=== PATIENT | male | born 1945 | race Caucasian/White ===

== ENCOUNTER → 2016-09-30 | Outpatient (CLI) | payer OTHER ==
[~2016-09-30] MED LIST: ANSHCCR TOP; ANT25 PO; ASPI81TA28 PO; AZEL0.056 NAE; CLOP1TAB15 PO; CRS/10 PO; DIME50TA49 PO; DUTA0.5C PO; LISI-729 PO; METO25TA3 PO; NITR0.4S UT; PRLSR20 PO
--- NOTE | 2016-09-30 11:15 | DIAGNOSTIC IMAGING REPORT ---
L-SPINE MIN 4 VIEWS ROUTINE CLINICAL HISTORY: M54.30 [id number] COMPARISON STUDY: No previous studies for comparison. FINDINGS: There are multilevel degenerative changes. No fractures subluxations or destructive lesions are visualized on conventional radiographic evaluation. There is moderate facet joint arthropathy at the L4-5 and L5-S1 levels. IMPRESSION: Mild multilevel degenerative change. No fractures subluxations or destructive lesions are visualized on conventional radiographic evaluation Electronically signed by: Cas Arcos M.D. 09/30/2016 11:14 AM Dictated Date/Time: 09/30/2016 11:13 AM
--- NOTE | 2016-09-30 11:17 | DIAGNOSTIC IMAGING REPORT ---
THORACIC SPINE 3 VIEWS HISTORY: Pain. Neuropathy. M54.30 [id number] COMPARISON: None. FINDINGS: There is no fracture. No subluxation. Considerable degenerative disc changes throughout. Anterior osteophytic changes throughout the mid to lower thoracic region. No acute process. Postoperative changes over the pulmonary apices bilaterally. IMPRESSION: Moderate to rather significant degenerative change primarily of the mid to lower thoracic region. No acute process. Electronically signed by: Lazaro Garcia M.D. 09/30/2016 11:15 AM Dictated Date/Time: 09/30/2016 11:15 AM
== END | disposition home or self-care (01) ==
LOC: C.RAD 10:26
PROVIDERS: ATTEND Physician Assistant Medical
DX: M54.30 Sciatica, unspecified side (principal)

== ENCOUNTER → 2016-10-28 | Outpatient (CLI) | payer OTHER ==
[2016-10-28 12:35] LABS: BASO % 0.7 %; BASO ABS # 0.04 K/uL (0-0.2); COMPLETE YES; EOS % 2.7 %; HEMATOCRIT 44.5 % (42-52); IG% 0.5 %; LYMPH % 24.9 %; LYMPH ABS # 1.37 K/uL (1.2-3.4); MEAN CELL VOLUME 90.3 fL (80-100); MEAN CORPUSCULAR HEMOGLOBIN 30.6 pg (25-34); MEAN CORPUSCULAR HGB CONC 33.9 g/dl (32-36); NEUT % 61.2 %; PLATELET COUNT 189 K/uL (130-400); RED BLOOD COUNT 4.93 M/uL (4.7-6.1)
[2016-10-28 14:12] LABS: ESTIMATED AVERAGE GLUCOSE 117 mg/dl; HA1C FLAG Normal (Normal)
== END | disposition home or self-care (01) ==
LOC: C.LABBFT 08:35
PROVIDERS: ATTEND Internal Medicine
DX: R73.01 Impaired fasting glucose (principal)

== ENCOUNTER → 2016-12-23 | Outpatient (CLI) | payer OTHER ==
[2016-12-24 18:20] LABS: ALBUMIN 3.9 G/DL (3.8-4.8); GAMMA GLOBULIN 0.8 G/DL (0.8-1.7); TOTAL PROTEIN 6.2 G/DL (6.2-8.3)
[2016-12-26 14:05] LABS: ALBUMIN % 52.23 %; ALPHA-2-GLOBULIN % 10.18 %; CREATININE UR 116 MG/DL (20-370); GAMMA GLOBULIN % 17.31 %
--- NOTE | 2016-12-29 12:54 | CODING QUERY MEDICAL NECESSITY ---
SUPPORTING DIAGNOSIS NEEDED A supporting diagnosis is required for the test/procedure performed on this patient in order for us to be reimbursed by the patient's insurance. Please provide a supporting diagnosis for the following test/procedure listed below next to the test name along with your signature. *If there is no additional diagnosis for this patient that would support the following test/procedure please document that below next to the test/procedure. Test(s)/Procedure(s) that require a supporting diagnosis: * VITAMIN B12 DIAGNOSIS: Provider Signature: Date: Thank you Jacki [place] [employer] Once completed, please kindly fax back to [phone] For questions please call [phone]
== END | disposition home or self-care (01) ==
LOC: C.LABBFT 10:12
PROVIDERS: ATTEND Internal Medicine
DX: M54.5 Low back pain (principal); M79.606 Pain in leg, unspecified; M54.16 Radiculopathy, lumbar region; G62.9 Polyneuropathy, unspecified

== ENCOUNTER → 2017-01-23 | Outpatient (CLI) | payer OTHER | END | disposition home or self-care (01) | LOC: C.LABBFT 12:54 | PROVIDERS: ATTEND Urology | DX: N40.0 Benign prostatic hyperplasia without lower urinary tract symptoms (principal) ==

== ENCOUNTER → 2017-01-29 | Outpatient (CLI) | payer OTHER ==
--- NOTE | 2017-01-29 12:38 | DIAGNOSTIC IMAGING REPORT ---
LEFT HIP UNILATERAL 2 VIEWS CLINICAL HISTORY: 71 years-old Male presenting with left hip pain, no injury. TECHNIQUE: Frontal and frog-leg lateral views of the left hip were obtained. COMPARISON: Correlation made to CT of the abdomen and pelvis from 2010. FINDINGS: No acute fracture or malalignment. Joint space appears preserved. Mild degenerative changes with suggestion of subchondral sclerosis and cystic change at the superior acetabulum. Humeral head is normal in configuration. Atherosclerosis. Pelvic phlebolith noted. IMPRESSION: No acute osseous injury of the left hip. Degenerative changes as above. Electronically signed by: Quoc Ponce M.D. 01/29/2017 12:36 PM Dictated Date/Time: 01/29/2017 12:34 PM
== END | disposition home or self-care (01) ==
LOC: C.RAD 12:09
PROVIDERS: ATTEND Physician Assistant Medical
DX: M25.552 Pain in left hip (principal)

== ENCOUNTER → 2017-03-13 | Outpatient (CLI) | payer OTHER ==
--- NOTE | 2017-03-13 13:20 | DIAGNOSTIC IMAGING REPORT ---
FLUOROSCOPICALLY GUIDED LEFT HIP INTRA-ARTICULAR STEROID INJECTION CLINICAL HISTORY: Left hip degenerative joint disease. COMPARISON STUDY: Left hip radiographs January 29, 2017. FLUOROSCOPY TIME: 16 seconds. PROCEDURE: The procedure, risks and benefits were discussed with the patient. The patient agreed to the procedure and informed written consent was obtained. The procedure was performed by Dr. Chance following a timeout. Skin overlying the left hip joint was prepped and draped in sterile fashion and local anesthesia was achieved with 1% lidocaine. Under intermittent fluoroscopic guidance, a 3 1/2 inch 22-gauge spinal needle was directed into the left hip joint. Positioning within the joint space was confirmed with injection of 1 cc of Optiray 300. At this time, a mixture of 2 cc of Celestone and 5 cc of 0.5% Marcaine was injected into the left hip joint. The needle was removed. The patient tolerated the procedure well and no immediate complications were evident. One fluoroscopic image was obtained. IMPRESSION: Fluoroscopically guided left hip intra-articular injection of 2 cc of Celestone and 5 cc of 0.5% Marcaine. Electronically signed by: Royal Chance M.D. 03/13/2017 1:19 PM Dictated Date/Time: 03/13/2017 1:18 PM
== END | disposition home or self-care (01) ==
LOC: C.RADBC 12:26
PROVIDERS: ATTEND Orthopaedic Surgery
DX: M16.12 Unilateral primary osteoarthritis, left hip (principal)

== ENCOUNTER → 2018-02-19 | Outpatient (CLI) | payer OTHER ==
[~2018-02-19] MED LIST changes: +COEN100C28 PO; -CRS/10 PO; +FLUT50SP45 NAE; -LISI-729 PO; +LSN/10125 PO; +MONT1TAB5 PO; -PRLSR20 PO; +RANI150T85 PO; +ROSU20TA PO
--- NOTE | 2018-02-19 11:15 | DIAGNOSTIC IMAGING REPORT ---
SI JOINTS 3 OR MORE VIEWS CLINICAL HISTORY: 72 years-old Male presenting with M46.1 Sacroiliitis. TECHNIQUE: Frontal and bilateral oblique views of the sacroiliac joints were obtained. COMPARISON: CT of abdomen pelvis from 2010. FINDINGS: Asymmetric sclerosis and cystic change suggested at the superior aspect of the right sacroiliac joint. Otherwise sacroiliac joints symmetric and congruent. No evidence of erosion or osseous fusion. Arcuate lines of the sacrum grossly intact. Endoscopy clip projects over the right lower quadrant. IMPRESSION: Subchondral sclerosis and cystic change at the superior portion of the right sacral iliac joint. This is nonspecific and may represent degenerative change. No convincing evidence of osseous erosion to suggest an inflammatory arthropathy. Further evaluation with MR could be obtained as clinically appropriate. Electronically signed by: Quoc Ponce M.D. 02/19/2018 11:14 AM Dictated Date/Time: 02/19/2018 11:09 AM
== END | disposition home or self-care (01) ==
LOC: C.RAD1850 10:56
PROVIDERS: ATTEND Physician Assistant Medical
DX: M46.1 Sacroiliitis, not elsewhere classified (principal)

== ENCOUNTER → 2018-02-19 | Outpatient (CLI) | payer OTHER | END | disposition home or self-care (01) | LOC: C.LABBFT 09:24 | PROVIDERS: ATTEND Physician Assistant Medical | DX: N40.1 Benign prostatic hyperplasia with lower urinary tract symptoms (principal) ==

== ENCOUNTER 2018-07-19 19:49 | Inpatient (IN) | END 2018-07-22 17:55 | disposition home or self-care (01) | LOC: ED 19:49 → SUATTDRO 22:36 → 2N 22:36 ==

== ENCOUNTER 2018-11-22 07:12 | Observation (INO) ==
--- NOTE | 2018-11-22 07:31 | Emergency Department Note ---
Entered by Izabel Gabriel acting as a scribe for Zeeshan Melgoza MD History of Present Illness General Chief complaint: Chest Pain Source: patient and EMS Mode of arrival: ambulatory Limitations: no limitations History of Present Illness Provider complaint: chest pain Onset (ago): week(s) (a few) Location: chest Radiation: extremity (shoulders) and other (jaw) Pain Consistency: + intermittent Quality: + other (pressure) Exacerbated By: + other (exertion) Associated symptoms: + other (dizzy); no diaphoresis, no nausea/vomiting, no shortness of breath and no weakness Treatments prior to arrival: aspirin The patient is a 73 year old male who presents to the ER via EMS with complaints of an intermittent chest pain that began a few weeks ago. The patient describes the pain as a �pressure� and reports that it does radiate to his shoulders and jaw at times. He denies any episodes of diaphoresis. He also states that the pain onsets when exerting himself but notes today�s episode did not. He reports that he did have an episode of dizziness yesterday but denies any injuries, trauma, nausea, or vomiting. He also denies any shortness of breath or pain when breathing. Per EMS, the patient was given aspirin en route. He denies any numbness or weakness anywhere. The patient notes that he does have 2 stents ashley jennifer. Home Medications Home Medications Medication Instructions Recorded Confirmed Type azelastine 0.15 % (205.5 mcg) 2 sprays INTNAS HS 03/12/18 11/22/18 History nasal spray clopidogrel 75 mg tablet 75 mg PO HS 03/12/18 11/22/18 History coenzyme Q10 100 mg capsule 100 mg PO BID cap 03/12/18 11/22/18 History dutasteride 0.5 mg capsule 0.5 mg PO QDL 03/12/18 11/22/18 History fluticasone propionate 50 2 sprays INTNAS QAM 03/12/18 11/22/18 History mcg/actuation nasal spray,suspension metoprolol succinate ER 25 mg 25 mg PO QDL 03/12/18 11/22/18 History capsule sprinkle, ext. release 24 hr montelukast 10 mg tablet 10 mg PO HS 03/12/18 11/22/18 History nitroglycerin 0.3 mg sublingual 0.3 mg SL Q5M PRN 03/12/18 11/22/18 History tablet ranitidine 150 mg tablet 150 mg PO BID 03/12/18 11/22/18 History rosuvastatin 20 mg tablet 20 mg PO HS 03/12/18 11/22/18 History aspirin [Aspir-81] 81 mg PO QAM 07/19/18 11/22/18 History lisinopril-hydrochlorothiazide 1 tab PO QAM 07/19/18 11/22/18 History hydrocortisone 2.5 % topical cream 1 applic PA .USE DIRECTED. #1 gm 11/19/18 11/22/18 History with perineal applicator Allergies Allergy/AdvReac Type Severity Reaction Status Date / Time Sulfa (Sulfonamide Allergy Intermediate HIVES Verified 11/22/18 09:13 Antibiotics) pravastatin AdvReac Mild MUSCLE Verified 11/22/18 09:13 ACHES simvastatin AdvReac Mild MUSCLE Verified 11/22/18 09:13 ACHES Past Med/Surg History Medical History Other chronic sinusitis (Acute) Sciatica (Acute) Sacroiliitis (Acute) Retention of urine (Acute) Presence of stent in LAD coronary artery (Acute) Pre-diabetes (Acute) Polyneuropathy (Acute) Paresthesia of right arm (Acute) Obesity (Acute) Nephrolithiasis (Acute) Nasal polyps (Acute) Microscopic hematuria (Acute) Lumbar radiculopathy (Acute) Low back pain (Acute) Keloid scar (Acute) Inguinal hernia (Acute) Impaired fasting glucose (Acute) Hypertrophy of nasal turbinates (Acute) Hemorrhoids (Acute) Dyslipidemia (Acute) Chronic sinusitis, unspecified (Acute) Carotid artery plaque (Acute) Benign prostate hyperplasia (Acute) Benign localized hyperplasia of prostate with urinary obstruction (Acute) Benign colonic polyp (Acute) Anosmia (Acute) Allergic rhinitis (Acute) Actinic keratosis (Acute) Acquired deviated nasal septum (Acute) Encounter for pre-operative examination Chest pain (Acute) Chest pain (Acute) Dysuria (Acute) Pneumonia (Acute) Unstable angina (Acute 04/08/14) Vertigo (Acute) Constantine disease (Chronic) Cor athrscl-uns vessel (Chronic 08/22/12) Benign hypertension (Chronic 08/22/12) BPH w/o urinary obs/LUTS (Chronic 08/22/12) Encounter for pre-operative examination CAD (coronary artery disease) GERD (gastroesophageal reflux disease) Acute blood loss anemia Hypertension (Chronic) Arthritis (Chronic) PAD (peripheral artery disease) (Chronic) Chronically on Plavix Calculus of kidney (Resolved 08/22/12) BPH (benign prostatic hyperplasia) (Acute) CAD (coronary artery disease) GERD (gastroesophageal reflux disease) Hyperlipidemia Osteoarthritis Surgical History Percutaneous transluminal coronary angioplasty status (08/22/12) History of adenoidectomy History of inguinal herniorrhaphy History of umbilical hernia repair History of tonsillectomy H/O transurethral resection of prostate History of cardiac cath 2007 AND 2012 History of cataract surgery LEFT CATARACT History of colonoscopy History of esophagogastroduodenoscopy (EGD) History of heart artery stent 2007 AND 2012 (2 TOTAL STENTS) History of herniorrhaphy RT/LEFT INGUINAL History of tonsillectomy History of tooth extraction Nasal polyps REMOVED Family History Grandmother Family history of diabetes mellitus Father Coronary heart disease Mother Coronary heart disease Social History Preferred Language: Frisian Communication Ability: Effective Beliefs That Will Affect Care: None marital status: / Current Living Situation: Alone current occupational status: retired 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 Other Information That Helps Us Care for You: No Feels Safe at Home: Yes Safety Concerns: Feels Safe At This Time Smoking Status: Former smoker Tobacco Type: cigarettes packs per day: 1 Years S moked: 20 Smoking End Date: 2004 Number of Years Since Quit: 14 Second Hand Exposure: No Hx Alcohol Use: Yes Hx Substance Use: No Review of Systems See HPI for pertinent positives & negatives. and A total of 10 systems reviewed and were otherwise negative Physical Exam Vital Signs Vital Signs - 24 hr 11/22/18 07:30 11/22/18 08:32 11/22/18 09:03 Temperature 36.7 C Temperature Source Oral Sepsis Recent Fever Within 48 Hours No Sepsis New/Unexplained Change in Mental Status No Sepsis Action Taken by Nursing No Action Required Pulse Rate 70 Pulse Rate [Apical] 55 L 57 L Pulse Rhythm [Apical] Regular Regular Pulse Strength [Apical] Normal Normal Respiratory Rate 19 16 16 Respiratory Effort / Characteristics Non-Labored Non-Labored Spontaneous Respiratory Depth Normal Normal Blood Pressure 185/86 H Blood Pressure [Right Arm] 142/80 H 161/79 H Blood Pressure Mean 119 Blood Pressure Mean [Right Arm] 100 106 Blood Pressure Position [Right Arm] Sitting Pulse Oximetry 96 96 96 Oxygen Delivery Method Room Air Room Air Room Air 11/22/18 09:05 Temperature Temperature Source Sepsis Recent Fever Within 48 Hours Sepsis New/Unexplained Change in Mental Status Sepsis Action Taken by Nursing Pulse Rate Pulse Rate [Apical] Pulse Rhythm [Apical] Pulse Strength [Apical] Respiratory Rate Respiratory Effort / Characteristics Non-Labored Spontaneous Respiratory Depth Normal Blood Pressure Blood Pressure [Right Arm] Blood Pressure Mean Blood Pressure Mean [Right Arm] Blood Pressure Position [Right Arm] Pulse Oximetry Oxygen Delivery Method Room Air General: Non-ill appearing older male in no acute distress. HEENT: Normal cephalic atraumatic. Pupils are equal round and reactive to light. Extraocular movements are intact. Oropharynx is pink with moist mucous mem branes. No swelling of the mouth lips or tongue. Neck: Supple with a midline trachea. No meningeal signs or stiffness, no JVD or bruits. No Stridor. Chest: Clear to auscultation bilaterally. No wheezes or rhonchi. No increased work of breathing. Heart: Irregular with bigeminy seen on monitor. Abdomen: Soft nontender, nondistended without rebound guarding or rigidity. Extremities: No cyanosis clubbing or edema. No calf tenderness or asymmetry Spine/Back. Non tender to palpation. No CVA tenderness Skin: Good turgor without rashes. Neurologic exam: Cranial nerves two through 12 are intact. Motor and sensation are intact and symmetrical throughout. Course 0717: Past medical records reviewed. The patient was evaluated in room B2. A complete history and physical examination was performed. 0815: I discussed the patient�s case with Dr. Devlin � [facility] Hospitalist. She will evaluate the patient for further management. Administered Medications Aspirin (Ecotrin Ectab) 81 mg PO DAILY LACHELLE Stop: 12/22/18 10:56 Last Admin: 11/22/18 13:07 Dose: 81 mg Documented by: [id number] Lisinopril/HCTZ (Prinzide 10/12.5mg) 1 tab PO DAILY LACHELLE Stop: 12/22/18 10:56 Last Admin: 11/22/18 13:07 Dose: 1 tab Documented by: [id number] Sodium Chloride (Nss 1000ml) 1,000 mls @ 80 mls/hr IV .[id number] LACHELLE Stop: 12/22/18 09:44 Last Admin: 11/22/18 09:57 Dose: 80 mls/hr Documented by: [id number] Metoprolol Succinate (Toprol Xl) 25 mg PO Q24H LACHELLE Stop: 12/22/18 11:59 Last Admin: 11/22/18 13:08 Dose: 25 mg Documented by: [id number] Miscellaneous (Order Awaiting Action) 1 ea N/A QS LACHELLE Stop: 12/22/18 15:59 Last Admin: 11/22/18 15:18 Dose: Not Given Documented by: [id number] Polyethylene Glycol (Miralax Powder Packet) 17 gm PO DAILY LACHELLE Stop: 12/22/18 10:56 Last Admin: 11/22/18 13:07 Dose: Not Given Documented by: [id number] Ranitidine HCl (Zantac) 150 mg PO BID LACHELLE Stop: 12/22/18 10:56 Last Admin: 11/22/18 13:08 Dose: 150 mg Documented by: [id number] Medical Decision Making Differential Diagnosis Differential diagnosis includes: ACS, arrhythmia, CHF, anemia, electrolyte and metabolic abnormality. Medical Records Attestation: I reviewed the patient's medical records. Home Medications Current Medication List: was personally reviewed by me Laboratory Data Attestation: I reviewed the patient's lab results. Result diagrams: 11/22/18 07:24 11/22/18 07:24 Lab Results 11/22/18 11/22/18 11/22/18 Range/Units 07:24 07:24 07:25 WBC 5.80 (4.8-10.8) K/uL RBC 5.03 (4.7-6.1) M/uL Hgb 13.8 L (14.0-18.0) g/dL Hct 41.4 L (42-52) % MCV 82.3 (80-100) fL MCH 27.4 (25-34) pg MCHC 33.3 (32-36) g/dL RDW Std Deviation 44.3 (36.4-46.3) fL RDW Coeff of Rogelio 14.8 H (11.5-14.5) % Plt Count 175 (130-400) K/uL MPV 9.4 (7.4-10.4) fL Immature Gran % (Auto) 0.3 % Neut % (Auto) 68.2 % Lymph % (Auto) 17.2 % Bandera % (Auto) 11.6 % Eos % (Auto) 2.4 % Baso % (Auto) 0.3 % Immature Gran # (Auto) 0.02 (0.00-0.02) K/uL Neut # (Auto) 3.95 (1.4-6.5) K/uL Lymph # (Auto) 1.00 L (1.2-3.4) K/uL Bandera # (Auto) 0.67 H (0.11-0.59) K/uL Eos # (Auto) 0.14 (0-0.5) K/uL Baso # (Auto) 0.02 (0-0.2) K/uL PT 10.8 (9.0-12.0) Seconds INR 1.1 (0.9-1.1) Sodium 143 (136-145) mmol/L Potassium 4.1 (3.5-5.1) mmol/L Chloride 110 H (98-107) mmol/L Carbon Dioxide 26 (21-32) mmol/L Anion Gap 7.0 (3-11) BUN 13 (7-18) mg/dl Creatinine 0.98 (0.6-1.4) mg/dl Est Cr Clr Drug Dosing 80.5 ml/min Est GFR ( Amer) 87.1 Est GFR (Non-Af Amer) 75.1 BUN/Creatinine Ratio 13.3 (10-20) Glucose 122 H (70-99) mg/dl Calcium 8.1 L (8.5-10.1) mg/dl Total Bilirubin 0.4 (0.2-1) mg/dl AST 17 (15-37) U/L ALT 28 (12-78) U/L Alkaline Phosphatase 79 (45-117) U/L Troponin I < 0.015 (0-0.045) ng/ml Total Protein 6.4 (6.4-8.2) gm/dl Albumin 3.2 L (3.4-5.0) gm/dl Globulin 3.2 (2.5-4.0) gm/dl Albumin/Globulin Ratio 1.0 (0.9-2) Lipase 162 (73-393) U/L Imaging Data Radiologist's Impression: Radiology results as stated below per my review and the radiologist's interpretation: XR chest 1V portable CLINICAL HISTORY: Chest Pain dyspnea COMPARISON STUDY: 07/19/2018 FINDINGS: Mild stable cardiomegaly. Improving pleural reactive changes left base. Lungs otherwise appear clear. IMPRESSION: No acute process. The above report was generated using voice recognition software. It may contain grammatical, syntax or spelling errors. Electronically signed by: Lazaro Garcia M.D. 11/22/2018 7:34 AM ECG Data Attestation: I personally reviewed and interpreted this ECG as follows: Indication: chest pain Rate (beats per minute): 59 Rhythm: normal sinus (with couplets) Findings: + other (poor basleine, likely bigeminy, poor R wave progression); no acute ischemic change Comparison ECG Date: from (19-JUL-2018) Change: no significant change Blood Pressure Blood Pressure Findings: Elevated blood pressure Blood Pressure Disposition: further management by hospitalist MDM Narrative This patient comes in as described above. He was placed in room B2. Was brought in by EMS after having intermittent chest pain. It seems mostly exertional. He does have a cardiac history with stents in the past. They gave him aspirin prior to arrival. he was also dizzy yesterday. At present he feels better at rest and has no chest pain. IV access an EKG was obtained. EKG shows bigeminy with poor R wave progression, there is no acute STEMI changes. Multiple blood testing was obtained as well as chest x-ray. He was reassessed frequently. I have reviewed his old records. His initial troponin was negative. Chest x-ray does not suggest acute coronary syndrome or arrhythmia. He does have a significant cardiac history and I am concerned that his symptoms are exertional and concerning for angina. I have consulted the hospitalist for admission/observation. Impression & Plan Chest pain Discharge Plan Visit Data *Final* Discharge Date/Time: 11/22/18 10:31 Chief Complaint: Chest Pain ED Provider: Zeeshan Melgoza Discharge Problem: Chest pain Patient Disposition: Admitted As Inpatient Discharge Instructions Interventions: ED Discharge Assessment Last Done: 11/22/18 10:31 Discharge Problem: Chest pain Qualifiers: Chest pain type: unspecified Qualified Code(s): R07.9 - Chest pain, unspecified The scribe's documentation has been prepared under my direction and personally reviewed by me in its entirety. I confirm that the note above accurately reflects all work, treatment, procedures, and medical decision making performed by me.
[2018-11-22 07:33] LABS: Basophils # (auto) 0.02 K/uL (0-0.2); Basophils % (auto) 0.3 %; Eosinophils # (auto) 0.14 K/uL (0-0.5); Eosinophils % (auto) 2.4 %; Hematocrit (blood only) 41.4 % (42-52); Hemoglobin 13.8 g/dL (14.0-18.0); Immature Granulocytes # (auto) 0.02 K/uL (0.00-0.02); Immature Granulocytes % (auto) 0.3 %; Lymphocytes % (auto) 17.2 %; Mean Corpuscular Hgb Conc 33.3 g/dL (32-36); Mean Corpuscular Volume 82.3 fL (80-100); Mean Platelet Volume 9.4 fL (7.4-10.4); Monocytes # (auto) 0.67 K/uL (0.11-0.59); Monocytes % (auto) 11.6 %; Neutrophils # (auto) 3.95 K/uL (1.4-6.5); Neutrophils % (auto) 68.2 %; Platelet Count 175 K/uL (130-400); RDW Coefficient of Variation 14.8 % (11.5-14.5); RDW Standard Deviation 44.3 fL (36.4-46.3); Red Blood Count 5.03 M/uL (4.7-6.1)
--- NOTE | 2018-11-22 07:35 | XRay Report ---
XR chest 1V portable CLINICAL HISTORY: Chest Pain dyspnea COMPARISON STUDY: 07/19/2018 FINDINGS: Mild stable cardiomegaly. Improving pleural reactive changes left base. Lungs otherwise rafa ear clear. IMPRESSION: No acute process. The above report was generated using voice recognition software. It may contain grammatical, syntax or spelling errors. Electronically signed by: Lazaro Garcia M.D. 11/22/2018 7:34 AM
[2018-11-22 07:50] LABS: Alanine Aminotransferase 28 U/L (12-78); Albumin Level 3.2 gm/dl (3.4-5.0); Aspartate Aminotransferase 17 U/L (15-37); BUN Creatinine Ratio 13.3 (10-20); Blood Urea Nitrogen 13 mg/dl (7-18); Calcium 8.1 mg/dl (8.5-10.1); Carbon Dioxide 26 mmol/L (21-32); Chloride 110 mmol/L (98-107); Creatinine Clr Calc Pharmacy 80.5 ml/min; Est GFR (African American) 87.1; Est GFR (Non-African American) 75.1; Glucose 122 mg/dl (70-99); Potassium 4.1 mmol/L (3.5-5.1); Sodium 143 mmol/L (136-145)
[2018-11-22 07:55] LABS: Alkaline Phosphatase 79 U/L (45-117); Bilirubin,Total 0.4 mg/dl (0.2-1); Globulin 3.2 gm/dl (2.5-4.0); Total Protein 6.4 gm/dl (6.4-8.2); Troponin I < 0.015 ng/ml (0-0.045)
--- NOTE | 2018-11-22 09:20 | History & Physical Report ---
Date of Service November 22, 2018 Assessment & Plan (1) Unstable angina: - Presented with sternal chest pain this morning; has had intermittent episodes of angina with exertion at home for 2-3 weeks. - EKG was similar to prior studies; will trend daily x 2. - Trop was negative; trend q6hr x 3. - Cardiology consulted, follows with Dr. Seals; will be NPO for possible procedure. - Continue metoprolol, statin, aspirin and plavix as prescribed; no indication for Heparin drip or Nitropaste at this time. (2) Coronary artery disease: - Status post cardiac cath in 2007 and 2012 -- has had 2 stents placed during procedures. - Follows with Dr. Seals. - Continue statin, aspirin, plavix, beta miguelangel as prescribed. (3) Benign prostate hyperplasia: - Continue Dutasteride as prescribed -- pt. will need to bring med from home. (4) GERD (gastroesophageal reflux disease): - Continue Ranitidine as prescribed. (5) Benign hypertension: - Continue Metoprolol and HCTZ/Lisinopril as prescribed. - BP was elevated at admission, will monitor. (6) PAD (peripheral artery disease): - Has been evaluated by Dr. Maurice, no surgical intervention indicated. - Continue plavix, aspirin and statin as prescribed. - Has weak left posterior tibial pulse, consider BARRY for evaluation. (7) HLD (hyperlipidemia): - Continue statin as prescribed. (8) Hemorrhoids: - Admitted in Jul 2018 for rectal bleeding, was likely related to hemorrhoids. - Continue Miralax daily to prevent constipation. (9) Allergic rhinitis: - Holding home Flonase and Singulair. (10) History of cataract: - S/p surgical intervention in past. - Does not currently use eye drops. (11) DVT prophylaxis: - Heparin q8hr. FEN/GI: NPO except meds; IVFs at 80 cc/hr due to NPO status; Famotidine BID. Dispo: Med/surg, observation status for cardiac work up. Cardiology consulted. FULL CODE History of Present Illness Chief Complaint: Chest Pain Primary Care Provider: Isaac Mendoza MD Mr. Bee is a 73 year old male with past medical history of coronary artery disease status post placement of 2 stents, HTN, HLD, PAD, BPH, GERD, osteoarthritis who presented with acute chest pain. Pt. has had intermittent chest pain over the last 2-3 weeks. He states chest pain develops with exertion and lasts for up to 1 hour. Denies chest pain at rest prior to admission with exception of this morning. Has radiation of pain to jaw over last few weeks as well during acute episodes; denies nausea/vomiting, SOB at home. He developed dizziness last evening with standing. Pt. felt like he was "staggering" due to symptoms. He woke up this morning around 5:30 am and had sternal chest pain. Pain was rated as a 2/10 on pain scale. Had pain in both elbows, otherwise denied radiation of pain to jaw, neck or arms. Chest pain was ongoing for ~1 hour, is now completely resolved. Denies shortness of breath, LE edema, nausea or vomiting, abd pain, fever/chills, diarrhea or constipation (takes Miralax daily), dysuria or hematuria, recurrent rectal bleeding or melena. Most recent cardiac cath was in 2012; he follows with Dr. Seals and was recently evaluated as outpatient. Pt. was instructed to take Plavix every other day. He does have h/o PAD, was evaluated by Dr. Maurice but surgical intervention was not indicated. He has occasional claudication but denies persistent, severe LLE pain in setting of stenosis. He did take morning meds at home, including Aspirin 81 mg. Has not received Nitroglycerin tablets for chest pain. EKG was similar to prior studies; Troponin was negative. Will admit to observation status for cardiac monitoring and cardiology consult. Allergies Allergy/AdvReac Type Severity Reaction Status Date / Time Sulfa (Sulfonamide Allergy Intermediate HIVES Verified 11/22/18 09:13 Antibiotics) pravastatin AdvReac Mild MUSCLE Verified 11/22/18 09:13 ACHES simvastatin AdvReac Mild MUSCLE Verified 11/22/18 09:13 ACHES Home Medications Home Medications Medication Instructions Recorded Confirmed Type azelastine 0.15 % (205.5 mcg) 2 sprays INTNAS HS 03/12/18 11/22/18 History nasal spray coenzyme Q10 100 mg capsule 100 mg PO BID cap 03/12/18 11/22/18 History dutasteride 0.5 mg capsule 0.5 mg PO QDL 03/12/18 11/22/18 History fluticasone propionate 50 2 sprays INTNAS QAM 03/12/18 11/22/18 History mcg/actuation nasal spray,suspension metoprolol succinate ER 25 mg 25 mg PO QDL 03/12/18 11/22/18 History capsule sprinkle, ext. release 24 hr montelukast 10 mg tablet 10 mg PO HS 03/12/18 11/22/18 History ranitidine 150 mg tablet 150 mg PO BID 03/12/18 11/22/18 History rosuvastatin 20 mg tablet 20 mg PO HS 03/12/18 11/22/18 History aspirin [Aspir-81] 81 mg PO QAM 07/19/18 11/22/18 History lisinopril-hydrochlorothiazide 1 tab PO QAM 07/19/18 11/22/18 History hydrocortisone 2.5 % topical cream 1 applic DE .USE DIRECTED. #1 gm 11/19/18 11/22/18 History with perineal applicator clopidogrel [Plavix] 75 mg PO Q48H #0 tab 11/23/18 11/22/18 Rx isosorbide mononitrate 30 mg PO QAM 30 Days #30 tab 11/23/18 Rx nitroglycerin 0.4 mg SUBLINGUAL Q5M #10 tab 11/23/18 Rx Past Med/Surg History Medical History Other chronic sinusitis (Acute) Sciatica (Acute) Sacroiliitis (Acute) Retention of urine (Acute) Presence of stent in LAD coronary artery (Acute) Pre-diabetes (Acute) Polyneuropathy (Acute) Paresthesia of right arm (Acute) Obesity (Acute) Nephrolithiasis (Acute) Nasal polyps (Acute) Microscopic hematuria (Acute) Lumbar radiculopathy (Acute) Low back pain (Acute) Keloid scar (Acute) Inguinal hernia (Acute) Impaired fasting glucose (Acute) Hypertrophy of nasal turbinates (Acute) Hemorrhoids (Acute) Dyslipidemia (Acute) Chronic sinusitis, unspecified (Acute) Carotid artery plaque (Acute) Benign prostate hyperplasia (Acute) Benign localized hyperplasia of prostate with urinary obstruction (Acute) Benign colonic polyp (Acute) Anosmia (Acute) Allergic rhinitis (Acute) Actinic keratosis (Acute) Acquired deviated nasal septum (Acute) Encounter for pre-operative examination Chest pain (Acute) Chest pain (Acute) Dysuria (Acute) Pneumonia (Acute) Unstable angina (Acute 04/08/14) Vertigo (Acute) Constantine disease (Chronic) Cor athrscl-uns vessel (Chronic 08/22/12) Benign hypertension (Chronic 08/22/12) BPH w/o urinary obs/LUTS (Chronic 08/22/12) Encounter for pre-operative examination CAD (coronary artery disease) GERD (gastroesophageal reflux disease) Acute blood loss anemia Hypertension (Chronic) Arthritis (Chronic) PAD (peripheral artery disease) (Chronic) Chronically on Plavix Calculus of kidney (Resolved 08/22/12) BPH (benign prostatic hyperplasia) (Acute) CAD (coronary artery disease) GERD (gastroesophageal reflux disease) Hyperlipidemia Osteoarthritis Surgical History Percutaneous transluminal coronary angioplasty status (08/22/12) History of adenoidectomy History of inguinal herniorrhaphy History of umbilical hernia repair History of tonsillectomy H/O transurethral resection of prostate History of cardiac cath 2007 AND 2012 History of cataract surgery LEFT CATARACT History of colonoscopy History of esophagogastroduodenoscopy (EGD) History of heart artery stent 2007 AND 2012 (2 TOTAL STENTS) History of herniorrhaphy RT/LEFT INGUINAL History of tonsillectomy History of tooth extraction Nasal polyps REMOVED Family History Grandmother Family history of diabetes mellitus Father Coronary heart disease Mother Coronary heart disease Social History Preferred Language: [place] Communication Ability: Effective Beliefs That Will Affect Care: None marital status: / Current Living Situation: Alone current occupational status: retired 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 Other Information That Helps Us Care for You: No Feels Safe at Home: Yes Safety Concerns: Feels Safe At This Time Smoking Status: Former smoker Tobacco Type: cigarettes packs per day: 1 Years Smoked: 20 Smoking End Date: 2004 Number of Years Since Quit: 14 Second Hand Exposure: No Hx Alcohol Use: Yes Hx Substance Use: No Review of Systems Review of Systems: All systems reviewed & are unremarkable except as noted in HPI & below Constitutional: no fever, no chills, no fatigue, no weakness and no anorexia Eyes: no spots in vision and no worsening vision Ear, Nose, Mouth, Throat: + dizziness (last evening, now resolved. ); no nasal congestion, no nasal discharge, no post nasal drip, no sinus pain/pressure and no sore throat Respiratory: no cough, no chest congestion, no dyspnea, no dyspnea on exertion and no wheezing Cardiovascular: + chest pain, + chest pain at rest, + chest pain with activity, + radiating jaw, neck or arm pain and + claudication (Intermittent ); no dyspnea, no dyspnea at rest, no dyspnea on exertion, no lightheadedness, no syncope, no edema and no calf pain Gastrointestinal: no abdominal pain, no nausea, no vomiting, no constipation, no diarrhea/loose stools, no blood in stools and no melena Genitourinary: no dysuria and no urinary frequency Musculoskeletal: no back pain, no joint pain, no myalgia and no body aches Integumentary: no non-healing lesions Neurologic: + dizziness; no headache(s) Hematologic / Lymphatic: no easy bleeding and no easy bruising Allergy / Immunological: no rash Physical Exam Physical Exam: General: Resting comfortably in no apparent distress HEENT: NC/AT; PERRLA with EOMI; [place] conjunctiva, MMM. No erythema of posterior pharynx Neck: Supple and nontender Cardiac: RRR Lungs: CTA bilaterally Abdomen: Bowel normoactive X 4; Nontender to palpation Rectal: Deferred : Deferred Back: No tenderness Extremities: Warm. No edema present Neuro: No focal weakness Skin: No rash Results & Data Vital Signs (Past 12 Hours) Vital Signs Temp Pulse Pulse Resp BP BP Pulse Ox 11/22/18 09:03 57 L 16 161/79 H 96 11/22/18 08:32 55 L 16 142/80 H 96 11/22/18 07:30 36.7 C 70 19 185/86 H 96 Laboratory Results 11/22/18 11/22/18 Range/Units 07:24 07:24 WBC 5.80 (4.8-10.8) K/uL RBC 5.03 (4.7-6.1) M/uL Hgb 13.8 L (14.0-18.0) g/dL Hct 41.4 L (42-52) % MCV 82.3 (80-100) fL MCH 27.4 (25-34) pg MCHC 33.3 (32-36) g/dL RDW Std Deviation 44.3 (36.4-46.3) fL RDW Coeff of Rogelio 14.8 H (11.5-14.5) % Plt Count 175 (130-400) K/uL MPV 9.4 (7.4-10.4) fL Immature Gran % (Auto) 0.3 % Neut % (Auto) 68.2 % Lymph % (Auto) 17.2 % [place] % (Auto) 11.6 % Eos % (Auto) 2.4 % Baso % (Auto) 0.3 % Immature Gran # (Auto) 0.02 (0.00-0.02) K/uL Neut # (Auto) 3.95 (1.4-6.5) K/uL Lymph # (Auto) 1.00 L (1.2-3.4) K/uL [place] # (Auto) 0.67 H (0.11-0.59) K/uL Eos # (Auto) 0.14 (0-0.5) K/uL Baso # (Auto) 0.02 (0-0.2) K/uL Sodium 143 (136-145) mmol/L Potassium 4.1 (3.5-5.1) mmol/L Chloride 110 H (98-107) mmol/L Carbon Dioxide 26 (21-32) mmol/L Anion Gap 7.0 (3-11) BUN 13 (7-18) mg/dl Creatinine 0.98 (0.6-1.4) mg/dl Est Cr Clr Drug Dosing 80.5 ml/min Est GFR ( Amer) 87.1 Est GFR (Non-Af Amer) 75.1 BUN/Creatinine Ratio 13.3 (10-20) Glucose 122 H (70-99) mg/dl Calcium 8.1 L (8.5-10.1) mg/dl Total Bilirubin 0.4 (0.2-1) mg/dl AST 17 (15-37) U/L ALT 28 (12-78) U/L Alkaline Phosphatase 79 (45-117) U/L Troponin I < 0.015 (0-0.045) ng/ml Total Protein 6.4 (6.4-8.2) gm/dl Albumin 3.2 L (3.4-5.0) gm/dl Globulin 3.2 (2.5-4.0) gm/dl Albumin/Globulin Ratio 1.0 (0.9-2) Lipase 162 (73-393) U/L Code Status & VTE Plan Code Status FULL CODE VTE Prophylaxis Plan VTE Prophylaxis will be ordered: Yes Supervising Physician Co-Signing Physician Notes Attending Admission Note & Attestation - Pt seen/examined, chart reviewed, care plan d/w CARMEN Escalera. I agree w/ the ward components of her admission documentation. 73yo male with known CAD s/p multiple stents in the past (2007, 2012), HTN, and hyperlipidemia who presents with recurrent episodes of chest pain. No associated dyspnea. Some of the episodes have been exertional and some have been at rest. He did not try any nitroglycerin for the symptoms. Last stress test was in 2015 and was normal. No recent travel or other VTE risk factors. No GI symptoms. No pain with movement of the arms. PMH, PSH, allergies, meds, sochx, famhx, ros - reviewed Patient admits to considerable stress/anxiety/depression related to the of his son and which occurred about 1 year ago. VSS except BPs high gen - NAD, a/o x 3 neck - no JVD mouth - MMM heart - extra beats/irregular, s1, s2, no murmur lungs - CTA b/l chest - no reproducible chest wall pain abd - soft NT ND BS+ ext - no edema, pulses 2+ b/l labs - reviewed; troponin negative EKG - NSR, no ST changes, PACs chest x-ray - no infiltrates A/P: 73yo male with known CAD, HTN, hyperlipidemia, BPH, and anxiety/depression related to the of his & son in 2018 presenting with multiple episodes of chest pain over the last few days/weeks. Telemetry, serial troponins, cardiology consult, probable stress test tomorrow AM, NPO after MN. Needs improved BP control. Of note - LDL was 70 in 06/2018 -- defer on lipid check for now. Symptoms unlikely from pulmonary, GI or musculoskeletal etiology based on symptoms. Derrell Chauhan MD (1) GERD (gastroesophageal reflux disease) Esophagitis presence: esophagitis presence not specified Qualified Code(s): K21.9 - Gastro-esophageal reflux disease without esophagitis
[2018-11-22] MEDS: SODIUM CHLORIDE 0.9% 1000ML 1,000 ML IV SCH ×2 (09:57→21:02)
[2018-11-22] MEDS ORDERED: MoRPHine SULFATE 2 MG/ML CARP IV PRN (10:57)
[2018-11-22] MEDS ORDERED: ONDANSETRON INJ 2 MG/ML 2 ML VIAL IV PRN (10:57)
[2018-11-22] MEDS ORDERED: MAGNESIUM HYDROXIDE SUSP 30 ML UDC PO PRN (10:57)
[2018-11-22] MEDS ORDERED: NITROGLYCERIN SL 0.4 MG/TAB TAB SL PRN (10:57)
[2018-11-22 11:49] LABS: INR 1.1 (0.9-1.1); Prothrombin Time 10.8 Seconds (9.0-12.0)
[2018-11-22] MEDS: ASPIRIN 81 MG ECTAB PO SCH (13:07)
[2018-11-22] MEDS: LISINOPRIL/HCTZ 10/12.5MG TAB PO SCH (13:07)
[2018-11-22] MEDS: POLYETHYLENE (MIRALAX) 17 GM PACK PO SCH (13:07)
[2018-11-22] MEDS: METOPROLOL SUCC 25MG EXT REL TAB PO SCH (13:08)
--- NOTE | 2018-11-22 16:07 | Cardiology Consultation ---
Date of Consultation November 22, 2018 Assessment & Plan (1) Chest pain: His chest pain is concerning for angina. However, there are some atypical features such as the bilateral elbow discomfort. His history is somewhat vague at times, but some of the symptoms do appear to be related to exertion. Despite having extended episode of symptoms several days ago his cardiac biomarkers are currently normal. I think we will trend his markers over the course of the evening. If there is no evidence of objective ischemia we can perform dobutamine echocardiography. If there is evidence of ischemia perhaps angiography would be a better option. He can continue on his current dual anti-platelet regimen of aspirin and Plavix. There was some concern regarding occult gastrointestinal bleeding in the past and his Plavix was currently dosed every other day. He should also continue on his beta-miguelangel and rosuvastatin. (2) Coronary artery disease: He has previously undergone percutaneous intervention involving the right coronary and LAD. He did not recall any symptoms of chest discomfort leading up to those interventions. He is on a good regimen for secondary prevention which can be continued during his hospitalization. Based on his dobutamine echocardiogram in 2016 he has preserved LV systolic function. No evidence of pulmonary edema or heart failure at this point. History of Present Illness Reason for Consultation: Chest pain Requesting Physician: Quita Attending Physician: Derrell Chauhan History of Present Illness The patient is a 73-year-old gentleman with an extensive history of both coronary and vascular disease who presented to the hospital with symptoms of chest discomfort. The patient states that for several days he has been experiencing intermittent episodes of chest pain. He describes this as a pressure sensation in his precordium with radiation to both elbows. He states that he also has some numbness involving the right hand. The symptoms appear to occur primarily with exertion. Patient states that he was mowing his lawn last week when he experienced an episode of discomfort. He rested at that time but he states that the symptoms are present for up to an hour. He is not seem to have significant breathing difficulty. He did not report dizziness or lightheadedness. He had no symptoms of presyncope. This morning after wakening patient began to experience symptoms of chest pain as well. Again he was active around his house. He did report some improvement with slowing of activity. The symptoms appear to be present at the time of his evaluation in the emergency room. He cannot recall any specific intervention which resolved his symptoms. He has not had any recurrence of chest discomfort since being admitted to the hospital. In generally claims to be an active individual. He has been attempting to increase his activity recently. He does have some limitations with respect to bilateral hip discomfort but is able to walk extended distances without stopping by report. He cannot recall having had chest pain of this nature in the past. The patient did undergo percutaneous intervention involving his coronaries on 2 occasions previously. He did not report any symptoms of chest discomfort associated with those episodes. Allergies Allergy/AdvReac Type Severity Reaction Status Date / Time Sulfa (Sulfonamide Allergy Intermediate HIVES Verified 11/22/18 09:13 Antibiotics) pravastatin AdvReac Mild MUSCLE Verified 11/22/18 09:13 ACHES simvastatin AdvReac Mild MUSCLE Verified 11/22/18 09:13 ACHES Home Medications Home Medications Medication Instructions Recorded Confirmed Type azelastine 0.15 % (205.5 mcg) 2 sprays INTNAS HS 03/12/18 11/22/18 History nasal spray clopidogrel 75 mg tablet 75 mg PO HS 03/12/18 11/22/18 History coenzyme Q10 100 mg capsule 100 mg PO BID cap 03/12/18 11/22/18 History dutasteride 0.5 mg capsule 0.5 mg PO QDL 03/12/18 11/22/18 History fluticasone propionate 50 2 sprays INTNAS QAM 03/12/18 11/22/18 History mcg/actuation nasal spray,suspension metoprolol succinate ER 25 mg 25 mg PO QDL 03/12/18 11/22/18 History capsule sprinkle, ext. release 24 hr montelukast 10 mg tablet 10 mg PO HS 03/12/18 11/22/18 History nitroglycerin 0.3 mg sublingual 0.3 mg SL Q5M PRN 03/12/18 11/22/18 History tablet ranitidine 150 mg tablet 150 mg PO BID 03/12/18 11/22/18 History rosuvastatin 20 mg tablet 20 mg PO HS 03/12/18 11/22/18 History aspirin [Aspir-81] 81 mg PO QAM 07/19/18 11/22/18 History lisinopril-hydrochlorothiazide 1 tab PO QAM 07/19/18 11/22/18 History hydrocortisone 2.5 % topical cream 1 applic CO .USE DIRECTED. #1 gm 05/17/19 05/20/19 History with perineal applicator Patient History Medical History Other chronic sinusitis (Acute) Sciatica (Acute) Sacroiliitis (Acute) Retention of urine (Acute) Presence of stent in LAD coronary artery (Acute) Pre-diabetes (Acute) Polyneuropathy (Acute) Paresthesia of right arm (Acute) Obesity (Acute) Nephrolithiasis (Acute) Nasal polyps (Acute) Microscopic hematuria (Acute) Lumbar radiculopathy (Acute) Low back pain (Acute) Keloid scar (Acute) Inguinal hernia (Acute) Impaired fasting glucose (Acute) Hypertrophy of nasal turbinates (Acute) Hemorrhoids (Acute) Dyslipidemia (Acute) Chronic sinusitis, unspecified (Acute) Carotid artery plaque (Acute) Benign prostate hyperplasia (Acute) Benign localized hyperplasia of prostate with urinary obstruction (Acute) Benign colonic polyp (Acute) Anosmia (Acute) Allergic rhinitis (Acute) Actinic keratosis (Acute) Acquired deviated nasal septum (Acute) Encounter for pre-operative examination Chest pain (Acute) Chest pain (Acute) Dysuria (Acute) Pneumonia (Acute) Unstable angina (Acute 04/08/14) Vertigo (Acute) Constantine disease (Chronic) Cor athrscl-uns vessel (Chronic 08/22/12) Benign hypertension (Chronic 08/22/12) BPH w/o urinary obs/LUTS (Chronic 08/22/12) Encounter for pre-operative examination CAD (coronary artery disease) GERD (gastroesophageal reflux disease) Acute blood loss anemia Hypertension (Chronic) Arthritis (Chronic) PAD (peripheral artery disease) (Chronic) Chronically on Plavix Calculus of kidney (Resolved 08/22/12) BPH (benign prostatic hyperplasia) (Acute) CAD (coronary artery disease) GERD (gastroesophageal reflux disease) Hyperlipidemia Osteoarthritis Surgical History Percutaneous transluminal coronary angioplasty status (08/22/12) History of adenoidectomy History of inguinal herniorrhaphy History of umbilical hernia repair History of tonsillectomy H/O transurethral resection of prostate History of cardiac cath 2007 AND 2012 History of cataract surgery LEFT CATARACT History of colonoscopy History of esophagogastroduodenoscopy (EGD) History of heart artery stent 2007 AND 2012 (2 TOTAL STENTS) History of herniorrhaphy RT/LEFT INGUINAL History of tonsillectomy History of tooth extraction Nasal polyps REMOVED Family History Grandmother Family history of diabetes mellitus Father Coronary heart disease Mother Coronary heart disease Social History Preferred Language: Swedish Communication Ability: Effective Beliefs That Will Affect Care: None marital status: / Current Living Situation: Alone current occupational status: retired 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 Other Information That Helps Us Care for You: No Feels Safe at Home: Yes Safety Concerns: Feels Safe At This Time Smoking Status: Former smoker Tobacco Type: cigarettes packs per day: 1 Years Smoked: 20 Smoking End Date: 2004 Number of Years Since Quit: 14 Second Hand Exposure: No Hx Alcohol Use: Yes Hx Substance Use: No Review of Systems Review of Systems: All systems reviewed & are unremarkable except as noted in HPI & below He has not report any change in his bowel or bladder habits currently. Appears to be eating well. He denies any sense of palpitation. He denies any swelling of lower extremities. Physical Exam Physical Exam: The patient is alert and oriented. Mood and affect appeared normal. He answered all questions appropriately. HEENT: Pupils are equal and reactive to light and accommodation. Extraocular movements are intact. The sclerae are anicteric. Neuro: Cranial nerves intact Neck: Patient's neck is supple. He has palpable carotid pulses bilaterally without bruits on auscultation. There is no evidence of jugular venous distention. The thyroid is not enlarged. Lungs: Clear to auscultation bilaterally. He has good air movement without use of accessory muscles. No rales wheezes or rhonchi. Cardiac: Heart demonstrates a regular rate and rhythm. Normal S1 and S2. No murmurs on examination. Pulses: The patient has palpable radial pulses bilaterally that are equal in intensity. He has a palpable posterior tibial pulse on the right but not the left leg Extremities: There was no evidence of hypoperfusion. There is no cyanosis or clubbing. There is no edema. Skin: I did not appreciate any rashes on examination today. He has a well- healed scar on the right forearm Results & Data Vital Signs (Past 12 Hours) Vital Signs Temp Pulse Pulse Resp BP BP BP 11/22/18 14:57 36.7 C 55 L 20 154/84 H 11/22/18 13:04 62 150/81 H 11/22/18 12:11 36.5 C 20 92/61 L 11/22/18 11:43 36.8 C 61 18 178/99 H 11/22/18 10:01 57 L 16 161/79 H 11/22/18 09:03 57 L 16 161/79 H 11/22/18 08:32 55 L 16 142/80 H 11/22/18 07:30 36.7 C 70 19 185/86 H Pulse Ox 11/22/18 14:57 96 11/22/18 13:04 11/22/18 12:11 96 11/22/18 11:43 96 11/22/18 10:01 96 11/22/18 09:03 96 11/22/18 08:32 96 11/22/18 07:30 96 Laboratory Results Abnormal Lab Results 11/22/18 11/22/18 11/22/18 07:24 07:24 07:25 WBC 5.80 RBC 5.03 Hgb 13.8 L Hct 41.4 L MCV 82.3 MCH 27.4 MCHC 33.3 RDW Std Deviation 44.3 RDW Coeff of Rogelio 14.8 H Plt Count 175 MPV 9.4 Immature Gran % (Auto) 0.3 Neut % (Auto) 68.2 Lymph % (Auto) 17.2 [place] % (Auto) 11.6 Eos % (Auto) 2.4 Baso % (Auto) 0.3 Immature Gran # (Auto) 0.02 Neut # (Auto) 3.95 Lymph # (Auto) 1.00 L [place] # (Auto) 0.67 H Eos # (Auto) 0.14 Baso # (Auto) 0.02 PT 10.8 INR 1.1 Sodium 143 Potassium 4.1 Chloride 110 H Carbon Dioxide 26 Anion Gap 7.0 BUN 13 Creatinine 0.98 Est Cr Clr Drug Dosing 80.5 Est GFR ( Amer) 87.1 Est GFR (Non-Af Amer) 75.1 BUN/Creatinine Ratio 13.3 Glucose 122 H Calcium 8.1 L Total Bilirubin 0.4 AST 17 ALT 28 Alkaline Phosphatase 79 Troponin I < 0.015 Total Protein 6.4 Albumin 3.2 L Globulin 3.2 Albumin/Globulin Ratio 1.0 Lipase 162 11/22/18 12:11 WBC RBC Hgb Hct MCV MCH MCHC RDW Std Deviation RDW Coeff of Rogelio Plt Count MPV Immature Gran % (Auto) Neut % (Auto) Lymph % (Auto) [place] % (Auto) Eos % (Auto) Baso % (Auto) Immature Gran # (Auto) Neut # (Auto) Lymph # (Auto) [place] # (Auto) Eos # (Auto) Baso # (Auto) PT INR Sodium Potassium Chloride Carbon Dioxide Anion Gap BUN Creatinine Est Cr Clr Drug Dosing Est GFR ( Amer) Est GFR (Non-Af Amer) BUN/Creatinine Ratio Glucose Calcium Total Bilirubin AST ALT Alkaline Phosphatase Troponin I < 0.015 Total Protein Albumin Globulin Albumin/Globulin Ratio Lipase Diagnostic Findings Chest x-ray obtained at the time of admission not reveal any acute cardiopulmonary process Dobutamine echocardiogram performed 2015 did not reveal any evidence of inducible ischemia ECG Additional Comments: EKG obtained the time admission revealed normal sinus rhythm with frequent PACs. No significant ST or T-wave changes
[2018-11-22] MEDS: HEPARIN SOD 5,000 UNIT/0.5 ML VIAL SQ SCH (20:59)
[2018-11-22] MEDS ORDERED: CLOPIDOGREL BISULFATE 75 MG TAB PO SCH (21:00)
[2018-11-22] MEDS ORDERED: ROSUVASTATIN CALCIUM 20 MG TAB PO SCH (21:00)
[2018-11-23] MEDS: ACETAMINOPHEN 325 MG TAB PO PRN ×2 (03:49→15:08)
[2018-11-23] MEDS: HEPARIN SOD 5,000 UNIT/0.5 ML VIAL SQ SCH ×2 (06:04→14:19)
[2018-11-23 07:09] LABS: Hemoglobin 13.3 g/dL (14.0-18.0); Mean Corpuscular Hgb Conc 33.3 g/dL (32-36); Mean Corpuscular Volume 81.6 fL (80-100); Mean Platelet Volume 9.5 fL (7.4-10.4); Platelet Count 161 K/uL (130-400); RDW Standard Deviation 44.4 fL (36.4-46.3); White Blood Count 6.06 K/uL (4.8-10.8)
[2018-11-23 07:43] LABS: BUN Creatinine Ratio 15.2 (10-20); Creatinine Clr Calc Pharmacy 85.8 ml/min; Est GFR (African American) 95.2; Est GFR (Non-African American) 82.2; Magnesium 2.1 mg/dl (1.8-2.4)
[2018-11-23] MEDS: LISINOPRIL/HCTZ 10/12.5MG TAB PO SCH (08:28)
[2018-11-23] MEDS ORDERED: ATROPINE SULFATE 0.1 MG/ML 10ML SYR IV ONE (08:30)
[2018-11-23] MEDS ORDERED: DOBUTamine HCL 12.5 MG/ML 20 ML VIAL IV ONE (08:30)
[2018-11-23] MEDS ORDERED: METOPROLOL TARTRATE 1 MG/ML VIAL IV ONE (08:30)
[2018-11-23] MEDS ORDERED: PERFLUTREN LIPID MICROSPHERE (DEFINITY) IV ONE (09:56)
[2018-11-23] MEDS: ASPIRIN 81 MG ECTAB PO SCH (11:15)
[2018-11-23] MEDS: POLYETHYLENE (MIRALAX) 17 GM PACK PO SCH (11:15)
[2018-11-23] MEDS: METOPROLOL SUCC 25MG EXT REL TAB PO SCH (11:16)
--- NOTE | 2018-11-23 11:33 | Cardiology Progress Note ---
Date of Service November 23, 2018 Assessment & Plan (1) Chest pain: His history is somewhat inconsistent, but he does appear to have some exertional component to his symptoms. He did have some symptoms associated with dobutamine infusion although he could not tell me if this was similar to his p resenting chest discomfort. However, the images do not support significant obstructive cardiovascular disease. He could have some smaller vessel disease that produces angina but no notable wall motion abnormalities on his study. I think an empiric trial of nitrates would be reasonable as an outpatient. He should continue on the remainder of his medical regimen including his every other day Plavix. (2) Coronary artery disease: Continue aggressive secondary prevention. Addition of nitrates as noted above. Subjective This morning the patient did not report additional episodes of chest pain overnight or since being in the hospital. However he did have some symptoms associated with the dobutamine infusion during his stress testing. Review of Systems Review of Systems: Per HPI Physical Exam Physical Exam: The patient is alert and oriented. Mood and affect appeared normal. He answered all questions appropriately. HEENT: Pupils are equal and reactive to light and accommodation. Extraocular movements are intact. The sclerae are anicteric. Neuro: Cranial nerves intact Lungs: Clear to auscultation bilaterally. He has good air movement without use of accessory muscles. No rales wheezes or rhonchi. Cardiac: Heart demonstrates a regular rate and rhythm. Normal S1 and S2. No murmurs on examination. Pulses: The patient has palpable radial pulses bilaterally that are equal in intensity Extremities: There was no evidence of hypoperfusion. There is no cyanosis or clubbing. Skin: I did not appreciate any rashes on examination today. Results & Data Vital Signs (Past 12 Hours) Vital Signs Temp Pulse Pulse Resp BP BP Pulse Ox 11/23/18 11:25 36.8 C 57 L 18 162/79 H 96 11/23/18 07:31 53 L 11/23/18 07:00 36.6 C 66 18 168/98 H 95 11/23/18 03:30 36.8 C 67 16 142/80 H 97 11/23/18 01:28 61 Laboratory Results Abnormal Lab Results 11/22/18 11/22/18 11/22/18 07:25 12:11 18:11 WBC RBC Hgb Hct MCV MCH MCHC RDW Std Deviation RDW Coeff of Rogelio Plt Count MPV PT 10.8 INR 1.1 Sodium Potassium Chloride Carbon Dioxide Anion Gap BUN Creatinine Est Cr Clr Drug Dosing Est GFR ( Amer) Est GFR (Non-Af Amer) BUN/Creatinine Ratio Glucose Calcium Magnesium Troponin I < 0.015 < 0.015 11/23/18 11/23/18 11/23/18 00:14 06:49 06:49 WBC 6.06 RBC 4.90 Hgb 13.3 L Hct 40.0 L MCV 81.6 MCH 27.1 MCHC 33.3 RDW Std Deviation 44.4 RDW Coeff of Rogelio 15.0 H Plt Count 161 MPV 9.5 PT INR Sodium 140 Potassium 4.0 Chloride 109 H Carbon Dioxide 27 Anion Gap 4.0 BUN 14 Creatinine 0.91 Est Cr Clr Drug Dosing 85.8 Est GFR ( Amer) 95.2 Est GFR (Non-Af Amer) 82.2 BUN/Creatinine Ratio 15.2 Glucose 101 H Calcium 8.0 L Magnesium 2.1 Troponin I < 0.015 Diagnostic Findings Dobutamine echocardiogram today did not demonstrate any evidence of inducible ischemia
[2018-11-23] MEDS ORDERED: ISOSORBIDE MONO EXTENDED REL 30 MG TABCR PO SCH (12:15)
--- NOTE | 2018-11-23 12:39 | Discharge Summary ---
Date of Service November 23, 2018 Admission HPI Per Admitting Provider Mr. Bee is a 73 year old male with past medical history of coronary artery disease status post placement of 2 stents, HTN, HLD, PAD, BPH, GERD, osteoarthritis who presented with acute chest pain. Pt. has had intermittent chest pain over the last 2-3 weeks. He states chest pain develops with exertion and lasts for up to 1 hour. Denies chest pain at rest prior to admission with exception of this morning. Has radiation of pain to jaw over last few weeks as well during acute episodes; denies nausea/vomiting, SOB at home. He developed dizziness last evening with standing. Pt. felt like he was "staggering" due to symptoms. He woke up this morning around 5:30 am and had sternal chest pain. Pain was rated as a 2/10 on pain scale. Had pain in both elbows, otherwise denied radiation of pain to jaw, neck or arms. Chest pain was ongoing for ~1 hour, is now completely resolved. Denies shortness of breath, LE edema, nausea or vomiting, abd pain, fever/chills, diarrhea or constipation (takes Miralax daily), dysuria or hematuria, recurrent rectal bleeding or melena. Most recent cardiac cath was in 2012; he follows with Dr. Seals and was recently evaluated as outpatient. Pt. was instructed to take Plavix every other day. He does have h/o PAD, was evaluated by Dr. Maurice but surgical intervention was not indicated. He has occasional claudication but denies persistent, severe LLE pain in setting of stenosis. He did take morning meds at home, including Aspirin 81 mg. Has not received Nitroglycerin tablets for chest pain. EKG was similar to prior studies; Troponin was negative. Will admit to observation status for cardiac monitoring and cardiology consult. Admission Exam Per Admitting Provider General: Resting comfortably in no apparent distress HEENT: NC/AT; PERRLA with EOMI; Forman conjunctiva, MMM. No erythema of posterior pharynx Neck: Supple and nontender Cardiac: RRR Lungs: CTA bilaterally Abdomen: Bowel normoactive X 4; Nontender to palpation Rectal: Deferred : Deferred Back: No tenderness Extremities: Warm. No edema present Neuro: No focal weakness Skin: No rash Principal Diagnosis Chest Pain Discharge Exam General: Resting comfortably in no apparent distress HEENT: NC/AT; PERRLA with EOMI; Forman conjunctiva, MMM. No erythema of posterior pharynx Neck: Supple and nontender Cardiac: RRR Lungs: CTA bilaterally Abdomen: Bowel normoactive X 4; Nontender to palpation Extremities: Warm. No edema present Neuro: No focal weakness Skin: No rash Discharge Data Allergies Allergy/AdvReac Type Severity Reaction Status Date / Time Sulfa (Sulfonamide Allergy Intermediate HIVES Verified 11/22/18 09:13 Antibiotics) pravastatin AdvReac Mild MUSCLE Verified 11/22/18 09:13 ACHES simvastatin AdvReac Mild MUSCLE Verified 11/22/18 09:13 ACHES Consultations 11/22/18 08:17 ED Decision to Admit Stat 11/22/18 10:57 Consult Cardiology Routine Ordered Studies CXR 11/22/18 dobutamine stress echocardiogram - no evidence of inducible ischemia. Hospital Course (1) Chest pain: Presented with sternal chest pain on 11/22/18; had intermittent episodes of chest pain with exertion at home for 2-3 weeks. EKG was similar to prior studies. Serial troponin levels were negative. Cardiology consulted, follows with Dr. Seals. Dobutamine stress echo was negative on 11/23/18. Continued home beta miguelangel, statin, aspirin and plavix as prescribed. Added Imdur 30 mg daily prior to discharge. Chest pain had resolved by time of discharge, no further episodes. Pt. reported that chest pain may be related to stress/anxiety in setting of loss of recent loved ones (his and son). Will need to f/u with cardiology in 1-2 weeks. (2) Coronary artery disease: Status post cardiac cath in 2007 and 2012 -- has had 2 stents placed during procedures. Follows with Dr. Seals. Continued statin, aspirin, plavix, beta miguelangel as prescribed. Imdur 30 mg daily was added. (3) Benign prostate hyperplasia: Continued Dutasteride as prescribed. (4) GERD (gastroesophageal reflux disease): Continued Ranitidine as prescribed. (5) Benign hypertension: Continued Metoprolol and HCTZ/Lisinopril as prescribed. (6) PAD (peripheral artery disease): Has been evaluated by Dr. Maurice, no surgical intervention indicated. Continued plavix, aspirin and statin as prescribed. (7) HLD (hyperlipidemia): Continued statin as prescribed. (8) Hemorrhoids: Admitted in Jul 2018 for rectal bleeding, was likely related to he morrhoids. Continued Miralax daily to prevent constipation. (9) Allergic rhinitis: Held home Flonase and Singulair, resume at discharge. (10) History of cataract: S/p surgical intervention in past. Does not currently use eye drops. (11) DVT prophylaxis: Heparin q8hr. Stable for discharge to home on 11/23/18. Will need to f/u with PCP in 1-2 weeks. Total Time Total Time Spent Total Time Spent (In Minutes): >30 minutes Total Time Includes: Examination of the Patient, Discharge Planning, Medication Reconciliation, Communication With Other Providers and Other Discharge Plan Discharge Items Patient Disposition: Home - Self-Care Reason For Visit: CHEST PAIN Discharge Diagnosis: Chest Pain Condition: Good Discharge Goals: Decrease discomfort, Improve disease control, Improve function, Increase independence, Improve nutritional status and Prevent disease Activity: As commented below Exercise/Sports: Gradually increase as tolerated Non-emergency contact: Primary Care Provider and Parachute Panel Joiner Call non-emergency contact if: you have any medication questions, your symptoms worsen, your pain is not controlled, your pain is worsening, your pain is unusual for you, your pain is concerning for you and you have a fever Follow-up/Referrals: Prasad Seals MD [Physician] - 12/07/18 1:30 pm (Please, follow up at [facility] Cardiology Office with Dr. Seals on ThursdayDecember 07 at 1:30 pm. *If you need to change this appointment, call the office at [phone].) Alton Mendoza MD [Primary Care Provider] - 11/25/18 2:00 pm (Please, follow up at Dr. Mendoza's office with his associate, Krys SIMMONS, on November 25 at 2:00 pm. *If you need to change this appointment, call their office at [phone].) Diet: Heart Healthy Pending Sale To [facility] Provider Instructions: 1. Chest Pain * Dobutamine stress echocardiogram was negative during this admission. * Please continue Metoprolol, Aspirin, Rosuvastatin as prescribed. * Please take Plavix every other day due to history of GI bleeding. * Imdur 30 mg daily has been started -- take this medication every morning morning starting 11/24/18. Prescription for medication was sent to [facility] in [place], [place]. * Please take Nitroglycerin 0.4 mg every 5 minutes for acute chest pain. * An appointment will be scheduled with cardiology in 1-2 weeks. * Please schedule an appointment with your primary care provider in 1-2 weeks. Prescriptions: New isosorbide mononitrate 30 mg Tablet Extended Release 24 Hr 30 mg PO QAM 30 Days Qty: 30 RF: 1 nitroglycerin 0.4 mg tablet, sublingual 0.4 mg sublingual Q5M Qty: 10 RF: 0 Continued ranitidine HCl [Zantac] 150 mg tablet 150 mg PO BID RF: 0 montelukast [Singulair] 10 mg tablet 10 mg PO HS RF: 0 fluticasone propionate 50 mcg/actuation spray,suspension 2 sprays INTNAS QAM RF: 0 coenzyme Q10 100 mg capsule 100 mg PO BID RF: 0 dutasteride [Avodart] 0.5 mg capsule 0.5 mg PO QDL RF: 0 rosuvastatin [Crestor] 20 mg tablet 20 mg PO HS RF: 0 azelastine 0.15 % (205.5 mcg) spray,non-aerosol 2 sprays INTNAS HS RF: 0 metoprolol succinate 25 mg capsule,sprinkle,ER 24hr 25 mg PO QDL RF: 0 hydrocortisone 2.5 % cream with perineal applicator 1 applic ME .USE DIRECTED. Qty: 1 RF: 0 aspirin [Aspir-81] 81 mg Tablet,Delayed Release (Dr/Ec) 81 mg PO QAM RF: 0 lisinopril-hydrochlorothiazide 10-12.5 mg tablet 1 tab PO QAM RF: 0 Changed clopidogrel [Plavix] 75 mg tablet 75 mg PO Q48H Qty: 0 RF: 0 Discontinued nitroglycerin [Nitrostat] 0.3 mg tablet, sublingual 0.3 mg SL Q5M PRN (Reason: CHEST PAIN) RF: 0 Stand-Alone Forms: Call Back Authorization, [facility] Discharge Orders: Discharge Order (Routine); Ordered 11/23/18 Ordered By: Jennifer Escalera Admission Data Admit Date/Time: 11/22/18 09:18 Attending Provider: Derrell Chauhan Admit Provider: Jennifer Escalera Primary Care Provider: Alton Mendoza Other Providers: Bettina Devlin ; Alton Donnelly Service: Medical Other Interventions: Discharge Summary Assessment (RN) Last Done: 11/23/18 13:52 Pending Studies at Discharge: No DC Date/Time DO NOT enter until pt leaves facility: 11/23/18 15:16 Supervising Physician Co-Signing Physician Notes Attending Attestation & Discharge Note: Pt seen/examined, chart reviewed, discharge care plan d/w PA Jennifer Escalera. I agree w/ the ward components of her discharge summary. 73yo male with known CAD who presented with several intermittent episodes of chest pain. Troponin x 3 were negative. Telemetry w/o dysrhythmia. Did not have recurrent symptoms while here. Underwent dobutamine stress echo - negative for inducible ischemia. Symptoms unlikely musculoskeletal. Could not rule out GI or psych (anxiety) playing a role but much less likely. Cardiology was consulted; recommended daily imdur. He was counseled that even despite the negative stress test that if he continued with chest pain episodes he would likely need more invasive testing (cardiac cath). Discharge exam: gen - NAD; tearful talking about and son neck - no JVD heart - RRR, s1 s2, no murmur lungs - CTA b/l chest - no reproducible chest wall pain to palpation abd - soft NT ND BS+ ext - no edema Derrell Chauhan MD
[2018-11-24] MEDS ORDERED: CLOPIDOGREL BISULFATE 75 MG TAB PO SCH (21:00)
== END 2018-11-23 15:16 | disposition home or self-care (01) ==
LOC: ED 07:12 → 2N 07:12

== ENCOUNTER 2019-03-08 13:44 | Inpatient (IN) ==
[2019-03-08] MEDS ORDERED: ASPIRIN CHEW 324 MG PO STA (13:56)
[2019-03-08] MEDS ORDERED: fentaNYL citrate 100 MCG/2 ML VIAL ONE (14:06)
[2019-03-08] MEDS ORDERED: HEPARIN (PORCINE) 1000 UNIT/ML 10 ML (CATH LAB USE ONLY) ONE (14:06)
[2019-03-08] MEDS ORDERED: MIDAZOLAM HCL 1 MG/ML 2ML VIAL ONE (14:06)
[2019-03-08] MEDS ORDERED: NiCARDipine HCL INJ 2.5 MG/ML 10 ML AMP ONE (14:06)
[2019-03-08] MEDS ORDERED: NITROGLYCERIN/D5W 100MCG/ML 20ML SYR ONE (14:07)
[2019-03-08 14:30] LABS: Partial Thromboplastin Time 26.6 Seconds (21.0-31.0); Prothrombin Time 10.4 Seconds (9.0-12.0)
--- NOTE | 2019-03-08 14:32 | Cardiology Consultation ---
Date of Consultation March 08, 2019 Assessment & Plan (1) NSTEMI (non-ST elevated myocardial infarction): Presentation consistent with ACS and in the setting of ongoing chest pain agree with proceeding with cardiac catheterization. No apparent contraindications to procedure. Discussed risks, benefits, alternatives of procedure with patient and they are willing to proceed. Further recommendations pending findings of coronary angiography. History of Present Illness Attending Physician: Isaac Larose MD History of Present Illness 73-year-old man here with acute chest pain, EKG changes and mildly elevated troponin consistent with ACS. Patient seen emergently in the ED after heart alert activated in the setting of ongoing chest pain. Past cardiac history remarkable for coronary artery disease post bare-metal stent to his LAD in 2007 and drug-eluting stent to distal RCA in 2013. His primary mechanical inspector is Dr Seals. He was previously hospitalized in November 2018 with chest pain and at that time underwent a stress test which was negative for ischemia. Other medical issues include hypertension, type 2 diabetes, GERD, dyslipidemia, BPH and prior hemorrhoidal bleeding. Currently taking Plavix every other day. Chest pain began approximately 1130 today while walking out from his urology visit. Pain is persisted since that time, now 2-3 out of 10. Pain different than what he experienced in November. EKG showed subtle anterior ST depressions. Initial troponin positive at 0.16. Allergies Allergy/AdvReac Type Severity Reaction Status Date / Time Sulfa (Sulfonamide Allergy Intermediate HIVES Verified 03/10/19 10:16 Antibiotics) pravastatin AdvReac Mild MUSCLE Verified 03/10/19 10:16 ACHES simvastatin AdvReac Mild MUSCLE Verified 03/10/19 10:16 ACHES Patient History Medical History BRBPR (bright red blood per rectum) (Acute) Dizziness (Acute) Gross hematuria (Acute) Hypertrophic scar (Acute) Personal history of tobacco use (Acute) Other chronic sinusitis (Acute) Sciatica (Acute) Sacroiliitis (Acute) Retention of urine (Acute) Presence of stent in LAD coronary artery (Acute) Pre-diabetes (Acute) Polyneuropathy (Acute) Paresthesia of right arm (Acute) Obesity (Acute) Nephrolithiasis (Acute) Nasal polyps (Acute) Microscopic hematuria (Acute) Lumbar radiculopathy (Chronic) Low back pain (Chronic) Keloid scar (Acute) Inguinal hernia (Acute) Impaired fasting glucose (Acute) Hypertrophy of nasal turbinates (Acute) Hemorrhoids (Acute) Dyslipidemia (Acute) Chronic sinusitis, unspecified (Acute) Carotid artery plaque (Chronic) Benign prostate hyperplasia (Acute) Benign localized hyperplasia of prostate with urinary obstruction (Acute) Benign colonic polyp (Acute) Anosmia (Acute) Allergic rhinitis (Acute) Actinic keratosis (Acute) Acquired deviated nasal septum (Acute) Encounter for pre-operative examination Chest pain (Acute) Chest pain (Acute) Dysuria (Acute) Pneumonia (Acute) Unstable angina (Acute 04/08/14) Vertigo (Acute) Constantine disease (Chronic) Cor athrscl-uns vessel (Chronic 08/22/12) Benign hypertension (Chronic 08/22/12) BPH w/o urinary obs/LUTS (Chronic 08/22/12) Encounter for pre-operative examination CAD (coronary artery disease) GERD (gastroesophageal reflux disease) (Chronic) Acute blood loss anemia Hypertension (Chronic) Arthritis (Chronic) PAD (peripheral artery disease) (Chronic) Chronically on Plavix Calculus of kidney (Resolved 08/22/12) BPH (benign prostatic hyperplasia) (Acute) CAD (coronary artery disease) GERD (gastroesophageal reflux disease) Hyperlipidemia Osteoarthritis Surgical History S/P right coronary artery (RCA) stent placement (Acute) Percutaneous transluminal coronary angioplasty status (08/22/12) History of adenoidectomy History of inguinal herniorrhaphy History of umbilical hernia repair History of tonsillectomy H/O transurethral resection of prostate History of cardiac cath 2007 AND 2012 History of cataract surgery LEFT CATARACT History of colonoscopy History of esophagogastroduodenoscopy (EGD) History of heart artery stent 2007 AND 2012 (2 TOTAL STENTS) History of herniorrhaphy RT/LEFT INGUINAL History of tonsillectomy History of tooth extraction Nasal polyps REMOVED Family History Grandmother Family history of diabetes mellitus Father Coronary heart disease Mother Coronary heart disease Social History Preferred Language: Tongan Communication Ability: Effective Clearing Inspector Required: No Beliefs That Will Affect Care: None marital status: / Current Living Situation: Alone current occupational status: retired 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 Feels Safe at Home: Yes Smoking Status: Former smoker Tobacco Type: cigarettes ; packs per day: 1 ; Cigarettes Per Day: 40 ; Second Hand Exposure: No ; Hx Alcohol Use: No Hx Substance Use: No caffeine: No Seatbelt Use: always Results & Data Vital Signs (Past 12 Hours) Vital Signs Temp Pulse Resp BP Pulse Ox 03/08/19 13:48 97.9 F 88 16 153/79 H 96 PG Care Time/CCT Total # of Minutes Spent Total Time Spent with Patient: Total time spent is greater than 50% in coordination of care (as documented) at patient's floor/unit and/or counseling patient:
[2019-03-08 14:36] LABS: Albumin Level 3.9 gm/dl (3.4-5.0); BUN Creatinine Ratio 16.9 (10-20); Calcium 9.2 mg/dl (8.5-10.1); Creatinine Clr Calc Pharmacy 73.5 ml/min; Est GFR (African American) 78.3; Est GFR (Non-African American) 67.5; Potassium 4.2 mmol/L (3.5-5.1)
[2019-03-08 14:39] LABS: Albumin Globulin Ratio 1.1 (0.9-2); Bilirubin,Total 0.6 mg/dl (0.2-1); Creatine Kinase MB 9.1 ng/ml (0.5-3.6); Globulin 3.7 gm/dl (2.5-4.0); Total Protein 7.6 gm/dl (6.4-8.2)
[2019-03-08 14:41] LABS: Basophils # (auto) 0.03 K/uL (0-0.2); Basophils % (auto) 0.4 %; Eosinophils % (auto) 1.2 %; Hematocrit (blood only) 45.7 % (42-52); Hemoglobin 15.9 g/dL (14.0-18.0); Immature Granulocytes # (auto) 0.05 K/uL (0.00-0.02); Immature Granulocytes % (auto) 0.6 %; Mean Corpuscular Hemoglobin 30.2 pg (25-34); Mean Corpuscular Hgb Conc 34.8 g/dL (32-36); Mean Corpuscular Volume 86.7 fL (80-100); Mean Platelet Volume 9.9 fL (7.4-10.4); Monocytes # (auto) 0.75 K/uL (0.11-0.59); Monocytes % (auto) 8.9 %; Neutrophils # (auto) 6.42 K/uL (1.4-6.5); Neutrophils % (auto) 75.9 %; Platelet Count 181 K/uL (130-400); RDW Coefficient of Variation 14.2 % (11.5-14.5); RDW Standard Deviation 44.9 fL (36.4-46.3); Red Blood Count 5.27 M/uL (4.7-6.1); White Blood Count 8.45 K/uL (4.8-10.8)
[2019-03-08] MEDS ORDERED: ADENOSINE IV SOLN 3 MG/ML 20 ML VIAL IV ONE (14:48)
[2019-03-08] MEDS ORDERED: CLOPIDOGREL BISULFATE 300 MG TAB ONE (15:29)
--- NOTE | 2019-03-08 15:32 | Pre Anesthesia Assessment ---
Date of Service March 08, 2019 Pre Sedation Assessment Vital Signs Temp Pulse Resp BP Pulse Ox 03/08/19 13:48 97.9 F 88 16 153/79 H 96 Cardiovascular RRR, no murmur, no edema Respiratory normal respiratory effort, lungs clear to auscultation Pre-Sedation Airway Assessment Smoking Status: Former smoker Hx Sleep Apnea: No Hx Difficult Intubation: No Short, Thick Neck: No Thyromental Distance: > or= 3.5 Finger Breadths Oral Cavity: + WNL Mallampati Class: III Procedure Planning Contraindications for Sedation: none Current Medications Reviewed: Yes Notes The planned sedation has been discussed with the patient. Informed Consent was obtained. I have identified the patient, determined the appropriateness of sedation and have assessed the patient immediately prior to the procedure. All medicine(s) and interventions are by my order.
--- NOTE | 2019-03-08 15:32 | Post Anesthesia Assessment ---
Date of Service March 08, 2019 Post Sedation Assessment Vital Signs Temp Pulse Resp BP Pulse Ox 03/08/19 13:48 97.9 F 88 16 153/79 H 96 Recovery Score Activity: Moves 4 extremities Respiration: Deep Breath/Cough Circulation: +/-20% PreAnes Value Consciousness: Fully Awake Oxygen Saturation: O2 needed for >90% Discharge Sedation Level of Care: Fast Track Phase II Post Sedation Plan On clinical assessment, the patient appears to have tolerated the sedation without complications. Patient is recovering as anticipated. Patient will continue to be monitored by nursing and may be discharged when sedation discharge criteria are met per below protocol. Upon Completions of procedure and additional 15 minutes continue every 5 minute vital signs and the P.A.R. score; then discharge to a Phase I or Fast Track to Phase II per the following guidelines: * Discharge Patient to appropriate Phase II area if PAR is 8 or greater or return to pre- procedure baseline. The post - procedure orders will be as directed. * If PAR score is less than 8 or not return to pre-procedure baseline then patient will follow Phase I monitoring till PAR is reached for Phase II. The Phase I may be done in procedure room or may call to secure a Phase I area. * If naloxone or flumazenil are used for reversal, hold in Phase I for continued monitoring from when last reversal dose was given for a minimum of 60 minutes or longer pending the nurse and/or physician discretion of patient condition before discharge to Phase II. Please call the Sedation Physician to re-evaluate and complete post-note for discharge to Phase II area. Do NOT discharge from procedure sedation or Phase 1 until post- sedation evaluation note is complete by procedure /sedation MD Sedation Discharge Instructions to be given to the patient at discharge to home.
[2019-03-08] MEDS ORDERED: ACETAMINOPHEN 325 MG TAB PO PRN (15:36)
[2019-03-08] MEDS ORDERED: ONDANSETRON INJ 2 MG/ML 2 ML VIAL IV PRN (15:36)
--- NOTE | 2019-03-08 15:36 | Post Operative Brief Note ---
Cardiology Brief Post Op Date of Surgery March 08, 2019 Pre & Post Diagnosis Operation Date: 03/08/19 14:15 <No data on this case meets the specified criteria> Procedure -- Cost And Sales Record Supervisor Isaac Larose MD [employer] Diaz Estimated Blood Loss 15 Findings Consistent with Post-Op Diagnosis Patent proximal LAD stent Patent distal RCA stent Moderate to severe disease in small distal circumflex (unchanged from prior) 70% mid LAD at bifurcation with 2nd diagonal 50-60% late-mid LAD stenosis FFR of LAD 0.74 Successful PCI of early-mid LAD and late-mid LAD with 2 drug-eluting stents (non-overlapping 3.0 x 15, 3.0 x 15 Marco). Disposition Disposition: U
[2019-03-08] MEDS ORDERED: GLUCAGON FOR INJ 1 MG VIAL SQ PRN (15:40)
[2019-03-08] MEDS ORDERED: GLUCOSE 10 TABS/TUBE PO PRN (15:40)
[2019-03-08] MEDS ORDERED: DEXTROSE 50% 50 ML SYRINGE IV PRN (15:40)
[2019-03-08] MEDS ORDERED: GLUCOSE 40% GEL 15 GM TUBE PO PRN (15:40)
[2019-03-08] MEDS ORDERED: CARBOHYDRATES FOR HYPOGLYCEMIA PO PRN (15:40)
[2019-03-08] MEDS ORDERED: SODIUM CHLORIDE 0.9% 1000ML 1,000 ML IV SCH (15:45)
--- NOTE | 2019-03-08 16:24 | Emergency Department Note ---
Entered by Fred Garcia acting as a scribe for History of Present Illness General Chief complaint: Chest Pain Stated complaint: PAIN IN CENTER OF CHEST INTO NECK Source: patient History of Present Illness Onset (ago): hour(s) (2.5) Location: chest Pain Consistency: + constant Maximum Pain Intensity: 6 Current Pain Intensity: 6 Associated symptoms: + other (jaw pain) The patient is a 73 y/o male who presents to the ED w/ CC of constant pain in the center of his chest beginning 2.5 hours ago. He currently rates his discomfort a 6/10 in severity. The patient states he was driving home from his urologist appointment when his symptoms started, and they radiate into his jaw. He reports he was being evaluated for an enlarged prostate. The patient notes a history of a heart catheterization, stress tests, and 2 stent placements. He states he took an aspirin today. The patient reports his last catheterization was by Dr. Quintero, Cardiology 5-6 years ago. He notes he has been slightly more tired the past few weeks, but nothing too concerning. The patient denies a history of an [place], tobacco use, and alcohol use. Home Medications Home Medications Medication Instructions Recorded Confirmed Type azelastine 0.15 % (205.5 mcg) 2 sprays INTNAS 03/12/18 03/08/19 History nasal spray coenzyme Q10 100 mg capsule 100 mg PO BID cap 03/12/18 03/08/19 History fluticasone propionate 50 2 sprays INTNAS QA 03/12/18 03/08/19 History mcg/actuation nasal spray,suspension montelukast 10 mg tablet 10 mg PO 03/12/18 03/08/19 History ranitidine 150 mg tablet 150 mg PO BID 03/12/18 03/08/19 History rosuvastatin 20 mg tablet 20 mg PO 03/12/18 03/08/19 History aspirin [Aspir-81] 81 mg PO QAM 07/19/18 03/08/19 History lisinopril-hydrochlorothiazide 1 tab PO QAM 07/19/18 03/08/19 History hydrocortisone 2.5 % topical cream 1 applic [place] .USE DIRECTED. #1 gm 11/19/18 03/08/19 History with perineal applicator clopidogrel 75 mg tablet 75 mg PO .COMPLEX tab 12/22/18 03/08/19 History isosorbide mononitrate ER 30 mg 30 mg PO QAM #30 tab 12/22/18 03/08/19 Rx tablet,extended release 24 hr metoprolol succinate ER 25 mg 25 mg PO DAILY ea 12/22/18 03/08/19 History capsule sprinkle, ext. release 24 hr nitroglycerin 0.4 mg sublingual 0.4 mg SUBLINGUAL .COMPLEX tab 12/22/18 03/08/19 History tablet OneTouch Ultra Blue Test Strip #50 ea NS 12/23/18 03/08/19 Rx OneTouch Ultra2 Meter kit #1 ea NS 12/23/18 03/08/19 Rx OneTouch UltraSoft Lancets #100 ea NS 12/23/18 03/08/19 Rx metformin 500 mg tablet 500 mg PO DAILY tab 12/23/18 03/08/19 History dutasteride 0.5 mg capsule 0.5 mg PO DAILY #90 cap 03/08/19 03/08/19 Rx Allergies Allergy/AdvReac Type Severity Reaction Status Date / Time Sulfa (Sulfonamide Allergy Intermediate HIVES Verified 03/08/19 09:02 Antibiotics) pravastatin AdvReac Mild MUSCLE Verified 03/08/19 09:02 ACHES simvastatin AdvReac Mild MUSCLE Verified 03/08/19 09:02 ACHES Past Med/Surg History Medical History BRBPR (bright red blood per rectum) (Acute) Dizziness (Acute) Gross hematuria (Acute) Hypertrophic scar (Acute) Personal history of tobacco use (Acute) Other chronic sinusitis (Acute) Sciatica (Acute) Sacroiliitis (Acute) Retention of urine (Acute) Presence of stent in LAD coronary artery (Acute) Pre-diabetes (Acute) Polyneuropathy (Acute) Paresthesia of right arm (Acute) Obesity (Acute) Nephrolithiasis (Acute) Nasal polyps (Acute) Microscopic hematuria (Acute) Lumbar radiculopathy (Chronic) Low back pain (Chronic) Keloid scar (Acute) Inguinal hernia (Acute) Impaired fasting glucose (Acute) Hypertrophy of nasal turbinates (Acute) Hemorrhoids (Acute) Dyslipidemia (Acute) Chronic sinusitis, unspecified (Acute) Carotid artery plaque (Chronic) Benign prostate hyperplasia (Acute) Benign localized hyperplasia of prostate with urinary obstruction (Acute) Benign colonic polyp (Acute) Anosmia (Acute) Allergic rhinitis (Acute) Actinic keratosis (Acute) Acquired deviated nasal septum (Acute) Encounter for pre-operative examination Chest pain (Acute) Chest pain (Acute) Dysuria (Acute) Pneumonia (Acute) Unstable angina (Acute 04/08/14) Vertigo (Acute) Constantine disease (Chronic) Cor athrscl-uns vessel (Chronic 08/22/12) Benign hypertension (Chronic 08/22/12) BPH w/o urinary obs/LUTS (Chronic 08/22/12) Encounter for pre-operative examination CAD (coronary artery disease) GERD (gastroesophageal reflux disease) (Chronic) Acute blood loss anemia Hypertension (Chronic) Arthritis (Chronic) PAD (peripheral artery disease) (Chronic) Chronically on Plavix Calculus of kidney (Resolved 08/22/12) BPH (benign prostatic hyperplasia) (Acute) CAD (coronary artery disease) GERD (gastroesophageal reflux disease) Hyperlipidemia Osteoarthritis Surgical History S/P right coronary artery (RCA) stent placement (Acute) Percutaneous transluminal coronary angioplasty status (08/22/12) History of adenoidectomy History of inguinal herniorrhaphy History of umbilical hernia repair History of tonsillectomy H/O transurethral resection of prostate History of cardiac cath 2007 AND 2012 History of cataract surgery LEFT CATARACT History of colonoscopy History of esophagogastroduodenoscopy (EGD) History of heart artery stent 2007 AND 2012 (2 TOTAL STENTS) History of herniorrhaphy RT/LEFT INGUINAL History of tonsillectomy History of tooth extraction Nasal polyps REMOVED Family History Grandmother Family history of diabetes mellitus Father Coronary heart disease Mother Coronary heart disease Social History Preferred Language: Citizen Of [place] Communication Ability: Effective 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 Other Information That Helps Us Care for You: No Feels Safe at Home: Yes Safety Concerns: Feels Safe At This Time Smoking Status: Former smoker Tobacco Type: cigarettes ; packs per day: 1 ; Cigarettes Per Day: 40 ; Do You Dip or Chew Tobacco: No ; Smoking End Date: 14- years ago ; Second Hand Exposure: No ; Tobacco Cessation Education Requested by Patient: No Hx Alcohol Use: No Hx Substance Use: No caffeine: No Seatbelt Use: always Review of Systems See HPI for pertinent positives & negatives. and A total of 10 systems reviewed and were otherwise negative Physical Exam Vital Signs Vital Signs - 24 hr 03/08/19 13:48 Temperature 36.6 C Temperature Source Oral Sepsis Recent Fever Within 48 Hours No Sepsis New/Unexplained Change in Mental Status No Sepsis Action Taken by Nursing No Action Required Pulse Rate 88 Respiratory Rate 16 Blood Pressure 153/79 H Blood Pressure Mean 103 Pulse Oximetry 96 Oxygen Delivery Method Room Air GENERAL: Patient is awake, alert, and in no acute distress.Patient is resting comfortably and showing no signs of anxiety EYES: The conjunctivae are clear. The pupils are round and reactive. EARS, NOSE, MOUTH AND THROAT: The nose is without any evidence of any deformity. Mucous membranes are moist.Tongue is midline NECK: The neck is nontender and supple. RESPIRATORY: Normal respiratory effort is noted. There is no evidence of wheezing rhonchi or rales to auscultation. CARDIOVASCULAR: Regular rate and rhythm noted. There no murmurs rubs or gallops normal S1 normal S2 GASTROINTESTINAL: The abdomen is soft. Bowel sounds are present in all quadrants. Abdomen is nontender. MUSCULOSKELETAL/EXTREMITIES: There is no evidence of gross deformity. Full range of motion is noted in the hips and shoulders. Trace pedal edema bilaterally. SKIN: There is no obvious evidence of any rash. There are no petechiae, pallor or cyanosis noted. Trace pedal edema bilaterally. NEUROLOGIC: Patient is awake alert and oriented x3. Course 1355: Past medical records reviewed. The patient was evaluated in room B03B. A complete history and physical exam was performed. 1404: The patient was made a HEART alert at this time. 1405: I discussed the patient's case with Dr. Larose, Cardiology. He will evaluated the patient for further management and care. 1411: The patient is going to the catheterization lab under the care of Dr. Larose. Administered Medications Sodium Chloride (Nss 1000ml) 1,000 mls @ 100 mls/hr IV .Q10H LACHELLE Stop: 03/08/19 20:44 Last Admin: 03/08/19 16:33 Dose: 100 mls/hr Documented by: [id number] Insulin Aspart (Novolog Flexpen) 0 units SC ACHS LACHELLE Stop: 04/07/19 16:29 Last Admin: 03/08/19 17:00 Dose: Not Given Documented by: [id number] Cosigned by: [id number] Discontinued Medications Adenosine (Adenoscan) Confirm Administered Dose 6 mg IV .STK-MED ONE Stop: 03/08/19 14:49 Last Admin: 03/08/19 16:30 Dose: Not Given Documented by: [id number] Aspirin (Aspirin) 324 mg PO NOW STA Stop: 03/08/19 13:57 Last Admin: 03/08/19 14:06 Dose: 324 mg Documented by: [id number] Clopidogrel Bisulfate (Plavix) Confirm Administered Dose 600 mg .ROUTE .STK-MED ONE Stop: 03/08/19 15:30 Last Admin: 03/08/19 16:30 Dose: Not Given Documented by: [id number] Fentanyl Citrate (Fentanyl Citrate) Confirm Administered Dose 100 mcg .ROUTE .STK-MED ONE Stop: 03/08/19 14:07 Last Admin: 03/08/19 16:29 Dose: Not Given Documented by: [id number] Heparin Sodium (Porcine) (Heparin Iv Bolus (Sizing Sprayer Use Only)) Confirm Administered Dose 10,000 units .ROUTE .STK-MED ONE Stop: 03/08/19 14:07 Last Admin: 03/08/19 16:29 Dose: Not Given Documented by: [id number] Heparin Sodium/Sodium Chloride (Heparin/Nss 1000 Unit/500ml Flush Bag) Confirm Administered Dose 3,000 units IV .STK-MED ONE Stop: 03/08/19 14:07 Last Admin: 03/08/19 16:30 Dose: Not Given Documented by: [id number] Midazolam HCl (Versed) Confirm Administered Dose 2 mg .ROUTE .STK-MED ONE Stop: 03/08/19 14:07 Last Admin: 03/08/19 16:30 Dose: Not Given Documented by: [id number] Nicardipine HCl (Cardene) Confirm Administered Dose 25 mg .ROUTE .STK-MED ONE Stop: 03/08/19 14:07 Last Admin: 03/08/19 16:29 Dose: Not Given Documented by: [id number] Nitroglycerin/Dextrose (Nitroglycerin/D5w 100 Mcg/Ml 20ml Syringe) Confirm Administered Dose 2,000 mcg .ROUTE .STK-MED ONE Stop: 03/08/19 14:08 Last Admin: 03/08/19 16:30 Dose: Not Given Documented by: [id number] Medical Decision Making Differential Diagnosis Differential diagnoses includes but is not limited to acute coronary syndrome, myocardial infarction, pericarditis, pulmonary embolus, aortic dissection, pneumonia, pneumothorax, musculoskeletal, shingles, esophageal. Medical Records Attestation: I reviewed the patient's medical records. Home Medications Current Medication List: was personally reviewed by me Laboratory Data Attestation: I reviewed the patient's lab results. Result diagrams: 03/08/19 14:06 03/08/19 14:06 Lab Results 03/08/19 03/08/19 03/08/19 Range/Units 14:06 14:06 14:06 WBC 8.45 (4.8-10.8) K/uL RBC 5.27 (4.7-6.1) M/uL Hgb 15.9 (14.0-18.0) g/dL Hct 45.7 (42-52) % MCV 86.7 (80-100) fL MCH 30.2 (25-34) pg MCHC 34.8 (32-36) g/dL RDW Std Deviation 44.9 (36.4-46.3) fL RDW Coeff of Rogelio 14.2 (11.5-14.5) % Plt Count 181 (130-400) K/uL MPV 9.9 (7.4-10.4) fL Immature Gran % (Auto) 0.6 % Neut % (Auto) 75.9 % Lymph % (Auto) 13.0 % [place] % (Auto) 8.9 % Eos % (Auto) 1.2 % Baso % (Auto) 0.4 % Immature Gran # (Auto) 0.05 H (0.00-0.02) K/uL Neut # (Auto) 6.42 (1.4-6.5) K/uL Lymph # (Auto) 1.10 L (1.2-3.4) K/uL [place] # (Auto) 0.75 H (0.11-0.59) K/uL Eos # (Auto) 0.10 (0-0.5) K/uL Baso # (Auto) 0.03 (0-0.2) K/uL PT 10.4 (9.0-12.0) Seconds INR 1.0 (0.9-1.1) APTT 26.6 (21.0-31.0) Seconds PTT Ratio 1.0 Activ Coag Time Kaolin (94-140) SECONDS Sodium 138 (136-145) mmol/L Potassium 4.2 (3.5-5.1) mmol/L Chloride 105 (98-107) mmol/L Carbon Dioxide 26 (21-32) mmol/L Anion Gap 7.0 (3-11) BUN 18 (7-18) mg/dl Creatinine 1.07 (0.6-1.4) mg/dl Est Cr Clr Drug Dosing 73.5 ml/min Est GFR ( Amer) 78.3 Est GFR (Non-Af Amer) 67.5 BUN/Creatinine Ratio 16.9 (10-20) Glucose 120 H (70-99) mg/dl Calcium 9.2 (8.5-10.1) mg/dl Total Bilirubin 0.6 (0.2-1) mg/dl AST 26 (15-37) U/L ALT 27 (12-78) U/L Alkaline Phosphatase 79 (45-117) U/L Total Creatine Kinase 185 (39-308) U/L CK-MB (CK-2) 9.1 H (0.5-3.6) ng/ml CK/CKMB % Calc 4.9 H (0-3.0) POC Troponin I (0-0.045) ng/ml Total Protein 7.6 (6.4-8.2) gm/dl Albumin 3.9 (3.4-5.0) gm/dl Globulin 3.7 (2.5-4.0) gm/dl Albumin/Globulin Ratio 1.1 (0.9-2) Lipase 210 (73-393) U/L 03/08/19 03/08/19 Range/Units 14:08 15:04 WBC (4.8-10.8) K/uL RBC (4.7-6.1) M/uL Hgb (14.0-18.0) g/dL Hct (42-52) % MCV (80-100) fL MCH (25-34) pg MCHC (32-36) g/dL RDW Std Deviation (36.4-46.3) fL RDW Coeff of Rogelio (11.5-14.5) % Plt Count (130-400) K/uL MPV (7.4-10.4) fL Immature Gran % (Auto) % Neut % (Auto) % Lymph % (Auto) % [place] % (Auto) % Eos % (Auto) % Baso % (Auto) % Immature Gran # (Auto) (0.00-0.02) K/uL Neut # (Auto) (1.4-6.5) K/uL Lymph # (Auto) (1.2-3.4) K/uL [place] # (Auto) (0.11-0.59) K/uL Eos # (Auto) (0-0.5) K/uL Baso # (Auto) (0-0.2) K/uL PT (9.0-12.0) Seconds INR (0.9-1.1) APTT (21.0-31.0) Seconds PTT Ratio Activ Coag Time Kaolin 219 H (94-140) SECONDS Sodium (136-145) mmol/L Potassium (3.5-5.1) mmol/L Chloride (98-107) mmol/L Carbon Dioxide (21-32) mmol/L Anion Gap (3-11) BUN (7-18) mg/dl Creatinine (0.6-1.4) mg/dl Est Cr Clr Drug Dosing ml/min Est GFR ( Amer) Est GFR (Non-Af Amer) BUN/Creatinine Ratio (10-20) Glucose (70-99) mg/dl Calcium (8.5-10.1) mg/dl Total Bilirubin (0.2-1) mg/dl AST (15-37) U/L ALT (12-78) U/L Alkaline Phosphatase (45-117) U/L Total Creatine Kinase (39-308) U/L CK-MB (CK-2) (0.5-3.6) ng/ml CK/CKMB % Calc (0-3.0) POC Troponin I 0.16 H (0-0.045) ng/ml Total Protein (6.4-8.2) gm/dl Albumin (3.4-5.0) gm/dl Globulin (2.5-4.0) gm/dl Albumin/Globulin Ratio (0.9-2) Lipase (73-393) U/L ECG Data Attestation: I personally reviewed and interpreted this ECG as follows: Indication: chest pain Rate (beats per minute): 88 Rhythm: sinus rhythm Findings: + ST depression (Inferior and lateral); no PAC, no PVC and no ectopy Comparison ECG Date: from (07/19/18) Change: the following changes noted Additional Comments: ST depression is new. Blood Pressure Blood Pressure Findings: Elevated blood pressure Blood Pressure Disposition: elevated BP felt to be situational MDM Narrative The patient is a 73-year-old male who presented to the emergency department for an evaluation of chest pain. The patient had a history of coronary artery dis ease with stenting and his EKG appeared to be consistent with an acute coronary syndrome. He was treated with aspirin in the emergency department. Given his history I did discuss his EKG with the cloud engagement partner and the patient was made a heart alert in the emergency department. The patient was reevaluated multiple times. His pain was improved from the time of his presentation however his [id number] troponin was mildly elevated. The patient was agreeable to evaluation by the cloud engagement partner and was taken to the cardiac Sizing Sprayer for emergent evaluation. I discussed the patient's laboratory results and his EKG with him. Impression & Plan Acute [place], Unstable angina Critical Care Time Critical Care Time: Yes Total Critical Care Time: 35 I have personally spent 35 minutes of critical care time in the direct management of this patient. This includes bedside care, interpretation of diagnostic studies, and testing, discussion with consultants, patient, and family members, and other required patient management activities. This 35 minutes is in excess of all separately billable procedures. Discharge Plan Visit Data *Final* Discharge Date/Time: 03/08/19 14:16 Chief Complaint: Chest Pain Stated Complaint: PAIN IN CENTER OF CHEST INTO NECK ED Provider: Fabrizio Atkinson Discharge Problem: Acute [place], Unstable angina Patient Disposition: Admitted As Inpatient Discharge Instructions Interventions: ED Discharge Assessment Last Done: 03/08/19 14:16 Discharge Problem: Acute [place] Qualifiers: Myocardial infarction type: non-ST elevation myocardial infarction Qualified Code(s): I21.4 - Non-ST elevation (NSTEMI) myocardial infarction The scribe's documentation has been prepared under my direction and personally reviewed by me in its entirety. I confirm that the note above accurately reflects all work, treatment, procedures, and medical decision making performed by me.
[2019-03-08] MEDS: INSULIN ASPART 100 UNITS/ML 3 ML PEN SC SCH ×2 (17:00→21:29)
--- NOTE | 2019-03-08 17:45 | Cardiac Catheterization ---
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 Cardiac Status Clinical evaluation leading to the procedure CAD Presenation: Non STEMI Anginal Classification: CCS IV Heart Failure: No Cardiogenic Shock within 24 Hours: No Cardiac Arrest within 24 Hours: No Imaging Studies Past 6 Months: Yes Stress Studies Past 6 Months: No Diagnostic Physicians Name: Isaac Larose MD Status: Urgent Closure Device Percutaneous Entry Location: Radial Closure Device: Radial Band Recommendations: PCI without planned CABG PCI Indication: PCI for high risk Non-SCOTTY Lesion Segment Name: mid LAD Culprit Artery: Yes Stenosis Prior to Rx (%): 70 Chronic Total Occlusion: No IVUS: No FFR: Yes Ratio: less than or equal to 0.75% Pre-Procedure ALIYAH Flow: 3 Previously Treated Lesion: No Lesion Complexity: Non-High/Non-C Lesion Length (mm): 15 Thrombus Present: No Bifurcation Lesion: Yes Guidewire Across Lesion: Stenosis Post-Procedure (%): 0 Post-Procedure ALIYAH Flow: 3 Devices(s) Deployed: Yes Yes Intraprocedure Events Significant Disection: No Perforation: No Cardiac Cath Procedure Full Procedure Date March 08, 2019 Pre-Procedure Diagnosis Pre-Procedure Diagnosis: Non STEMI AUC Score AUC Score: 7 Post-Procedure Diagnosis Post-Procedure Diagnosis: Severe CAD and Successful PCI Procedure(s) Performed Procedure(s) Performed: Coronary Angiography, Left Heart Cath, LV Angiography, Drug Eluting Stent and Fractional Flow [place] 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 Very small first diagonal subtotally occluded. Mild proximal disease in second diagonal. Circumflex -small caliber vessel, 60% distal stenosis prior to small left PLB. Small OM1 with focal 60 to 70% stenosis. RCA -large caliber vessel, 20 to 30% mid segment disease, distal stent widely patent. Luminal irregularities in right PDA, distal right PLB LVEDP -6 -- PCI -- Antithrombotic therapy: Heparin, clopidogrel Procedure: Left main cannulated with EBU 3.5 guide [place] FFR wire placed into distal LAD iFR 0.87 FFR 0.74 FFR wire removed and BMW wire passed across lesion into distal vessel Mid LAD lesions predilated with 2.5 compliant balloon Earlymid LAD stenosis dilated again with a 3.0 compliant balloon Latemid stenosis stented with 3.0 x 15 mm [place] drug-eluting stent Earlymid stenosis stented with 3.0 x 15 mm Marco drug-eluting stent Stents post-dilated with 3.0 noncompliant balloon IC vasodilators administered for spasm Post procedure ALIYAH 3 flow, stent well expanded with minimal residual stenosis. Residual ostial stenosis of second diagonal with ALIYAH II-III flow. Arterial Closure: TR band Summary: 1. Multi-vessel coronary artery disease -Patent proximal LAD stent, sequential mid LAD stenosis (70% earlymid, 50 to 60% latemid stenosis) [FFR 0.74] -Small distal circumflex 60%, small OM1 60-70% disease -Patent distal RCA stent 2. Normal intracardiac filling pressure 3. Successful PCI of mid LAD sequential lesions with 2 nonoverlapping drug- eluting stents (3.0 x 15, 3.0 x 15 Marco). 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
[2019-03-08] MEDS ORDERED: MONTELUKAST SODIUM 10 MG TABLET PO SCH (21:00)
[2019-03-08] MEDS ORDERED: ROSUVASTATIN CALCIUM 20 MG TAB PO SCH (21:00)
[2019-03-08] MEDS: AVODART-ORDER AWAITING ACTION SCH (23:44)
[2019-03-09 04:10] LABS: BUN Creatinine Ratio 16.7 (10-20); Calcium 8.4 mg/dl (8.5-10.1); Creatinine Clr Calc Pharmacy 79.4 ml/min; Est GFR (Non-African American) 74.2; Potassium 4.1 mmol/L (3.5-5.1)
[2019-03-09 04:36] LABS: Troponin I 36.6 ng/ml (0-0.045)
[2019-03-09 04:56] LABS: Basophils # (auto) 0.04 K/uL (0-0.2); Basophils % (auto) 0.4 %; Eosinophils # (auto) 0.14 K/uL (0-0.5); Eosinophils % (auto) 1.4 %; Hematocrit (blood only) 42.9 % (42-52); Hemoglobin 14.7 g/dL (14.0-18.0); Immature Granulocytes # (auto) 0.03 K/uL (0.00-0.02); Immature Granulocytes % (auto) 0.3 %; Lymphocytes # (auto) 1.03 K/uL (1.2-3.4); Lymphocytes % (auto) 10.6 %; Mean Corpuscular Hemoglobin 29.8 pg (25-34); Mean Corpuscular Hgb Conc 34.3 g/dL (32-36); Mean Platelet Volume 9.8 fL (7.4-10.4); Monocytes # (auto) 1.11 K/uL (0.11-0.59); Monocytes % (auto) 11.4 %; Neutrophils # (auto) 7.39 K/uL (1.4-6.5); Neutrophils % (auto) 75.9 %; Platelet Count 164 K/uL (130-400); RDW Coefficient of Variation 14.3 % (11.5-14.5); RDW Standard Deviation 45.2 fL (36.4-46.3); Red Blood Count 4.93 M/uL (4.7-6.1); White Blood Count 9.74 K/uL (4.8-10.8)
[2019-03-09 07:13] LABS: Estimated Average Glucose 137 mg/dl; Hemoglobin A1C 6.4 % (4.5-5.6)
[2019-03-09] MEDS ORDERED: PERFLUTREN LIPID MICROSPHERE (DEFINITY) IV ONE (07:26)
[2019-03-09] MEDS: INSULIN ASPART 100 UNITS/ML 3 ML PEN SC SCH ×2 (07:29→11:28)
[2019-03-09] MEDS: AVODART-ORDER AWAITING ACTION SCH (08:03)
[2019-03-09] MEDS ORDERED: ASPIRIN 81 MG ECTAB PO SCH (09:00)
[2019-03-09] MEDS ORDERED: LISINOPRIL/HCTZ 10/12.5MG TAB PO SCH (09:00)
[2019-03-09] MEDS ORDERED: CLOPIDOGREL BISULFATE 75 MG TAB PO SCH (09:00)
[2019-03-09] MEDS ORDERED: ISOSORBIDE MONO EXTENDED REL 30 MG TABCR PO SCH (09:00)
[2019-03-09 11:01] VITALS: BP 121/78; PULSE 83; TEMP 98.1; O2SAT 95
[2019-03-09] MEDS ORDERED: METOPROLOL SUCC 25MG EXT REL TAB PO SCH (12:00)
--- NOTE | 2019-03-09 12:26 | Discharge Summary ---
Date of Service March 09, 2019 Admission HPI Per Admitting Provider 73-year-old man here with acute chest pain, EKG changes and mildly elevated troponin consistent with ACS. Patient seen emergently in the ED after heart alert activated in the setting of ongoing chest pain. Past cardiac history remarkable for coronary artery disease post bare-metal stent to his LAD in 2007 and drug-eluting stent to distal RCA in 2013. 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 He was previously hospitalized in November 2018 with chest pain and at that time underwent a stress test which was negative for ischemia. Other medical issues include hypertension, type 2 diabetes, GERD, dyslipidemia, BPH and prior hemorrhoidal bleeding. Currently taking Plavix every other day. Chest pain began approximately 1130 today while walking out from his urology visit. Pain is persisted since that time, now 2-3 out of 10. Pain different than what he experienced in November. EKG showed subtle anterior ST depressions. Initial troponin positive at 0.16. Specialty Data Cardiology Cardiac Cath/PCI 03/08/2019- 1. Multi-vessel coronary artery disease -Patent proximal LAD stent, sequential mid LAD stenosis (70% earlymid, 50 to 60% latemid stenosis) [FFR 0.74] -Small distal circumflex 60%, small OM1 60-70% disease -Patent distal RCA stent 2. Normal intracardiac filling pressure 3. Successful PCI of mid LAD sequential lesions with 2 nonoverlapping drug- eluting stents (3.0 x 15, 3.0 x 15 Marco). Discharge Data Consultations 03/08/19 15:38 Consult Cardiac Rehabilitation Routine Procedures Performed Operation Date: 03/08/19 14:15 Actual Procedures s Drug Eluting Stent SGl Vessel - Alton Larose MD p Cath, Left with Cors and Vent - Alton Larose MD s Cineradiography w/Routine Exam - Alton Larose MD s Fraction Flow [employer] SGL Ves - Alton Larose MD Hospital Course (1) NSTEMI (non-ST elevated myocardial infarction): Patient was taken urgently for cardiac catheterization. Was found to have widely patent RCA and proximal LAD stent. Noted to have moderate to severe sequential mid LAD lesions. FFR positive at 0.74. Underwent PCI with placement of 2 drug-eluting stents to sequential lesions in mid LAD. Ostium of small to moderate second diagonal stenosed post procedure with ALIYAH II flow. Admitted to telemetry post procedure. Occasional PVCs but no significant arrhythmia. Remained largely chest pain-free. No apparent access site complications on hospital day 2. Repeat labs stable. Troponin peaked overnight at 36. Repeat echocardiogram in the a.m. showed preserved LV function with mid apical anterolateral hypokinesis. On day of discharge feeling well. Discharged home on every day DAPT with aspirin, clopidogrel. Hold metformin for 48 hours. We will follow-up with me in [address] Seals going forward. Discharge Instructions Home Medications azelastine 0.15 % (205.5 mcg) nasal spray 2 sprays INTNAS HS 03/12/18 [History Confirmed 03/08/19] coenzyme Q10 100 mg capsule 100 mg PO BID cap 03/12/18 [History Confirmed 03/08/19] fluticasone propionate 50 mcg/actuation nasal spray,suspension 2 sprays INTNAS QAM 03/12/18 [History Confirmed 03/08/19] montelukast 10 mg tablet 10 mg PO HS 03/12/18 [History Confirmed 03/08/19] ranitidine 150 mg tablet 150 mg PO BID 03/12/18 [History Confirmed 03/08/19] rosuvastatin 20 mg tablet 20 mg PO HS 03/12/18 [History Confirmed 03/08/19] aspirin [Aspir-81] 81 mg PO QAM 07/19/18 [History Confirmed 03/08/19] lisinopril-hydrochlorothiazide 1 tab PO QAM 07/19/18 [History Confirmed 03/08/19] hydrocortisone 2.5 % topical cream with perineal applicator 1 applic IA .USE DIRECTED. #1 gm 11/19/18 [History Confirmed 03/08/19] isosorbide mononitrate ER 30 mg tablet,extended release 24 hr 30 mg PO QAM #30 tab 12/22/18 [Rx Confirmed 03/08/19] metoprolol succinate ER 25 mg capsule sprinkle, ext. release 24 hr 25 mg PO DAILY ea 12/22/18 [History Confirmed 03/08/19] nitroglycerin 0.4 mg sublingual tablet 0.4 mg SUBLINGUAL .COMPLEX tab 12/22/18 [History Confirmed 03/08/19] OneTouch Ultra Blue Test Strip #50 ea NS 12/23/18 [Rx Confirmed 03/08/19] OneTouch Ultra2 Meter kit #1 ea NS 12/23/18 [Rx Confirmed 03/08/19] OneTouch UltraSoft Lancets #100 ea NS 12/23/18 [Rx Confirmed 03/08/19] dutasteride 0.5 mg capsule 0.5 mg PO DAILY #90 cap 03/08/19 [Rx Confirmed 03/08/19] clopidogrel 75 mg PO QAM 30 Days #30 tab 03/09/19 [Rx]
== END 2019-03-09 15:06 | disposition home or self-care (01) | DRG 247 ==
LOC: ED 13:44 → ASU 14:15 → 2E 15:19
DX: I73.9 Peripheral vascular disease, unspecified; I25.110 Atherosclerotic heart disease of native coronary artery with unstable angina pectoris; Z79.02 Long term (current) use of antithrombotics/antiplatelets; K21.9 Gastro-esophageal reflux disease without esophagitis; I21.4 Non-ST elevation (NSTEMI) myocardial infarction; Z88.8 Allergy status to other drugs, medicaments and biological substances; R73.03 Prediabetes; Z82.49 Family history of ischemic heart disease and other diseases of the circulatory system; Z88.2 Allergy status to sulfonamides; Z83.3 Family history of diabetes mellitus; Z87.891 Personal history of nicotine dependence; Z95.5 Presence of coronary angioplasty implant and graft

== ENCOUNTER 2020-06-13 16:42 | Observation (INO) ==
--- NOTE | 2020-06-13 17:48 | Emergency Department Note ---
Impression & Plan Precordial chest pain, Hypertension, History of coronary artery disease ED Provider Note NAME: KELY DASILVA AGE: 75 SEX: M : 1945 ARRIVES VIA: Walk-In INFORMANT: [Patient] ED PROVIDER(S): [Norbert Stone MD] CHIEF COMPLAINT: Chest pain HISTORY OF PRESENT ILLNESS: The patient is a 75-year-old male who presents to the ER with a few days of central chest discomfort with exertion. He states that if he walks, the pain comes on and gets to be a 6 on a scale of 1-10. He feels short of breath with it. There is no pain radiation, nausea or sweating. He rests and the pain gets better. 1 day, he took a nitroglycerin which also helped the pain. The patient has a history of ID, he states that he had been doing well for a long time and now, he is afraid he has another blockage. The patient states that he currently has no chest pain. He is resting right now though. There has been no cough or congestion. No sore throat. No abdominal pain, vomiting or diarrhea. REVIEW OF SYSTEMS: See HPI for pertinent positives and negatives. A total of ten systems were reviewed and were otherwise negative. PMHx/PSHx: See Below SOCIAL HISTORY: See Below. PHYSICAL EXAM: GENERAL: Patient is in no acute distress. HEENT: No acute trauma, normocephalic atraumatic, mucous membranes moist, no nasal congestion, no scleral icterus. NECK: No stridor, no adenopathy, no meningismus, trachea is midline. LUNGS: Clear to auscultation bilaterally, no wheeze, no rhonchi, breath sounds equal. Chest: Nontender chest wall. HEART: Without murmurs gallops or rubs, regular rate and rhythm. ABDOMEN: Soft, nontender, bowel sounds positive, no hernias, no peritonitis. EXTREMITIES: No cyanosis or edema, full range of motion of all the joints without pain or difficulty, no signs for acute trauma. NEUROLOGIC: Oriented x 3, no acute motor or sensory deficits, no focal weakness. SKIN: No rash, no jaundice, no diaphoresis. DIFFERENTIAL DIAGNOSIS: Cardiac ischemia, aortic dissection, pulmonary embolism, pneumothorax, pneumonia, pericarditis, myocarditis, esophageal rupture, GERD, cholecystitis, pancreatitis, musculoskeletal, as well as other pathologies. EMERGENCY DEPARTMENT COURSE/PROCEDURES: ECG: Indication was chest pain. The ECG shows a sinus rhythm with a first- degree AV block. There is an old septal infarct. The rate is 74. There is no ST elevation, no PVCs. There are some T wave inversions laterally. Compared to an ECG from 08 March 2019, the lateral T wave inversion in aVL is new. Continuous Cardiac Monitoring: An order was placed for continuous cardiac monit oring. The monitor shows a rate of 67 with sinus rhythm with a first-degree AV block. MEDICAL DECISION MAKING: There is no leukocytosis or concerning anemia. There is a normal platelet count. No coagulopathy. No significant electrolyte abnormality or kidney failure. No worrisome liver enzyme elevation. No evidence for pancreatitis. ECG shows a sinus rhythm, there was no ST elevation. Cardiac enzyme testing x1 is not consistent with acute cardiac injury. Chest x-ray does not show pneumonia, mediastinal widening or CHF. On exam, the patient was not having any chest pain. He was noted to be hypertensive. The patient received nitroglycerin paste, 2 inches. His blood pressure is now nicely controlled. He does not have any chest pain. Given the patient's past history, given his description of chest discomfort, I do think a hospital stay is warranted. I am concerned about angina as a cause for his discomfort. I did speak with cardiology. I spoke to the patient about his findings. Case management has been involved. The on-call hospitalist was consulted. Past Med/Surg History Medical History Acquired deviated nasal septum Actinic keratosis Anosmia Arthritis Benign colonic polyp Benign localized hyperplasia of prostate with urinary obstruction BRBPR (bright red blood per rectum) Calculus of kidney Carotid artery plaque No significant stenosis 2019 ultrasound Chronic anticoagulation Dizziness Dyslipidemia GERD (gastroesophageal reflux disease) Gross hematuria Hemorrhoids History of cataract HLD (hyperlipidemia) Hypertension Impaired fasting glucose Inguinal hernia Keloid scar Lumbar radiculopathy Microscopic hematuria Nephrolithiasis Obesity Osteoarthritis PAD (peripheral artery disease) Chronically on Plavix Paresthesia of right arm Pneumonia Polyneuropathy Retention of urine Sacroiliitis Sciatica Spinal stenosis of lumbar region Vertigo Surgical History H/O cataract extraction H/O transurethral resection of prostate History of adenoidectomy History of cataract surgery LEFT CATARACT History of colonoscopy History of esophagogastroduodenoscopy (EGD) History of herniorrhaphy RT/LEFT INGUINAL History of inguinal herniorrhaphy History of tonsillectomy History of tooth extraction History of umbilical hernia repair Nasal polyps REMOVED Presence of stent in LAD coronary artery (2007) S/P right coronary artery (RCA) stent placement (2013) Family History Grandmother Family history of diabetes mellitus Father Coronary heart disease Myocardial infarction Mother Coronary heart disease Denies family history of Ovarian cancer Prostate cancer Breast cancer Colorectal cancer Social History Smoking Status: Former smoker Tobacco Type: Cigarettes Age Started Using Tobacco: 38; Age Quit Using Tobacco: 58; packs per day: 1.5; Years Smoked: 20; Cigarettes Per Day: 40; Number of Years Since Quit: 15; Second Hand Exposure: No (REMOTE HISTORY); Hx Alcohol Use: No Hx Substance Use: No Preferred Language: Indonesian Communication Ability: Effective Visual Impairment: No Limitations Hearing Ability: Use of Hearing Aid Environmental Health Specialist Required: No Beliefs That Will Affect Care: None marital status: / Current Living Situation: Alone current occupational status: retired 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 Feels Safe at Home: Yes Childhood Exposure to Second-Hand Smoke: Yes caffeine: No Dental Care, Regularly: No Physical Activity Frequency: 1-2 Times per Week Physical Activity Frequency Comment: cardiac rehab, treadmill, weights 60minutes Seatbelt Use: always Sunscreen Use: Yes Assistive Devices: Denture - Upper and Denture - Lower Allergies Allergies Allergy/AdvReac Type Severity Reaction Status Date / Time Sulfa (Sulfonamide Allergy Intermediate HIVES Verified 06/13/20 18:56 Antibiotics) pravastatin AdvReac Mild MUSCLE Verified 06/13/20 18:56 ACHES simvastatin AdvReac Mild MUSCLE Verified 06/13/20 18:56 ACHES Home Meds Home Medications Medication Instructions Recorded Confirmed coenzyme Q10 100 mg capsule 100 mg PO BID cap 03/12/18 06/13/20 hydrocortisone 2.5 % topical cream 1 applic [place] USEASDIRECTD #1 gm 06/18/19 06/13/20 with perineal applicator clopidogrel 75 mg tablet 75 mg PO QAM tab 12/26/19 06/13/20 aspirin 81 mg PO QAM 06/13/20 06/13/20 lisinopril 20 mg PO QAM 06/13/20 06/13/20 metoprolol succinate 25 mg PO QAM 06/13/20 06/13/20 Previous Rx's Medication Instructions Recorded OneTouch Ultra Blue Test Strip #50 ea NS 12/23/18 OneTouch Ultra2 Meter #1 ea NS 12/23/18 OneTouch UltraSoft Lancets #100 ea NS 12/23/18 rosuvastatin 20 mg tablet 20 mg PO HS #90 tab 06/15/19 fluticasone propionate 50 2 sprays INTNAS QAM #9.9 ml 09/06/19 mcg/actuation nasal spray,suspension montelukast 10 mg tablet 10 mg PO HS #90 tab 10/31/19 isosorbide mononitrate 30 mg 30 mg PO QAM #90 tab 12/07/19 tablet,extended release 24 hr gabapentin 100 mg capsule 200 mg PO TID #540 cap 02/06/20 dutasteride 0.5 mg capsule 0.5 mg PO DAILY #90 cap 03/13/20 famotidine 20 mg tablet 20 mg PO BID #180 tab 03/22/20 nitroglycerin 0.4 mg sublingual 0.4 mg SUBLINGUAL .COMPLEX #25 tab 05/01/20 tablet azelastine 0.15 % (205.5 mcg) 2 spray INTNAS HS #30 ml 06/04/20 nasal spray Results & Data (ED) Vital Signs Vital Signs - 24 hr 06/13/20 16:45 06/13/20 18:00 06/13/20 18:21 Temperature 36.4 C L Temperature Source Oral Pulse Rate 82 73 Pulse Rate [Apical] 67 Pulse Rhythm Regular Pulse Strength Normal Respiratory Rate 18 17 18 Respiratory Effort / Characteristics Non-Labored Spontaneous Respiratory Depth Normal Respiratory Pattern Regular Blood Pressure 203/98 H 138/91 Blood Pressure [Right Arm] 138/91 Blood Pressure Mean 133 102 Blood Pressure Mean [Right Arm] 106 Blood Pressure Position Sitting Pulse Oximetry 97 98 97 Oxygen Delivery Method Room Air Room Air Sepsis Recent Fever Within 48 Hours No Sepsis New/Unexplained Change in Mental Status No Sepsis Action Taken by Nursing No Action Required 06/13/20 18:30 Temperature Temperature Source Pulse Rate 68 Pulse Rate [Apical] Pulse Rhythm Pulse Strength Respiratory Rate 17 Respiratory Effort / Characteristics Respiratory Depth Respiratory Pattern Blood Pressure 145/89 H Blood Pressure [Right Arm] Blood Pressure Mean 110 Blood Pressure Mean [Right Arm] Blood Pressure Position Pulse Oximetry 96 Oxygen Delivery Method Sepsis Recent Fever Within 48 Hours Sepsis New/Unexplained Change in Mental Status Sepsis Action Taken by Group Home Medications Current Medication List: was personally reviewed by me Laboratory Data Attestation: I reviewed the patient's lab results. Result diagrams: 06/13/20 17:45 06/13/20 17:45 Lab Results 06/13/20 06/13/20 06/13/20 Range/Units 17:45 17:45 17:45 WBC 6.46 (4.8-10.8) K/uL RBC 4.59 L (4.7-6.1) M/uL Hgb 14.2 (14.0-18.0) g/dL Hct 42.0 (42-52) % MCV 91.5 (80-100) fL MCH 30.9 (25-34) pg MCHC 33.8 (32-36) g/dL RDW Std Deviation 42.9 (36.4-46.3) fL RDW Coeff of Rogelio 12.9 (11.5-14.5) % Plt Count 181 (130-400) K/uL MPV 9.7 (7.4-10.4) fL Immature Gran % (Auto) 0.3 % Neut % (Auto) 66.2 % Lymph % (Auto) 16.3 % Turner % (Auto) 12.8 % Eos % (Auto) 3.9 % Baso % (Auto) 0.5 % Neut # (Auto) 4.28 (1.4-6.5) K/uL Lymph # (Auto) 1.05 L (1.2-3.4) K/uL Turner # (Auto) 0.83 H (0.11-0.59) K/uL Eos # (Auto) 0.25 (0-0.5) K/uL Baso # (Auto) 0.03 (0-0.2) K/uL Immature Gran # (Auto) 0.02 (0.00-0.02) K/uL PT 11.2 (9.0-12.0) Seconds INR 1.1 (0.9-1.1) APTT 27.0 (21.0-31.0) Seconds PTT Ratio 1.0 Sodium 138 (136-145) mmol/L Potassium 4.1 (3.5-5.1) mmol/L Chloride 107 (98-107) mmol/L Carbon Dioxide 26 (21-32) mmol/L Anion Gap 5.0 (3-11) BUN 16 (7-18) mg/dl Creatinine 0.90 (0.6-1.4) mg/dl Est Cr Clr Drug Dosing 85.8 ml/min Est GFR ( Amer) 95.1 Est GFR (Non-Af Amer) 82.1 BUN/Creatinine Ratio 17.6 (10-20) Glucose 98 (70-99) mg/dl Calcium 8.6 (8.5-10.1) mg/dl Magnesium 2.4 (1.8-2.4) mg/dl Total Bilirubin 0.6 (0.2-1) mg/dl AST 20 (15-37) U/L ALT 28 (12-78) U/L Alkaline Phosphatase 74 (45-117) U/L Troponin I 0.025 (0-0.045) ng/ml Total Protein 6.8 (6.4-8.2) gm/dl Albumin 3.5 (3.4-5.0) gm/dl Globulin 3.3 (2.5-4.0) gm/dl Albumin/Globulin Ratio 1.1 (0.9-2) Lipase 163 (73-393) U/L Administered Medications Discontinued Medications Nitroglycerin (Nitroglycerin 2% Ointment 30gm Tube) 2 inch EXT NOW STA Stop: 06/13/20 17:53 Last Admin: 06/13/20 18:21 Dose: 2 inch Documented by: [id number] Imaging Data Radiologist's Impression: XR chest 1V portable CLINICAL HISTORY: Atypical chest pain. COMPARISON STUDY: Chest CT February 27, 2020. FINDINGS: Lung volumes are normal. Minimal left basilar opacity and blunting of the left costophrenic angle is chronic. There is no pneumothorax or pleural effusion. Cardiac size is normal. Mediastinal contours are normal. There is no evidence for pulmonary edema. Surgical clips project over the lower neck. IMPRESSION: No acute cardiopulmonary findings. No significant change in rafa earance of the chest. Discharge Plan Visit Data Chief Complaint: Chest Pain Stated Complaint: CHEST PAIN, HIGH BLOOD PRESSURE ED Provider: Norbert Stone Discharge Problem: Precordial chest pain, Hypertension, History of coronary artery disease Patient Disposition: Admitted As Inpatient Condition: Good Forms Stand Alone Forms: [facility] Prescriptions Prescriptions: No Action coenzyme Q10 100 mg capsule 100 mg PO BID RF: 0 rosuvastatin [Crestor] 20 mg tablet 20 mg PO HS Qty: 90 RF: 3 fluticasone propionate 50 mcg/actuation spray,suspension 2 sprays INTNAS QAM Qty: 9.9 RF: 11 montelukast [Singulair] 10 mg tablet 10 mg PO HS Qty: 90 RF: 3 isosorbide mononitrate 30 mg tablet extended release 24 hr 30 mg PO QAM Qty: 90 RF: 1 gabapentin 100 mg capsule 200 mg PO TID Qty: 540 RF: 1 famotidine 20 mg tablet 20 mg PO BID Qty: 180 RF: 3 nitroglycerin 0.4 mg tablet, sublingual 0.4 mg sublingual .COMPLEX Qty: 25 RF: 0 azelastine 0.15 % (205.5 mcg) spray,non-aerosol 2 spray INTNAS HS Qty: 30 RF: 6 (DME) blood-glucose meter [OneTouch Ultra2 Meter] kit See Dose Instructions .ROUTE .MEDSUPPLY Qty: 1 RF: 0 (DME) lancets [OneTouch UltraSoft Lancets] misc See Dose Instructions .ROUTE .MEDSUPPLY Qty: 100 RF: 3 (DME) OneTouch Ultra Blue Test Strip strip See Dose Instructions .ROUTE .MEDSUPPLY Qty: 50 RF: 3 hydrocortisone 2.5 % cream with perineal applicator 1 applic [place] USEASDIRECTD Qty: 1 RF: 0 dutasteride [Avodart] 0.5 mg capsule 0.5 mg PO DAILY Qty: 90 RF: 3 clopidogrel 75 mg tablet 75 mg PO QAM RF: 0 aspirin 81 mg Tablet,Delayed Release (Dr/Ec) 81 mg PO QAM RF: 0 lisinopril 20 mg tablet 20 mg PO QAM RF: 0 metoprolol succinate 25 mg tablet extended release 24 hr 25 mg PO QAM RF: 0 Referrals Referrals: Mendoza,Alton E., MD [Primary Care Provider] - Discharge Problem: Hypertension Qualifiers: Hypertension type: unspecified Qualified Code(s): I10 - Essential (primary) hypertension
[2020-06-13] MEDS ORDERED: NITROGLYCERIN 2% OINTMENT 30GM TUBE EXT STA (17:52)
[2020-06-13 17:57] LABS: Basophils # (auto) 0.03 K/uL (0-0.2); Basophils % (auto) 0.5 %; Eosinophils # (auto) 0.25 K/uL (0-0.5); Eosinophils % (auto) 3.9 %; Hemoglobin 14.2 g/dL (14.0-18.0); Immature Granulocytes # (auto) 0.02 K/uL (0.00-0.02); Immature Granulocytes % (auto) 0.3 %; Lymphocytes # (auto) 1.05 K/uL (1.2-3.4); Lymphocytes % (auto) 16.3 %; Mean Corpuscular Hemoglobin 30.9 pg (25-34); Mean Corpuscular Hgb Conc 33.8 g/dL (32-36); Mean Corpuscular Volume 91.5 fL (80-100); Mean Platelet Volume 9.7 fL (7.4-10.4); Monocytes # (auto) 0.83 K/uL (0.11-0.59); Monocytes % (auto) 12.8 %; Neutrophils # (auto) 4.28 K/uL (1.4-6.5); Neutrophils % (auto) 66.2 %; Platelet Count 181 K/uL (130-400); RDW Coefficient of Variation 12.9 % (11.5-14.5); RDW Standard Deviation 42.9 fL (36.4-46.3); Red Blood Count 4.59 M/uL (4.7-6.1); White Blood Count 6.46 K/uL (4.8-10.8)
[2020-06-13 18:12] LABS: INR 1.1 (0.9-1.1); Prothrombin Time 11.2 Seconds (9.0-12.0)
--- NOTE | 2020-06-13 18:18 | XRay Report ---
XR chest 1V portable CLINICAL HISTORY: Atypical chest pain. COMPARISON STUDY: Chest CT February 27, 2020. FINDINGS: Lung volumes are normal. Minimal left basilar opacity and blunting of the left costophrenic angle is chronic. There is no pneumothorax or pleural effusion. Cardiac size is normal. Mediastinal contours are normal. There is no evidence for pulmonary edema. Surgical clips project over the lower neck. IMPRESSION: No acute cardiopulmonary findings. No significant change in appearance of the chest. ACT 112: Negative or not required by law. Electronically signed by: Royal Chance M.D. 06/13/2020 6:16 PM
[2020-06-13 18:24] LABS: Albumin Globulin Ratio 1.1 (0.9-2); Albumin Level 3.5 gm/dl (3.4-5.0); BUN Creatinine Ratio 17.6 (10-20); Bilirubin,Total 0.6 mg/dl (0.2-1); Calcium 8.6 mg/dl (8.5-10.1); Creatinine Clr Calc Pharmacy 85.8 ml/min; Est GFR (African American) 95.1; Est GFR (Non-African American) 82.1; Globulin 3.3 gm/dl (2.5-4.0); Magnesium 2.4 mg/dl (1.8-2.4); Potassium 4.1 mmol/L (3.5-5.1); Total Protein 6.8 gm/dl (6.4-8.2)
[2020-06-13 18:26] LABS: Troponin I 0.025 ng/ml (0-0.045)
--- NOTE | 2020-06-13 20:05 | History & Physical Report ---
Date of Service June 13, 2020 Assessment & Plan (1) Precordial chest pain: 75-year-old male with past medical history type 2 diabetes, hypertension, coronary disease, dyslipidemia, peripheral artery disease, GERD, previous AK last in March 2019 status post 2 drug-eluting stents into LAD presents with concerns of chest pain admitted for chest pain rule out. Chest pain Admit to telemetry EKG on arrival shows: Sinus rhythm with 1st degree A-V block. Old septal infarct. No ST elevations noted. Troponin on admission WNL 0.025. We will continue to trend every 6 hours x2 Holding on heparin drip at present Morphine and nitroglycerin ordered as needed chest pain Echo pending. Previous echo March 2019 reviewed: Normal LV size, borderline concentric LVH. EF 50-55%. Moderate mid to apical anterior and lateral hypokinesis. Normal RV size and function. Trace aortic regurgitation. Hemoglobin A1c and fasting lipid panel in a.m. N.p.o. after midnight for any possible cardiac intervention tomorrow Appreciate cardiology consult given patient significant history We will aspirin initiate patient right now with 243 mg ASA, pt took his baby aspirin in AM DM 2 with neuropathy A1c 6.05 December 2019 Patient not on any diabetic medications per med rec BSG stable on admission, will not place on SSI at present Continue gabapentin 200 mg 3 times daily HTN/HLD/CAD previous AK last in March 2019 status post 2 drug-eluting stents into LAD Continue aspirin 81 mg, clopidogrel 75 mg, lisinopril 20 mg, metoprolol succinate 25 mg, isosorbide mononitrate ER 30 mg, rosuvastatin 20 mg Patient is more than a year out of last PCI. Per cardiology, would not eliminate clopidogrel long-term since he had his STEMI after this was discontinued in the past. Consideration for reducing to 75 mg every other day GERD Continue famotidine Dulera twice daily FEN/GI: Heart healthy diet, n.p.o. after midnight DVT prophylaxis: SCD's CODE STATUS: Conditional code --DNI only Dispo: Telemetry History of Present Illness Chief Complaint: Chest pain Primary Care Provider: Isaac Mendoza MD 75-year-old male with past medical history type 2 diabetes, hypertension, coronary disease, dyslipidemia, peripheral artery disease, GERD, previous AK last in March 2019 status post 2 drug-eluting stents into LAD presents with concerns of chest pain. Patient notes chest pain over the previous 2 days with activity such as taking out the garbage. Symptoms are for the duration of exertion, but are resolved almost immediately with rest. Pain described as sharp, nonradiating. 6 out of 10 on pain scale. Patient took nitro with resolution of symptoms as well. Patient notes that this feels similar to AK last year, but perhaps not as bad pain. Patient with associated shortness of breath, however denies any other palpitations, diaphoresis, edema, syncope or near syncope. Patient distantly denies any fevers, chills, sweats, nausea, vomiting, diarrhea, URI symptoms, abdominal pain, urinary symptoms, known sick contacts or recent travel anywhere. Patient with no other acute concerns or complaints. Pertinent labs: CBC CMP largely unremarkable. Troponin WNL 0.025 EKG: Sinus rhythm with 1st degree A-V block. Old septal infarct. No ST elevations noted. Chest x-ray: No acute cardiopulmonary findings. No significant change in appearance of the chest. ER course: Nitroglycerin paste 2 inch Allergies Allergy/AdvReac Type Severity Reaction Status Date / Time Sulfa (Sulfonamide Allergy Intermediate HIVES Verified 06/13/20 18:56 Antibiotics) pravastatin AdvReac Mild MUSCLE Verified 06/13/20 18:56 ACHES simvastatin AdvReac Mild MUSCLE Verified 06/13/20 18:56 ACHES Home Medications Medication Instructions Recorded Confirmed Type coenzyme Q10 100 mg capsule 100 mg PO BID cap 03/12/18 06/15/20 History OneTouch Ultra Blue Test Strip #50 ea NS 12/23/18 06/15/20 Rx OneTouch Ultra2 Meter #1 ea NS 12/23/18 06/15/20 Rx OneTouch UltraSoft Lancets #100 ea NS 12/23/18 06/15/20 Rx rosuvastatin 20 mg tablet 20 mg PO HS #90 tab 06/15/19 06/15/20 Rx hydrocortisone 2.5 % topical cream 1 applic VT USEASDIRECTD #1 gm 06/18/19 06/15/20 History with perineal applicator fluticasone propionate 50 2 sprays INTNAS QAM #9.9 ml 09/06/19 06/15/20 Rx mcg/actuation nasal spray,suspension montelukast 10 mg tablet 10 mg PO HS #90 tab 10/31/19 06/15/20 Rx clopidogrel 75 mg tablet 75 mg PO QAM tab 12/26/19 06/15/20 History gabapentin 100 mg capsule 200 mg PO TID #540 cap 02/06/20 06/15/20 Rx dutasteride 0.5 mg capsule 0.5 mg PO DAILY #90 cap 03/13/20 06/15/20 Rx famotidine 20 mg tablet 20 mg PO BID #180 tab 03/22/20 06/15/20 Rx nitroglycerin 0.4 mg sublingual 0.4 mg SUBLINGUAL .COMPLEX #25 tab 05/01/20 06/15/20 Rx tablet azelastine 0.15 % (205.5 mcg) 2 spray INTNAS HS #30 ml 06/04/20 06/15/20 Rx nasal spray aspirin 81 mg PO QAM 06/13/20 06/15/20 History lisinopril 20 mg PO QAM 06/13/20 06/15/20 History isosorbide mononitrate 60 mg PO QAM #30 tab 06/14/20 06/15/20 Rx metoprolol succinate 50 mg PO QAM #30 tab 06/14/20 06/15/20 Rx Past Med/Surg History Medical History (Updated 06/14/20 @ 10:12 by Robson Rehman MD) Acquired deviated nasal septum Actinic keratosis Anosmia Arthritis Benign colonic polyp Benign localized hyperplasia of prostate with urinary obstruction BRBPR (bright red blood per rectum) Calculus of kidney Carotid artery plaque No significant stenosis 2019 ultrasound Dizziness Dyslipidemia GERD (gastroesophageal reflux disease) Gross hematuria Hemorrhoids History of cataract HLD (hyperlipidemia) Hypertension Impaired fasting glucose Inguinal hernia Keloid scar Lumbar radiculopathy Microscopic hematuria Nephrolithiasis Obesity Osteoarthritis PAD (peripheral artery disease) Chronically on Plavix Paresthesia of right arm Pneumonia Polyneuropathy Retention of urine Sacroiliitis Sciatica Spinal stenosis of lumbar region Vertigo Surgical History (Updated 06/14/20 @ 10:12 by Robson Rehman MD) H/O cataract extraction H/O transurethral resection of prostate History of adenoidectomy History of cataract surgery LEFT CATARACT History of colonoscopy History of esophagogastroduodenoscopy (EGD) History of herniorrhaphy RT/LEFT INGUINAL History of inguinal herniorrhaphy History of tonsillectomy History of tooth extraction History of umbilical hernia repair Nasal polyps REMOVED Presence of stent in LAD coronary artery (2007) S/P coronary artery stent placement S/P right coronary artery (RCA) stent placement (2013) Family History Grandmother Family history of diabetes mellitus Father Coronary heart disease Myocardial infarction Mother Coronary heart disease Denies family history of Ovarian cancer Prostate cancer Breast cancer Colorectal cancer Social History Smoking Status: Former smoker Tobacco Type: Cigarettes Age Started Using Tobacco: 38; Age Quit Using Tobacco: 58; packs per day: 1.5; Years Smoked: 20; Cigarettes Per Day: 40; Number of Years Since Quit: 15; Second Hand Exposure: No (REMOTE HISTORY); Hx Alcohol Use: No Hx Substance Use: No Preferred Language: Grenadian Communication Ability: Effective Visual Impairment: No Limitations Hearing Ability: Use of Hearing Aid Cosmetology Instructor Required: No Beliefs That Will Affect Care: None marital status: / Current Living Situation: Alone current occupational status: retired 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 Feels Safe at Home: Yes Childhood Exposure to Second-Hand Smoke: Yes caffeine: No Dental Care, Regularly: No Physical Activity Frequency: 1-2 Times per Week Physical Activity Frequency Comment: cardiac rehab, treadmill, weights 60minutes Seatbelt Use: always Sunscreen Use: Yes Assistive Devices: Denture - Upper, Denture - Lower and Hearing Aid - Bilateral Review of Systems Review of Systems: All systems reviewed & are unremarkable except as noted in HPI & below Physical Exam Constitutional: WD/WN, vitals as above Eyes: PERRL, conjunctivae normal, anicteric sclerae ENMT: external ear and nose normal, oropharynx normal Respiratory: normal respiratory effort, lungs clear to auscultation Cardiovascular: RRR, no murmur, no edema Gastrointestinal (Abdomen): normal bowel sounds, soft, nontender, no hepatosplenomegaly Skin: no rashes, warm and dry Psychiatric: A+Ox3, euthymic affect Results & Data Results & Data ([facility]) Vital Signs (Past 12 Hours) Vital Signs Temp Pulse Pulse Resp BP BP Pulse Ox 06/13/20 18:30 68 17 145/89 H 96 06/13/20 18:21 67 18 138/91 97 06/13/20 18:00 73 17 138/91 98 06/13/20 16:45 36.4 C L 82 18 203/98 H 97 Laboratory Results Laboratory Results - last 24 hr 06/13/20 06/13/20 06/13/20 17:45 17:45 17:45 WBC 6.46 RBC 4.59 L Hgb 14.2 Hct 42.0 MCV 91.5 MCH 30.9 MCHC 33.8 RDW Std Deviation 42.9 RDW Coeff of Rogelio 12.9 Plt Count 181 MPV 9.7 Immature Gran % (Auto) 0.3 Neut % (Auto) 66.2 Lymph % (Auto) 16.3 [place] % (Auto) 12.8 Eos % (Auto) 3.9 Baso % (Auto) 0.5 Neut # (Auto) 4.28 Lymph # (Auto) 1.05 L [place] # (Auto) 0.83 H Eos # (Auto) 0.25 Baso # (Auto) 0.03 Immature Gran # (Auto) 0.02 PT 11.2 INR 1.1 APTT 27.0 PTT Ratio 1.0 Sodium 138 Potassium 4.1 Chloride 107 Carbon Dioxide 26 Anion Gap 5.0 BUN 16 Creatinine 0.90 Est Cr Clr Drug Dosing 85.8 Est GFR ( Amer) 95.1 Est GFR (Non-Af Amer) 82.1 BUN/Creatinine Ratio 17.6 Glucose 98 Calcium 8.6 Magnesium 2.4 Total Bilirubin 0.6 AST 20 ALT 28 Alkaline Phosphatase 74 Troponin I 0.025 Total Protein 6.8 Albumin 3.5 Globulin 3.3 Albumin/Globulin Ratio 1.1 Lipase 163 Code Status & VTE Plan Code Status DNI only Supervising Physician Co-Signing Physician Notes Attending addendum: I have physically seen this patient, have supervised the medical residents activities, and agree with the H&P unless as otherwise noted. Assessment and Plan: Chest pain/CAD/hypertension/status post drug-eluting stents in the LAD x2- The patient will be admitted to telemetry for serial cardiac enzymes, serial EKG's, cardiac rhythm monitoring and a 2-D echocardiogram with Dopplers. Check hemoglobin A1c and fasting lipid panel Dose full aspirin 324 mg for today, then continue 81 mg daily Continue clopidogrel 75 mg daily, lisinopril 20 mg daily, metoprolol succinate 25 mg daily, isosorbide mononitrate ER 30 mg daily Consult cardiology Hyperlipidemia- Continue rosuvastatin 20 mg daily Diabetes mellitus- Placed on Accu-Cheks before meals and at bedtime with NovoLog coverage per scale Diabetic peripheral neuropathy- Continue gabapentin 200 mg p.o. 3 times daily Remainder of orders and notations as noted Resident Activity Tracking Resident Involvement: Resident Care Provided Care Provided: Adult Hospital Medicine
[2020-06-13] MEDS ORDERED: ASPIRIN 81 MG CHEW PO STA (20:30)
[2020-06-13] MEDS ORDERED: HYDROCORTISONE HC 2.5% CRM 30GM TUBE EXT PRN (21:44)
[2020-06-13] MEDS ORDERED: ONDANSETRON INJ 2 MG/ML 2 ML VIAL IV PRN (21:44)
[2020-06-13] MEDS ORDERED: NON-FORMULARY MEDICATION (Coenzyme Q10 100 mg capsule) PO SCH (21:44)
[2020-06-13] MEDS ORDERED: MoRPHine SULFATE 2 MG/ML CARP IV PRN (21:44)
[2020-06-13] MEDS ORDERED: NITROGLYCERIN SL 0.4 MG/TAB TAB SL PRN (21:44)
[2020-06-13] MEDS ORDERED: ACETAMINOPHEN 325 MG TAB PO PRN (21:44)
[2020-06-13] MEDS ORDERED: ALUMINUM/MAGNESIUM SUSP 30 ML UDC PO PRN (21:44)
[2020-06-13] MEDS ORDERED: MONTELUKAST SODIUM 10 MG TABLET PO SCH (22:00)
[2020-06-13] MEDS ORDERED: ROSUVASTATIN CALCIUM 20 MG TAB PO SCH (22:30)
[2020-06-13] MEDS: FAMOTIDINE 20 MG TAB PO SCH (22:38)
[2020-06-13] MEDS: GABAPENTIN 100 MG CAP PO SCH (22:39)
[2020-06-14 04:41] LABS: Basophils # (auto) 0.02 K/uL (0-0.2); Basophils % (auto) 0.4 %; Eosinophils # (auto) 0.24 K/uL (0-0.5); Eosinophils % (auto) 4.6 %; Hematocrit (blood only) 40.2 % (42-52); Hemoglobin 13.4 g/dL (14.0-18.0); Immature Granulocytes # (auto) 0.01 K/uL (0.00-0.02); Immature Granulocytes % (auto) 0.2 %; Lymphocytes # (auto) 0.99 K/uL (1.2-3.4); Lymphocytes % (auto) 18.9 %; Mean Corpuscular Hemoglobin 30.7 pg (25-34); Mean Corpuscular Hgb Conc 33.3 g/dL (32-36); Mean Platelet Volume 9.4 fL (7.4-10.4); Monocytes # (auto) 0.88 K/uL (0.11-0.59); Monocytes % (auto) 16.8 %; Neutrophils % (auto) 59.1 %; Platelet Count 187 K/uL (130-400); Red Blood Count 4.37 M/uL (4.7-6.1); White Blood Count 5.24 K/uL (4.8-10.8)
[2020-06-14 04:59] LABS: Calcium 8.3 mg/dl (8.5-10.1); Creatinine Clr Calc Pharmacy 94.8 ml/min; Est GFR (African American) 99.4; Est GFR (Non-African American) 85.7; Potassium 3.8 mmol/L (3.5-5.1)
[2020-06-14 05:04] LABS: Troponin I 0.036 ng/ml (0-0.045)
[2020-06-14 07:48] LABS: Estimated Average Glucose 126 mg/dl
[2020-06-14] MEDS: GABAPENTIN 100 MG CAP PO SCH ×3 (08:54→13:20)
[2020-06-14] MEDS: FAMOTIDINE 20 MG TAB PO SCH (08:54)
[2020-06-14] MEDS ORDERED: lisinopril 20 MG TAB PO SCH (09:00)
[2020-06-14] MEDS ORDERED: ISOSORBIDE MONO EXTENDED REL 30 MG TABCR PO SCH (09:00)
[2020-06-14] MEDS ORDERED: CLOPIDOGREL BISULFATE 75 MG TAB PO SCH (09:00)
[2020-06-14] MEDS ORDERED: PNEUMOCOCCAL POLYSACCHARIDES 25 MCG/0.5 ML VIAL/SYR IM ONE (09:00)
[2020-06-14] MEDS ORDERED: ASPIRIN 81 MG ECTAB PO SCH (09:00)
[2020-06-14] MEDS ORDERED: METOPROLOL SUCC 25MG EXT REL TAB PO SCH (09:00)
[2020-06-14] MEDS ORDERED: FLUTICASONE PROPIONATE NA SPR 16 GM BTL NAE SCH (09:00)
[2020-06-14] MEDS ORDERED: PNEUMOCOCCAL ADMINISTRATION CHARGE ONE (09:00)
--- NOTE | 2020-06-14 09:25 | XCELERA ---
[id number]
--- NOTE | 2020-06-14 10:15 | Cardiology Consultation ---
Date of Consultation June 14, 2020 Assessment & Plan (1) Exertional angina: (2) Coronary artery disease: (3) S/P coronary artery stent placement: (4) Hypertension: (5) Dyslipidemia: ASSESSMENT/PLAN: 1. Angina: Symptoms consistent with angina and has known underlying coronary artery disease. Recommended cardiac catheterization. Risks and benefits were discussed with him in detail. He was made aware that CT surgery is not available at this facility and consented to undergo the procedure. Continue aspirin, Plavix, beta-miguelangel, nitrate, and statin therapy. Addendum: Patient underwent cardiac catheterization was found to have patent LAD and RCA stents. Diagonal, circumflex, and marginal vessel lesions appeared to be stable. Angina may have been due to the fact that he is participating in more strenuous activities now following back surgery. Titrate beta-miguelangel and nitrate therapy for medical management and reassess as an outpatient. The most severe lesion was the diagonal through prior LAD stent, which could pose more risk for intervention and therefore medical therapy was first recommended and could consider further intervention if medical therapy fails. 2. CAD s/p LAD and RCA PCI: Currently chest pain-free. Continue medical therapy as noted above. 3. Hypertension: Blood pressure was elevated. Titrate beta-miguelangel nitrate therapy. Titrate other antihypertensive as necessary to optimize blood pressure control. 4. Dyslipidemia: Continue high-intensity statin therapy. 5. Disposition: Cardiac catheterization was recommended. Following catheterization, can be discharged home and follow-up with his primary mica splitter, Dr. Seals in the next few weeks to reassess medical therapy response. Patient care communicated with primary hospitalist, Dr. Hernandez. Highly complex medical issues. Thank you for allowing me to participate in the care of your patient. Please call for any other questions or concerns. Sincerely, Ronald Rehman M.D. History of Present Illness Reason for Consultation: Chest pain Requesting Physician: Dr. Urena Attending Physician: Osbaldo Hernandez History of Present Illness Mr. Bee is a pleasant 75-year-old gentleman with a history significant for CAD s/p multiple PCI, LAD STEMI, type 2 diabetes, hypertension, dyslipidemia, and left lower extremity peripheral arterial disease. His primary mica splitter is Dr. Seals. His cardiac history is notable for prior distal RCA stent and then acute WY on 03/08/2019 for which he underwent cardiac catheterization and placement of 2 mid LAD stents of 3 x 15 mm each (brayden). He was also notable to have D1 of 99%, distal circumflex of 60%, small OM1 60-70%, mid RCA 20-30%, and patent distal RCA stent. This was done at [facility] by Dr. Larose. He has done well from a cardiac standpoint until recently. He had been rather sedentary for quite some time due to severe spinal stenosis. After undergoing back surgery approximately 5 weeks ago, he has become more active for the first time in quite some time. He has been hunting, including walking up hills. Over the past 3-4 days, he has noted a sharp substernal chest discomfort that does not radiate, occurring only with exertion, while hunting. There is associated shortness of breath but no diaphoresis. Symptoms resolved quickly within a few minutes, while resting. On 1 occasion he took nitroglycerin x1 which helped improve his chest discomfort. Symptoms were similar to prior WY however during his WY, he also had radiation to the jaw and the pain was more severe. His last episode was yesterday morning. He was chest pain-free at the time of today's visit, earlier this morning. He was diagnosed with left lower extremity peripheral arterial disease in approximately 2007 during angiogram. He states that was distal lesion and was having claudication. Claudication has improved over time and now occurs only occasionally with longer distances. He denies recent fevers, chills, bleeding such as melena, hematochezia, or hematuria. He denies syncope, near-syncope, palpitations, shortness of breath at rest, or orthopnea. Review of systems: As above. Review of systems otherwise negative/unremarkable. Family history: Father had CABG in his 70s and at the age of 86. Mother had some form of heart disorder and at the age of 103. Social history: He quit smoking in 2005. No alcohol. No drugs. He is a since 2018. Four children however 1 son in 2018 secondary to cancer. He has 2 sons and 1 daughter living. 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 He was unaccompanied in his hospital room. Allergies Allergy/AdvReac Type Severity Reaction Status Date / Time Sulfa (Sulfonamide Allergy Intermediate HIVES Verified 06/13/20 18:56 Antibiotics) pravastatin AdvReac Mild MUSCLE Verified 06/13/20 18:56 ACHES simvastatin AdvReac Mild MUSCLE Verified 06/13/20 18:56 ACHES Home Medications Medication Instructions Recorded Confirmed Type coenzyme Q10 100 mg capsule 100 mg PO BID cap 03/12/18 06/13/20 History OneTouch Ultra Blue Test Strip #50 ea NS 12/23/18 04/20/20 Rx OneTouch Ultra2 Meter #1 ea NS 12/23/18 04/20/20 Rx OneTouch UltraSoft Lancets #100 ea NS 12/23/18 04/20/20 Rx rosuvastatin 20 mg tablet 20 mg PO HS #90 tab 06/15/19 06/13/20 Rx hydrocortisone 2.5 % topical cream 1 applic AL USEASDIRECTD #1 gm 06/18/19 06/13/20 History with perineal applicator fluticasone propionate 50 2 sprays INTNAS QAM #9.9 ml 09/06/19 06/13/20 Rx mcg/actuation nasal spray,suspension montelukast 10 mg tablet 10 mg PO HS #90 tab 10/31/19 06/13/20 Rx clopidogrel 75 mg tablet 75 mg PO QAM tab 12/26/19 06/13/20 History gabapentin 100 mg capsule 200 mg PO TID #540 cap 02/06/20 06/13/20 Rx dutasteride 0.5 mg capsule 0.5 mg PO DAILY #90 cap 03/13/20 06/13/20 Rx famotidine 20 mg tablet 20 mg PO BID #180 tab 03/22/20 06/13/20 Rx nitroglycerin 0.4 mg sublingual 0.4 mg SUBLINGUAL .COMPLEX #25 tab 05/01/20 06/13/20 Rx tablet azelastine 0.15 % (205.5 mcg) 2 spray INTNAS HS #30 ml 06/04/20 06/13/20 Rx nasal spray aspirin 81 mg PO QAM 06/13/20 06/13/20 History lisinopril 20 mg PO QAM 06/13/20 06/13/20 History isosorbide mononitrate 60 mg PO QAM #30 tab 06/14/20 Rx metoprolol succinate 50 mg PO QAM #30 tab 06/14/20 Rx Patient History Medical History (Updated 06/14/20 @ 10:12 by Robson Rehman MD) Acquired deviated nasal septum Actinic keratosis Anosmia Arthritis Benign colonic polyp Benign localized hyperplasia of prostate with urinary obstruction BRBPR (bright red blood per rectum) Calculus of kidney Carotid artery plaque No significant stenosis 2019 ultrasound Dizziness Dyslipidemia GERD (gastroesophageal reflux disease) Gross hematuria Hemorrhoids History of cataract HLD (hyperlipidemia) Hypertension Impaired fasting glucose Inguinal hernia Keloid scar Lumbar radiculopathy Microscopic hematuria Nephrolithiasis Obesity Osteoarthritis PAD (peripheral artery disease) Chronically on Plavix Paresthesia of right arm Pneumonia Polyneuropathy Retention of urine Sacroiliitis Sciatica Spinal stenosis of lumbar region Vertigo Surgical History (Updated 06/14/20 @ 10:12 by Robson Rehman MD) H/O cataract extraction H/O transurethral resection of prostate History of adenoidectomy History of cataract surgery LEFT CATARACT History of colonoscopy History of esophagogastroduodenoscopy (EGD) History of herniorrhaphy RT/LEFT INGUINAL History of inguinal herniorrhaphy History of tonsillectomy History of tooth extraction History of umbilical hernia repair Nasal polyps REMOVED Presence of stent in LAD coronary artery (2007) S/P coronary artery stent placement S/P right coronary artery (RCA) stent placement (2013) Family History Grandmother Family history of diabetes mellitus Father Coronary heart disease Myocardial infarction Mother Coronary heart disease Denies family history of Ovarian cancer Prostate cancer Breast cancer Colorectal cancer Social History Smoking Status: Former smoker Tobacco Type: Cigarettes Age Started Using Tobacco: 38; Age Quit Using Tobacco: 58; packs per day: 1.5; Years Smoked: 20; Cigarettes Per Day: 40; Number of Years Since Quit: 15; Second Hand Exposure: No (REMOTE HISTORY); Hx Alcohol Use: No Hx Substance Use: No Preferred Language: Swazi Communication Ability: Effective Visual Impairment: No Limitations Hearing Ability: Use of Hearing Aid Character Artist Required: No Beliefs That Will Affect Care: None marital status: / Current Living Situation: Alone current occupational status: retired 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 Feels Safe at Home: Yes Childhood Exposure to Second-Hand Smoke: Yes caffeine: No Dental Care, Regularly: No Physical Activity Frequency: 1-2 Times per Week Physical Activity Frequency Comment: cardiac rehab, treadmill, weights 60minutes Seatbelt Use: always Sunscreen Use: Yes Assistive Devices: Denture - Upper, Denture - Lower and Hearing Aid - Bilateral Physical Exam Physical Exam: Gen.: No acute distress. Alert and oriented. HEENT: Anicteric sclera. Neck: No JVD. No bruits. Normal carotid upstrokes bilaterally. Cardiac: PMI was nonpalpable. No ventricular heave. Regular. Normal S1-S2. No murmurs, rubs, or gallops. Pulmonary: Clear to auscultation bilaterally without wheezes, rales, or rhonchi. Abdomen: Soft, nontender, nondistended, with normoactive bowel sounds. No bruits noted. Extremities: 2+ radial pulses bilaterally. 2+ posterior tibialis pulses bi laterally. No edema or cyanosis. Psychiatric: Affect appears appropriate. Results & Data ([facility]) Vital Signs (Past 12 Hours) Vital Signs Temp Pulse Pulse Resp BP BP BP 06/14/20 07:31 36.6 C 64 18 156/102 H 06/14/20 04:05 36.9 C 58 L 18 143/84 H 06/14/20 00:20 36.8 C 06/14/20 00:08 72 23 135/80 06/14/20 00:00 72 Pulse Ox 06/14/20 07:31 95 06/14/20 04:05 96 06/14/20 00:20 06/14/20 00:08 93 06/14/20 00:00 Laboratory Results Laboratory Results - last 24 hr 06/13/20 06/13/20 06/13/20 17:45 17:45 17:45 WBC 6.46 RBC 4.59 L Hgb 14.2 Hct 42.0 MCV 91.5 MCH 30.9 MCHC 33.8 RDW Std Deviation 42.9 RDW Coeff of Rogelio 12.9 Plt Count 181 MPV 9.7 Immature Gran % (Auto) 0.3 Neut % (Auto) 66.2 Lymph % (Auto) 16.3 Gosper % (Auto) 12.8 Eos % (Auto) 3.9 Baso % (Auto) 0.5 Neut # (Auto) 4.28 Lymph # (Auto) 1.05 L Gosper # (Auto) 0.83 H Eos # (Auto) 0.25 Baso # (Auto) 0.03 Immature Gran # (Auto) 0.02 PT 11.2 INR 1.1 APTT 27.0 PTT Ratio 1.0 Sodium 138 Potassium 4.1 Chloride 107 Carbon Dioxide 26 Anion Gap 5.0 BUN 16 Creatinine 0.90 Est Cr Clr Drug Dosing 85.8 Est GFR ( Amer) 95.1 Est GFR (Non-Af Amer) 82.1 BUN/Creatinine Ratio 17.6 Glucose 98 POC Glucose Estimat Average Glucose Hemoglobin A1c Calcium 8.6 Magnesium 2.4 Total Bilirubin 0.6 AST 20 ALT 28 Alkaline Phosphatase 74 Troponin I 0.025 Total Protein 6.8 Albumin 3.5 Globulin 3.3 Albumin/Globulin Ratio 1.1 Triglycerides Cholesterol LDL Cholesterol, Calc VLDL Cholesterol, Calc HDL Cholesterol Cholesterol/HDL Ratio Lipase 163 Nasal Screen MRSA (PCR) SARS-CoV-2 Ag (Rapid) 06/13/20 06/13/20 06/13/20 20:02 21:42 22:52 WBC RBC Hgb Hct MCV MCH MCHC RDW Std Deviation RDW Coeff of Rogelio Plt Count MPV Immature Gran % (Auto) Neut % (Auto) Lymph % (Auto) Gosper % (Auto) Eos % (Auto) Baso % (Auto) Neut # (Auto) Lymph # (Auto) Gosper # (Auto) Eos # (Auto) Baso # (Auto) Immature Gran # (Auto) PT INR APTT PTT Ratio Sodium Potassium Chloride Carbon Dioxide Anion Gap BUN Creatinine Est Cr Clr Drug Dosing Est GFR ( Amer) Est GFR (Non-Af Amer) BUN/Creatinine Ratio Glucose POC Glucose 96 Estimat Average Glucose Hemoglobin A1c Calcium Magnesium Total Bilirubin AST ALT Alkaline Phosphatase Troponin I Total Protein Albumin Globulin Albumin/Globulin Ratio Triglycerides Cholesterol LDL Cholesterol, Calc VLDL Cholesterol, Calc HDL Cholesterol Cholesterol/HDL Ratio Lipase Nasal Screen MRSA (PCR) Negative SARS-CoV-2 Ag (Rapid) Negative 06/13/20 06/14/20 06/14/20 23:53 04:30 04:30 WBC 5.24 RBC 4.37 L Hgb 13.4 L Hct 40.2 L MCV 92.0 MCH 30.7 MCHC 33.3 RDW Std Deviation 44.0 RDW Coeff of Rogelio 13.0 Plt Count 187 MPV 9.4 Immature Gran % (Auto) 0.2 Neut % (Auto) 59.1 Lymph % (Auto) 18.9 Gosper % (Auto) 16.8 Eos % (Auto) 4.6 Baso % (Auto) 0.4 Neut # (Auto) 3.10 Lymph # (Auto) 0.99 L Gosper # (Auto) 0.88 H Eos # (Auto) 0.24 Baso # (Auto) 0.02 Immature Gran # (Auto) 0.01 PT INR APTT PTT Ratio Sodium 141 Potassium 3.8 Chloride 109 H Carbon Dioxide 29 Anion Gap 3.0 BUN 15 Creatinine 0.81 Est Cr Clr Drug Dosing 94.8 Est GFR ( Amer) 99.4 Est GFR (Non-Af Amer) 85.7 BUN/Creatinine Ratio 19.0 Glucose 83 POC Glucose Estimat Average Glucose Hemoglobin A1c Calcium 8.3 L Magnesium Total Bilirubin AST ALT Alkaline Phosphatase Troponin I 0.037 0.036 Total Protein Albumin Globulin Albumin/Globulin Ratio Triglycerides 144 Cholesterol 138 LDL Cholesterol, Calc 64 VLDL Cholesterol, Calc 29 HDL Cholesterol 45 Cholesterol/HDL Ratio 3 Lipase Nasal Screen MRSA (PCR) SARS-CoV-2 Ag (Rapid) 06/14/20 06/14/20 04:30 06:19 WBC RBC Hgb Hct MCV MCH MCHC RDW Std Deviation RDW Coeff of Rogelio Plt Count MPV Immature Gran % (Auto) Neut % (Auto) Lymph % (Auto) Gosper % (Auto) Eos % (Auto) Baso % (Auto) Neut # (Auto) Lymph # (Auto) Gosper # (Auto) Eos # (Auto) Baso # (Auto) Immature Gran # (Auto) PT INR APTT PTT Ratio Sodium Potassium Chloride Carbon Dioxide Anion Gap BUN Creatinine Est Cr Clr Drug Dosing Est GFR ( Amer) Est GFR (Non-Af Amer) BUN/Creatinine Ratio Glucose POC Glucose 79 Estimat Average Glucose 126 Hemoglobin A1c 6.0 H Calcium Magnesium Total Bilirubin AST ALT Alkaline Phosphatase Troponin I Total Protein Albumin Globulin Albumin/Globulin Ratio Triglycerides Cholesterol LDL Cholesterol, Calc VLDL Cholesterol, Calc HDL Cholesterol Cholesterol/HDL Ratio Lipase Nasal Screen MRSA (PCR) SARS-CoV-2 Ag (Rapid) Diagnostic Findings Telemetry personally reviewed: Sinus rhythm. No arrhythmia. ECG personally reviewed: ECG 06/13/2020 at 4:52 p.m.: Sinus rhythm with first-degree AV block at 74 beats per minute. Left axis deviation. Possible septal infarct. 06/14/2020 at 6:43 a.m.: Sinus bradycardia with first-degree AV block at 59 beats per minute. PACs. Septal infarct. Echo 06/14/2020: Normal LV size and systolic function. EF 55-60%. Possible subtle hypokinesis of the apical anterolateral wall. No LVH. Mild to moderate MR. Mild AI. Compared to prior study on 03/09/2019, LAD wall motion abnormality has significantly improved. Medications Administered Current Inpatient Medications Acetaminophen (Acetaminophen 325 Mg Tab) 650 mg PO Q4H PRN PRN Reason: Pain or Fever Stop: 07/13/20 22:07 Al Hydrox/Mg Hydrox/Simethicone (Aluminum/Magnesium Susp 30 Ml Udc) 15 ml PO Q4H PRN PRN Reason: Dyspepsia Stop: 07/13/20 22:07 Aspirin (Aspirin 81 Mg Ectab) 81 mg PO [facility] Stop: 07/14/20 08:59 Last Admin: 06/14/20 08:55 Dose: 81 mg Documented by: Clopidogrel Bisulfate (Clopidogrel Bisulfate 75 Mg Tab) 75 mg PO [facility] Stop: 07/14/20 08:59 Last Admin: 06/14/20 08:55 Dose: 75 mg Documented by: Famotidine (Famotidine 20 Mg Tab) 20 mg PO BID [facility] Stop: 07/13/20 22:07 Last Admin: 06/14/20 08:54 Dose: 20 mg Documented by: Fluticasone Propionate (Fluticasone Propionate Na Spr 16 Gm Btl) 2 sprays KEI [facility] Stop: 07/14/20 08:59 Last Admin: 06/14/20 08:55 Dose: Not Given Documented by: Gabapentin (Gabapentin 100 Mg Cap) 200 mg PO TID [facility] Stop: 07/13/20 22:07 Last Admin: 06/13/20 22:39 Dose: 200 mg Documented by: Hydrocortisone (Hydrocortisone Hc 2.5% Crm 30gm Tube) 1 appln EXT DAILY PRN PRN Reason: hemorrhoids Stop: 07/13/20 21:43 Sodium Chloride (Nss 1000ml) 1,000 mls @ 125 mls/hr IV .Q8H [facility] Stop: 06/14/20 16:00 Isosorbide Mononitrate (Isosorbide Gosper Extended Rel 60 Mg Tabcr) 60 mg PO [facility] Stop: 07/15/20 08:59 Lisinopril (Lisinopril 20 Mg Tab) 20 mg PO [facility] Stop: 07/14/20 08:59 Last Admin: 06/14/20 08:54 Dose: 20 mg Documented by: Metoprolol Succinate (Metoprolol Succ 50mg Ext Rel Tab) 50 mg PO [facility] Stop: 07/15/20 08:59 Miscellaneous (Azelastine 0.15 %: Order Awaiting Action) 1 ea N/A [facility] Stop: 07/14/20 07:59 Last Admin: 06/14/20 09:01 Dose: Not Given Documented by: Miscellaneous (Dutasteride [Avodart] 0.5 Mg Capsule: Order Awaiting Action) 1 ea N/A [facility] Stop: 07/14/20 07:59 Last Admin: 06/14/20 09:01 Dose: Not Given Documented by: Montelukast Sodium (Montelukast Sodium 10 Mg Tablet) 10 mg PO [facility] Stop: 07/13/20 22:07 Last Admin: 06/13/20 22:39 Dose: 10 mg Documented by: Morphine Sulfate (Morphine Sulfate 2 Mg/Ml Carp) 2 mg IV Q4H PRN PRN Reason: Chest Pain Stop: 06/27/20 22:07 Nitroglycerin (Nitroglycerin Sl 0.4 Mg/Tab Tab) 0.4 mg SL UD PRN PRN Reason: Chest Pain Stop: 07/13/20 22:07 Ondansetron HCl (Ondansetron Inj 2 Mg/Ml 2 Ml Vial) 4 mg IV Q6H PRN PRN Reason: Nausea Stop: 07/13/20 22:07 Rosuvastatin Calcium (Rosuvastatin Calcium 20 Mg Tab) 20 mg PO [facility] Stop: 07/13/20 22:29 Last Admin: 06/13/20 22:39 Dose: 20 mg Documented by: PG Care Time/CCT Total # of Minutes Spent Total Time Spent with Patient: Total time spent is greater than 50% in coordination of care (as documented) at patient's floor/unit and/or counseling patient: Coding Level of Care Code 91239 Office/Outpt Visit, Est Diagnoses Exertional angina I20.8 Coronary artery disease I25.10 S/P coronary artery stent placement Z95.5 Hypertension I10 Hypertension type: unspecified Dyslipidemia E78.5 (1) Hypertension Hypertension type: unspecified Qualified Code(s): I10 - Essential (primary) hypertension
[2020-06-14] MEDS ORDERED: niCARdipine HCL INJ 2.5 MG/ML 10 ML AMP ONE (10:26)
[2020-06-14] MEDS ORDERED: HEPARIN (PORCINE) 1000 UNIT/ML 10 ML (CATH LAB USE ONLY) ONE (10:26)
[2020-06-14] MEDS ORDERED: NITROGLYCERIN/D5W 100MCG/ML 20ML SYR ONE (10:27)
[2020-06-14] MEDS ORDERED: fentaNYL citrate 100 MCG/2 ML VIAL ONE (10:27)
[2020-06-14] MEDS ORDERED: MIDAZOLAM HCL 1 MG/ML 2ML VIAL ONE (10:27)
--- NOTE | 2020-06-14 10:54 | Pre Anesthesia Assessment ---
Date of Service June 14, 2020 Pre Sedation Assessment Vital Signs Temp Pulse Pulse Resp BP BP BP 06/14/20 07:31 36.6 C 64 18 156/102 H 06/14/20 04:05 36.9 C 58 L 18 143/84 H 06/14/20 00:20 36.8 C 06/14/20 00:08 72 23 135/80 06/14/20 00:00 72 06/13/20 22:00 58 L 14 06/13/20 21:50 55 L 19 148/81 H 06/13/20 21:48 68 17 155/89 H 06/13/20 21:45 63 16 177/88 H 06/13/20 21:43 64 19 189/100 H 06/13/20 21:40 36.7 C 69 18 189/100 H 06/13/20 21:35 74 16 174/105 H 06/13/20 20:31 62 14 06/13/20 20:30 61 15 155/87 H 06/13/20 20:01 67 14 06/13/20 20:00 65 13 147/90 H 06/13/20 19:31 66 15 06/13/20 19:30 67 14 151/89 H 06/13/20 19:01 66 15 06/13/20 19:00 67 17 136/80 06/13/20 18:30 68 17 145/89 H 06/13/20 18:21 67 18 138/91 06/13/20 18:00 73 17 138/91 06/13/20 16:45 36.4 C L 82 18 203/98 H Pulse Ox 06/14/20 07:31 95 06/14/20 04:05 96 06/14/20 00:20 06/14/20 00:08 93 06/14/20 00:00 06/13/20 22:00 94 06/13/20 21:50 96 06/13/20 21:48 95 06/13/20 21:45 97 06/13/20 21:43 97 06/13/20 21:40 97 06/13/20 21:35 99 06/13/20 20:31 95 06/13/20 20:30 95 06/13/20 20:01 95 06/13/20 20:00 95 06/13/20 19:31 06/13/20 19:30 06/13/20 19:01 06/13/20 19:00 06/13/20 18:30 96 06/13/20 18:21 97 06/13/20 18:00 98 06/13/20 16:45 97 Cardiovascular RRR, no murmur, no edema Respiratory normal respiratory effort, lungs clear to auscultation Pre-Sedation Airway Assessment Smoking Status: Former smoker Hx Sleep Apnea: No Hx Difficult Intubation: No Short, Thick Neck: No Thyromental Distance: > or= 3.5 Finger Breadths Oral Cavity: + Dentures Mallampati Class: II ASA: ASA3 NPO Status Date of Last Intake of Fluids: 06/13/20 Time of Last Intake of Fluids: 22:00 Date of Last Intake of Solid Food: 06/13/20 Time of Last Intake of Solid Foods: 22:00 Procedure Planning Contraindications for Sedation: none Current Medications Reviewed: Yes Notes The planned sedation has been discussed with the patient. Informed Consent was obtained. I have identified the patient, determined the appropriateness of s edation and have assessed the patient immediately prior to the procedure. All medicine(s) and interventions are by my order.
--- NOTE | 2020-06-14 11:51 | Cardiac Catheterization ---
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 Cardiac Status Clinical evaluation leading to the procedure CAD Presenation: Stable angina Anginal Classification: CCS III Heart Failure: No Cardiogenic Shock within 24 Hours: No Cardiac Arrest within 24 Hours: No Imaging Studies Past 6 Months: Yes Stress Studies Past 6 Months: No Standard Exercise Test: No Stress Echocardiogram: No Stress Testing w/SPECT MPI: No Cardiac CTA: No Coronary Anatomy Dominant: Right Left Ventricular Angiography EF (%): n/a Diagnostic Physicians Name: Robson Rehman MD Status: Elective Closure Device Percutaneous Entry Location: Radial Closure Device: Radial Band Recommendations: Medical Therapy and/or Counseling Cardiac Cath Procedure Full Procedure Date June 14, 2020 Pre-Procedure Diagnosis Pre-Procedure Diagnosis: Angina (Exertional angina while climbing hills.) AUC Score AUC Score: 7 Post-Procedure Diagnosis Post-Procedure Diagnosis: Severe CAD and Normal Intracardiac Pressures Procedure(s) Performed Procedure(s) Performed: Coronary Angiography and Left Heart Cath Creative Developer Robson Rehman MD Junior Loan Processor(s) Smuck Estimated Blood Loss Estimated Blood Loss: < 25 ml Medication(s) Medication(s): Fentanyl, Heparin, Lidocaine 1%, Nicardipine and Versed Summary of Findings Procedures: 1. Coronary angiography 2. Left heart catheterization 3. Moderate sedation Coronary angiography: 1. Left main coronary artery: LMCA is large. No significant CAD. 2. Left anterior descending: LAD is a large-caliber vessel that wraps around the apex. Mid LAD stents patent. Distal LAD stent patent. Proximal to the LAD stent, the distal LAD has a 30% stenosis. Apical LAD 40%. Small to medium caliber diagonal originating from within the mid LAD stent has ostial 95+% stenosis with ALIYAH-3 flow (stable compared to 03/08/2019 post PCI images). 3. Circumflex: Distal circumflex 60 to 70% with ALIYAH-3 flow. Very small high OM1. Medium caliber high OM 2 proximal 50 to 70% stenosis with ALIYAH-3 flow. 4. Right coronary artery: RCA is large and dominant. Proximal RCA 30 to 40%. Mid RCA 30 to 40%. Distal RCA stent patent. Large PDA. Mid PL 40 to 50% at bifurcation of small branch vessel. Left heart catheterization: 1. Left ventriculography was not performed. 2. No significant aortic stenosis. 3. Low LVEDP; 4 mmHg. Moderate sedation: 1. Sedation start time: 11:02 AM 2. Sedation end time: 11:36 AM Impression: 1. Patent mid LAD, distal LAD, and distal RCA stents. 2. Severe stenosis of ostial diagonal originating from within mid LAD stent, stable from 03/08/2019 post PCI images. 3. Moderate to severe CAD involving distal circumflex and OM 2, stable from 03/08/2019 angiography. 4. No aortic stenosis. 5. Low left-sided filling pressure. Plan: 1. Recommend medical therapy for stable coronary artery disease. He now may be experiencing symptoms given the fact that he is participating in more strenuous activity that he has not done in quite some time due to other comorbidities. 2. Titrate beta-miguelangel and nitrate therapy. 3. Close follow-up with his primary kindergarten tutor, Dr. Seals. Hemodynamics Rest Ao:: 106/58 Final Ao: 131/66 LV: 127/0/4 Recommendations Recommendations: Medical Therapy and/or Counseling Specimens Specimens: None Radiation Exposure (mGy) 1200 mGy. Fluoro time 6.3 min. Contrast (mls) 45 ml Procedural Complication(s) None Disposition Offset Proof Press Operator Holding/Recovery I attest to the content of the Intraoperative Record and any orders documented therein. Any exceptions are noted below. [facility] Card Cath Procedure Codes Cardiac Catheterization Procedure 1: Cardiovascular Cath Procedures: 10482 Coronaries and LHC (+/-LV) Moderate Sedation Procedure 1: Sedation/Anesthesia: 59475 Mod Sedation by the same physician;Init15 Min Child Age 5 & Up Procedure 2: Sedation/Anesthesia: 31273 Mod Sedation by the same physician; Ea Kimo [id number] Minutes PG Care Time/CCT Total # of Minutes Spent Total Time Spent with Patient: Total time spent is greater than 50% in coordination of care (as documented) at patient's floor/unit and/or counseling patient:
--- NOTE | 2020-06-14 11:59 | Post Anesthesia Assessment ---
Date of Service June 14, 2020 Post Sedation Assessment Vital Signs Temp Pulse Pulse Resp BP BP BP 06/14/20 11:55 70 20 130/89 06/14/20 11:40 68 20 122/75 06/14/20 07:31 36.6 C 64 18 156/102 H 06/14/20 04:05 36.9 C 58 L 18 143/84 H 06/14/20 00:20 36.8 C 06/14/20 00:08 72 23 135/80 06/14/20 00:00 72 06/13/20 22:00 58 L 14 06/13/20 21:50 55 L 19 148/81 H 06/13/20 21:48 68 17 155/89 H 06/13/20 21:45 63 16 177/88 H 06/13/20 21:43 64 19 189/100 H 06/13/20 21:40 36.7 C 69 18 189/100 H 06/13/20 21:35 74 16 174/105 H 06/13/20 20:31 62 14 06/13/20 20:30 61 15 155/87 H 06/13/20 20:01 67 14 06/13/20 20:00 65 13 147/90 H 06/13/20 19:31 66 15 06/13/20 19:30 67 14 151/89 H 06/13/20 19:01 66 15 06/13/20 19:00 67 17 136/80 06/13/20 18:30 68 17 145/89 H 06/13/20 18:21 67 18 138/91 06/13/20 18:00 73 17 138/91 06/13/20 16:45 36.4 C L 82 18 203/98 H Pulse Ox 06/14/20 11:55 93 06/14/20 11:40 92 06/14/20 07:31 95 06/14/20 04:05 96 06/14/20 00:20 06/14/20 00:08 93 06/14/20 00:00 06/13/20 22:00 94 06/13/20 21:50 96 06/13/20 21:48 95 06/13/20 21:45 97 06/13/20 21:43 97 06/13/20 21:40 97 06/13/20 21:35 99 06/13/20 20:31 95 06/13/20 20:30 95 06/13/20 20:01 95 06/13/20 20:00 95 06/13/20 19:31 06/13/20 19:30 06/13/20 19:01 06/13/20 19:00 06/13/20 18:30 96 06/13/20 18:21 97 06/13/20 18:00 98 06/13/20 16:45 97 Recovery Score Activity: Moves 4 extremities Respiration: Deep Breath/Cough Circulation: +/-20% PreAnes Value Consciousness: Fully Awake Oxygen Saturation: > 92% On Room Air Post Anesthesia Score: 10 Discharge Sedation Level of Care: Fast Track Phase II Post Sedation Plan On clinical assessment, the patient appears to have tolerated the sedation without complications. Patient is recovering as anticipated. Patient will continue to be monitored by nursing and may be discharged when sedation discharge criteria are met per below protocol. Upon Completions of procedure up to 15 minutes continue every 5 minute vital signs and the P.A.R. score; then discharge to a Phase I or Fast Track to Phase II per the following guidelines: * Discharge Patient to appropriate Phase II area if PAR is 8 or greater or return to pre- procedure baseline. The post - procedure orders will be as directed. * If PAR score is less than 8 or not return to pre-procedure baseline then patient will follow Phase I monitoring till PAR is reached for Phase II. The Phase I may be done in procedure room or may call to secure a Phase I area. * If naloxone or flumazenil are used for reversal, hold in Phase I for continued monitoring from when last reversal dose was given for a minimum of 60 minutes or longer pending the nurse and/or physician discretion of patient condition before discharge to Phase II. Please call the Sedation Physician to re-evaluate and complete post-note for discharge to Phase II area. Do NOT discharge from procedure sedation or Phase 1 until post- sedation evaluation note is complete by procedure /sedation MD Sedation Discharge Instructions to be given to the patient at discharge to home.
[2020-06-14] MEDS ORDERED: SODIUM CHLORIDE 0.9% 1000ML 1,000 ML IV SCH (12:00)
--- NOTE | 2020-06-14 15:53 | Discharge Summary ---
Date of Service June 14, 2020 Admission HPI Per Admitting Provider 75-year-old male with past medical history type 2 diabetes, hypertension, coronary disease, dyslipidemia, peripheral artery disease, GERD, previous [place] last in March 2019 status post 2 drug-eluting stents into LAD presents with concerns of chest pain. Patient notes chest pain over the previous 2 days with activity such as taking out the garbage. Symptoms are for the duration of exertion, but are resolved almost immediately with rest. Pain described as sharp, nonradiating. 6 out of 10 on pain scale. Patient took nitro with resolution of symptoms as well. Patient notes that this feels similar to [place] las t year, but perhaps not as bad pain. Patient with associated shortness of breath, however denies any other palpitations, diaphoresis, edema, syncope or near syncope. Patient distantly denies any fevers, chills, sweats, nausea, vomiting, diarrhea, URI symptoms, abdominal pain, urinary symptoms, known sick contacts or recent travel anywhere. Patient with no other acute concerns or complaints. Pertinent labs: CBC CMP largely unremarkable. Troponin WNL 0.025 EKG: Sinus rhythm with 1st degree A-V block. Old septal infarct. No ST elevations noted. Chest x-ray: No acute cardiopulmonary findings. No significant change in appearance of the chest. ER course: Nitroglycerin paste 2 inch Principal Diagnosis Chest pain Discharge Exam Constitutional: WD/WN, vitals as above Eyes: PERRL, conjunctivae normal, anicteric sclerae ENMT: external ear and nose normal, oropharynx normal Respiratory: normal respiratory effort, lungs clear to auscultation Cardiovascular: RRR, no murmur, no edema Gastrointestinal (Abdomen): normal bowel sounds, soft, nontender, no hepatosplenomegaly Skin: no rashes, warm and dry. No swelling noted on right wrist. Psychiatric: A+Ox3, euthymic affect Discharge Data Allergies Allergy/AdvReac Type Severity Reaction Status Date / Time Sulfa (Sulfonamide Allergy Intermediate HIVES Verified 06/13/20 18:56 Antibiotics) pravastatin AdvReac Mild MUSCLE Verified 06/13/20 18:56 ACHES simvastatin AdvReac Mild MUSCLE Verified 06/13/20 18:56 ACHES Consultations 06/13/20 18:59 ED Decision to Admit Stat 06/13/20 22:08 Consult Cardiology Routine Procedures Performed Operation Date: 06/14/20 10:30 Actual Procedures p Cath, Left with Cors and Vent - Robson Rehman MD s Cineradiography w/Routine Exam - Robson Rehman MD Ordered Studies 06/14/20 10:13 CL Cath Imgs for PACS use only Routine Hospital Course (1) S/P coronary artery stent placement: Coronary angiography: 1. Left main coronary artery: LMCA is large. No significant CAD. 2. Left anterior descending: LAD is a large-caliber vessel that wraps around the apex. Mid LAD stents patent. Distal LAD stent patent. Proximal to the LAD stent, the distal LAD has a 30% stenosis. Apical LAD 40%. Small to medium caliber diagonal originating from within the mid LAD stent has ostial 95+% stenosis with ALIYAH-3 flow (stable compared to 03/08/2019 post PCI images). 3. Circumflex: Distal circumflex 60 to 70% with ALIYAH-3 flow. Very small high OM1. Medium caliber high OM 2 proximal 50 to 70% stenosis with ALIYAH-3 flow. 4. Right coronary artery: RCA is large and dominant. Proximal RCA 30 to 40%. Mid RCA 30 to 40%. Distal RCA stent patent. Large PDA. Mid PL 40 to 50% at bifurcation of small branch vessel. Left heart catheterization: 1. Left ventriculography was not performed. 2. No significant aortic stenosis. 3. Low LVEDP; 4 mmHg. Moderate sedation: 1. Sedation start time: 11:02 AM 2. Sedation end time: 11:36 AM Impression: 1. Patent mid LAD, distal LAD, and distal RCA stents. 2. Severe stenosis of ostial diagonal originating from within mid LAD stent, stable from 03/08/2019 post PCI images. 3. Moderate to severe CAD involving distal circumflex and OM 2, stable from 03/08/2019 angiography. 4. No aortic stenosis. 5. Low left-sided filling pressure. Plan: 1. Recommend medical therapy for stable coronary artery disease. He now may be experiencing symptoms given the fact that he is participating in more strenuous activity that he has not done in quite some time due to other comorbidities. 2. Titrate beta-miguelangel and nitrate therapy. 3. Close follow-up with his primary heel breaster, Dr. Seals. (2) Precordial chest pain: 75-year-old male with past medical history type 2 diabetes, hypertension, coronary disease, dyslipidemia, peripheral artery disease, GERD, previous [place] last in March 2019 status post 2 drug-eluting stents into LAD presents with concerns of chest pain admitted for chest pain rule out. Chest pain Admit to telemetry -Had cardiac cath as noted above DM 2 with neuropathy A1c 6.05 December 2019 Patient not on any diabetic medications per med rec BSG stable on admission, will not place on SSI at present Continue gabapentin 200 mg 3 times daily -patient inquires about discontinuing medicine. -will defer to PCP HTN/HLD/CAD previous [place] last in March 2019 status post 2 drug-eluting stents into LAD Continue aspirin 81 mg, clopidogrel 75 mg, lisinopril 20 mg, metoprolol adam ccinate 25 mg, isosorbide mononitrate ER 30 mg, rosuvastatin 20 mg Patient is more than a year out of last PCI. Per cardiology, would not eliminate clopidogrel long-term since he had his STEMI after this was discontinued in the past GERD Continue famotidine Dulera twice daily Total Time Total Time Spent Total Time Spent (In Minutes): 32 Total Time Includes: Examination of the Patient, Discharge Planning and Medication Reconciliation Discharge Plan Discharge Items Patient Disposition: Home - Self-Care Reason For Visit: CHEST PAIN, HIGH BLOOD PRESSURE Discharge Diagnosis: chest pain Condition on Discharge: Good Activity: Resume your previous activity Non-emergency contact: Primary Care Provider Call non-emergency contact if: you have any medication questions and your pain is concerning for you Follow-up/Referrals: Alton Mendoza MD [Primary Care Provider] - Diet: Regular Addtl Attending Provider Instructions: ACTIVITY RECOMMENDATIONS: Excess manipulation of the wrist should be avoided for the next 24-48 hours. * No lifting over 2 pounds (approximately a 1/2 gallon of milk) with the utilized arm for 24 hours. * No strenuous activity such as bowling or tennis for 3 days. * Keep the site of the procedure covered with a bandage for 24 hours. *You may shower the day after the procedure. Do not take a tub bath or submerge the puncture site in water for the next 3 days. *Do not operate any motorized equipment for 3 days. SPECIAL CARE INSTRUCTIONS: The site may be slightly bruised and sore following your procedure. Should any of the following occur, contact the Dr. who performed your procedure. 1. Redness/inflammation, swelling, chills, or fever, or colored drainage at procedure site within 3-7 days after your procedure. 2. Coldness, discoloration, ongoing numbness, severe pain, or swelling. Expect mild tingling of hand and tenderness at the puncture site for up to three days. If this persists beyond three days, or other symptoms develop, notify the Dr. who performed your procedure. BLEEDING: If the procedure site on your wrist begins to bleed, do not panic 1. Place 1 or 2 fingers firmly just slightly above the insertion site to stop the bleeding. You may be able to feel your pulse as you hold pressure. 2. Lift your finger after 5 minutes to see if the bleeding has stopped. 3. Once the bleeding has stopped, gently wipe the wrist area clean with a bandage. * If the bleeding from your wrist does not stop after 10 minutes, or if there is a large amount of bleeding or spurting, call 911 (do not drive yourself to the hospital). SKIN IRRITATION: * You may experience some redness and/or swelling in the area where radiation was administered. If any skin irritation occurs, please contact your family physician. FOLLOW UP VISIT: 1. Follow up with Dr. Seals in approx 1-2 weeks. Keep any scheduled doctor appointments. Pending Studies at Discharge: No Stand-Alone Forms: My [facility] Rotten Tomatoes, Smoking Cessation Medications and DC Order Prescriptions: New isosorbide mononitrate 60 mg Tablet Extended Release 24 Hr 60 mg PO QAM Qty: 30 RF: 0 metoprolol succinate 50 mg Tablet Extended Release 24 Hr 50 mg PO QAM Qty: 30 RF: 0 Continued coenzyme Q10 100 mg capsule 100 mg PO BID RF: 0 rosuvastatin [Crestor] 20 mg tablet 20 mg PO HS Qty: 90 RF: 3 fluticasone propionate 50 mcg/actuation spray,suspension 2 sprays INTNAS QAM Qty: 9.9 RF: 11 montelukast [Singulair] 10 mg tablet 10 mg PO HS Qty: 90 RF: 3 gabapentin 100 mg capsule 200 mg PO TID Qty: 540 RF: 1 famotidine 20 mg tablet 20 mg PO BID Qty: 180 RF: 3 nitroglycerin 0.4 mg tablet, sublingual 0.4 mg sublingual .COMPLEX Qty: 25 RF: 0 azelastine 0.15 % (205.5 mcg) spray,non-aerosol 2 spray INTNAS HS Qty: 30 RF: 6 (DME) blood-glucose meter [OneTouch Ultra2 Meter] kit See Dose Instructions .ROUTE .MEDSUPPLY Qty: 1 RF: 0 (DME) lancets [OneTouch UltraSoft Lancets] misc See Dose Instructions .ROUTE .MEDSUPPLY Qty: 100 RF: 3 (DME) OneTouch Ultra Blue Test Strip strip See Dose Instructions .ROUTE .MEDSUPPLY Qty: 50 RF: 3 hydrocortisone 2.5 % cream with perineal applicator 1 applic [place] USEASDIRECTD Qty: 1 RF: 0 dutasteride [Avodart] 0.5 mg capsule 0.5 mg PO DAILY Qty: 90 RF: 3 clopidogrel 75 mg tablet 75 mg PO QAM RF: 0 aspirin 81 mg Tablet,Delayed Release (Dr/Ec) 81 mg PO QAM RF: 0 lisinopril 20 mg tablet 20 mg PO QAM RF: 0 Discontinued isosorbide mononitrate 30 mg tablet extended release 24 hr 30 mg PO QAM Qty: 90 RF: 1 metoprolol succinate 25 mg tablet extended release 24 hr 25 mg PO QAM RF: 0 Discharge Orders: Discharge Order (Routine); Ordered 06/14/20 Ordered By: Osbaldo Bridges/Other Patient Handouts: Managing Type 2 Diabetes Admission Data Admit Date/Time: 06/13/20 20:30 Attending Provider: Osbaldo Hernandez Admit Provider: Jesus Urena Primary Care Provider: Alton Mendoza Other Providers: Andres Spear ; Robson Rehman Other Interventions: Discharge Summary Assessment (RN) Last Done: 06/14/20 15:27 Coding Level of Care Code D/C Day Management >30 mins Diagnoses S/P coronary artery stent placement Z95.5 Precordial chest pain R07.2
--- NOTE | 2020-06-15 06:20 | Electrocardiogram Report ---
Test Reason : Blood Pressure : / mmHG Vent. Rate : 074 BPM Atrial Rate : 074 BPM P-R Int : 238 ms QRS Dur : 102 ms QT Int : 384 ms P-R-T Axes : 087 -39 062 degrees QTc Int : 426 ms Sinus rhythm with 1st degree A-V block Left axis deviation Septal infarct (cited on or before 08-MAR-2019) Abnormal ECG When compared with ECG of 08-MAR-2019 17:20, Questionable change in initial forces of Septal leads Confirmed by Robson Rehman ([id number]) on 06/15/2020 6:20:06 AM Referred By: REFERRED SELF Confirmed By:Robson Rehman
--- NOTE | 2020-06-15 06:40 | Electrocardiogram Report ---
Test Reason : Blood Pressure : / mmHG Vent. Rate : 063 BPM Atrial Rate : 063 BPM P-R Int : 226 ms QRS Dur : 102 ms QT Int : 430 ms P-R-T Axes : 000 -37 037 degrees QTc Int : 440 ms Sinus rhythm with 1st degree A-V block with Premature atrial complexes in a pattern of bigeminy Left axis deviation Septal infarct (cited on or before 08-MAR-2019) Abnormal ECG When compared with ECG of 13-JUN-2020 16:52, Premature atrial complexes are now Present Confirmed by Robson Rehman ([id number]) on 06/15/2020 6:40:01 AM Referred By: REFERRED SELF Confirmed By:Robson Rehman
--- NOTE | 2020-06-15 06:48 | Electrocardiogram Report ---
Test Reason : Blood Pressure : / mmHG Vent. Rate : 059 BPM Atrial Rate : 056 BPM P-R Int : 000 ms QRS Dur : 098 ms QT Int : 440 ms P-R-T Axes : 000 -31 045 degrees QTc Int : 435 ms Sinus bradycardia Premature atrial complexes Left axis deviation Low voltage QRS Septal infarct (cited on or before 08-MAR-2019) Abnormal ECG When compared with ECG of 14-JUN-2020 00:25, No significant change Confirmed by Robson Rehman ([id number]) on 06/15/2020 6:48:42 AM Referred By: REFERRED SELF Confirmed By:Robson Rehman
--- NOTE | 2020-06-15 07:04 | Electrocardiogram Report ---
Test Reason : Blood Pressure : / mmHG Vent. Rate : 063 BPM Atrial Rate : 063 BPM P-R Int : 254 ms QRS Dur : 100 ms QT Int : 424 ms P-R-T Axes : 068 -37 044 degrees QTc Int : 433 ms Sinus rhythm with 1st degree A-V block with Premature atrial complexes in a pattern of bigeminy Left axis deviation Septal infarct (cited on or before 08-MAR-2019) Abnormal ECG When compared with ECG of 14-JUN-2020 06:43, No significant change Confirmed by Robson Rehman ([id number]) on 06/15/2020 7:04:00 AM Referred By: REFERRED SELF Confirmed By:Robson Rehman
[2020-06-15] MEDS ORDERED: ISOSORBIDE MONO EXTENDED REL 60 MG TABCR PO SCH (09:00)
[2020-06-15] MEDS ORDERED: METOPROLOL SUCC 50MG EXT REL TAB PO SCH (09:00)
--- NOTE | 2020-06-15 12:57 | Cardiology Consultation ---
Date of Consultation June 15, 2020 History of Present Illness Attending Physician: Osbaldo Hernandez Allergies Allergy/AdvReac Type Severity Reaction Status Date / Time Sulfa (Sulfonamide Allergy Intermediate HIVES Verified 06/13/20 18:56 Antibiotics) pravastatin AdvReac Mild MUSCLE Verified 06/13/20 18:56 ACHES simvastatin AdvReac Mild MUSCLE Verified 06/13/20 18:56 ACHES Home Medications Medication Instructions Recorded Confirmed Type coenzyme Q10 100 mg capsule 100 mg PO BID cap 03/12/18 06/13/20 History OneTouch Ultra Blue Test Strip #50 ea NS 12/23/18 04/20/20 Rx OneTouch Ultra2 Meter #1 ea NS 12/23/18 04/20/20 Rx OneTouch UltraSoft Lancets #100 ea NS 12/23/18 04/20/20 Rx rosuvastatin 20 mg tablet 20 mg PO HS #90 tab 06/15/19 06/13/20 Rx hydrocortisone 2.5 % topical cream 1 applic [place] USEASDIRECTD #1 gm 06/18/19 06/13/20 History with perineal applicator fluticasone propionate 50 2 sprays INTNAS QAM #9.9 ml 09/06/19 06/13/20 Rx mcg/actuation nasal spray,suspension montelukast 10 mg tablet 10 mg PO HS #90 tab 10/31/19 06/13/20 Rx clopidogrel 75 mg tablet 75 mg PO QAM tab 12/26/19 06/13/20 History gabapentin 100 mg capsule 200 mg PO TID #540 cap 02/06/20 06/13/20 Rx dutasteride 0.5 mg capsule 0.5 mg PO DAILY #90 cap 03/13/20 06/13/20 Rx famotidine 20 mg tablet 20 mg PO BID #180 tab 03/22/20 06/13/20 Rx nitroglycerin 0.4 mg sublingual 0.4 mg SUBLINGUAL .COMPLEX #25 tab 05/01/20 06/13/20 Rx tablet azelastine 0.15 % (205.5 mcg) 2 spray INTNAS HS #30 ml 06/04/20 06/13/20 Rx nasal spray aspirin 81 mg PO QAM 06/13/20 06/13/20 History lisinopril 20 mg PO QAM 12/09/20 12/09/20 History isosorbide mononitrate 60 mg PO QAM #30 tab 06/14/20 Rx metoprolol succinate 50 mg PO QAM #30 tab 06/14/20 Rx Patient History Medical History (Updated 06/14/20 @ 10:12 by Robson Rehman MD) Acquired deviated nasal septum Actinic keratosis Anosmia Arthritis Benign colonic polyp Benign localized hyperplasia of prostate with urinary obstruction BRBPR (bright red blood per rectum) Calculus of kidney Carotid artery plaque No significant stenosis 2019 ultrasound Dizziness Dyslipidemia GERD (gastroesophageal reflux disease) Gross hematuria Hemorrhoids History of cataract HLD (hyperlipidemia) Hypertension Impaired fasting glucose Inguinal hernia Keloid scar Lumbar radiculopathy Microscopic hematuria Nephrolithiasis Obesity Osteoarthritis PAD (peripheral artery disease) Chronically on Plavix Paresthesia of right arm Pneumonia Polyneuropathy Retention of urine Sacroiliitis Sciatica Spinal stenosis of lumbar region Vertigo Surgical History (Updated 06/14/20 @ 10:12 by Robson Rehman MD) H/O cataract extraction H/O transurethral resection of prostate History of adenoidectomy History of cataract surgery LEFT CATARACT History of colonoscopy History of esophagogastroduodenoscopy (EGD) History of herniorrhaphy RT/LEFT INGUINAL History of inguinal herniorrhaphy History of tonsillectomy History of tooth extraction History of umbilical hernia repair Nasal polyps REMOVED Presence of stent in LAD coronary artery (2007) S/P coronary artery stent placement S/P right coronary artery (RCA) stent placement (2013) Family History Family history of diabetes mellitus Grandmother Coronary heart disease Father Mother Myocardial infarction Father Denies family history of Ovarian cancer Prostate cancer Breast cancer Colorectal cancer Social History Smoking Status: Former smoker Tobacco Type: Cigarettes Age Started Using Tobacco: 38; Age Quit Using Tobacco: 58; packs per day: 1.5; Years Smoked: 20; Cigarettes Per Day: 40; Number of Years Since Quit: 15; Second Hand Exposure: No (REMOTE HISTORY); Hx Alcohol Use: No Hx Substance Use: No Preferred Language: Slovenian Communication Ability: Effective Visual Impairment: No Limitations Hearing Ability: Use of Hearing Aid Band Reamer Machine Operator Required: No Beliefs That Will Affect Care: None marital status: / Current Living Situation: Alone current occupational status: retired 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 Feels Safe at Home: Yes Childhood Exposure to Second-Hand Smoke: Yes caffeine: No Dental Care, Regularly: No Physical Activity Frequency: 1-2 Times per Week Physical Activity Frequency Comment: cardiac rehab, treadmill, weights 60minutes Seatbelt Use: always Sunscreen Use: Yes Assistive Devices: Denture - Upper, Denture - Lower and Hearing Aid - Bilateral
--- NOTE | 2020-06-16 03:00 | Billing Data ---
Date of Service June 16, 2020 Coding Level of Care Code 03598 OBS Care - Level 3
== END 2020-06-14 16:21 | disposition home or self-care (01) ==
LOC: ED 16:42 → 1E 16:42 → SUATTDRO 20:30 → 1E 21:36 → 2S 06-14 12:07